=== PATIENT | male | born 1980 | race Caucasian/White ===

== ENCOUNTER 2016-09-04 13:49 | Inpatient (IN) | payer OTHER ==
[2016-09-04] MEDS ORDERED: ONDANSETRON 4 MG/2 ML VIAL IVP STA (14:23)
[2016-09-04] MEDS ORDERED: SODIUM CHLORIDE 0.9% 1,000 ML IV STA ×3 (14:23→15:44)
[2016-09-04] MEDS ORDERED: PANTOPRAZOLE 40 MG/10 ML VIAL IVP STA (14:23)
[2016-09-04] MEDS ORDERED: SODIUM CHLORIDE 0.9% 500 ML IV STA ×2 (14:23→15:44)
[2016-09-04 14:53] LABS: Basophils % (A) 0 %; CH 29.4; CHCM 32.2; Eosinophils % (A) 0 %; HCT 39.9 % (39.0-53.0); HDW 2.47; HGB 12.7 gm/dL (13.0-17.5); Luc % (Auto) 1; Lymphocytes % (A) 6 %; MCH 29.3 pg (25.0-35.0); MCHC 31.9 g/dL (31.0-37.0); MCV 91.8 fL (80.0-100.0); Mean Platelet Volume 7.5; Monocytes # (A) 0.4 k/uL (0-1.0); Monocytes % (A) 3 %; Neutrophils # (A) 13.9 k/uL (1.3-7.7); Neutrophils % (A) 90 %; RBC 4.35 m/uL (4.30-5.90); RDW 13.4 % (11.5-15.5); WBC 15.5 k/uL (3.8-10.6); WBC (Perox) 15.24
--- NOTE | 2016-09-04 14:58 | ED ---
General Adult HPI - General Chief complaint: Nausea/Vomiting/Diarrhea Stated complaint: Weakness Time Seen by Provider: 09/04/16 14:22 Source: EMS, RN notes reviewed, old records reviewed Mode of arrival: EMS Limitations: no limitations - History of Present Illness Initial comments: This is a 36-year-old male here for evaluation nausea vomiting diarrhea. Patient is of from diabetes, has had previous DKA. Patient is in severe distress with vomiting unable to give a great history, patient denies drugs or alcohol abuse, denies fevers. No chest patient was with her bowel movement. Patient is brought in by EMS states patient's blood sugar was critically high, history otherwise is obtained from EMS and the patient's chart - Related Data Home Medications Medication Instructions Recorded Confirmed Lisinopril [Zestril] 2.5 mg PO DAILY 08/30/15 09/04/16 Multivitamin [Men's Multi-Vitamin] 1 tab PO DAILY 08/30/15 09/04/16 Varenicline [Chantix] 1 mg PO BID 03/15/16 09/04/16 Insulin Aspart (For Pump) [NovoLOG 0.01 unit SQ-PUMP CONTINUOUS 05/23/16 (For Pump)] Acyclovir [Zovirax] 800 mg PO TID 09/04/16 09/04/16 Citalopram Hydrobromide [CeleXA] 20 mg PO DAILY 09/04/16 09/04/16 Gabapentin [Neurontin] 100 mg PO DAILY 09/04/16 09/04/16 Pregabalin [Lyrica] 200 mg PO BID 09/04/16 09/04/16 Previous Rx's Medication Instructions Recorded Tamsulosin [Flomax] 0.4 mg PO PC-[id number] #30 cap.er.24h 03/19/16 Metoprolol Tartrate 25 mg PO BID #0 03/22/16 Allergies Allergy/AdvReac Type Severity Reaction Status Date / Time No Known Allergies Allergy Verified 09/04/16 14:11 Review of Systems ROS Statement: Those systems with pertinent positive or pertinent negative responses have been documented in the HPI. ROS Other: All systems not noted in ROS Statement are negative. Past Medical History Past Medical History: Diabetes Mellitus, Hypertension Additional Past Medical History / Comment(s): WOUND TO LEFT DORSUM FOOT, insulin pump History of Any Multi-Drug Resistant Organisms: None Reported Past Surgical History: Orthopedic Surgery Additional Past Surgical History / Comment(s): hand surg.-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 Amputation of L great toe. Surgical I & D left foot dorsum Past Anesthesia/Blood Transfusion Reactions: No Reported Reaction Past Psychological History: Depression Smoking Status: Current every day smoker Past Alcohol Use History: Rare Additional Past Alcohol Use History / Comment(s): pt states he smokes 4 to 5 cigs a day but is using chantix to quit. He denies any medical marijuana, marijuana, street drug use. He is currently living at home with his . 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 There is a dog and a rabbit in the home. No service. No recent travels. Past Drug Use History: None Reported - Past Family History Father Family Medical History: No Reported History Mother Family Medical History: Cancer General Exam Limitations: no limitations General appearance: alert, in no apparent distress Head exam: Present: atraumatic, normocephalic, normal inspection Eye exam: Present: normal appearance, PERRL, EOMI. Absent: scleral icterus, conjunctival injection, periorbital swelling ENT exam: Present: mucous membranes dry Neck exam: Present: normal inspection. Absent: tenderness, meningismus, lymphadenopathy Respiratory exam: Present: normal lung sounds bilaterally. Absent: respiratory distress, wheezes, rales, rhonchi, stridor Cardiovascular Exam: Present: normal rhythm, tachycardia, normal heart sounds. Absent: systolic murmur, diastolic murmur, rubs, gallop, clicks GI/Abdominal exam: Present: soft, normal bowel sounds. Absent: distended, tenderness, guarding, rebound, rigid Extremities exam: Present: normal inspection, full ROM, normal capillary refill. Absent: tenderness, pedal edema, joint swelling, calf tenderness Back exam: Present: normal inspection Neurological exam: Present: alert, oriented X3, CN II-XII intact Psychiatric exam: Present: normal affect, normal mood Skin exam: Present: warm, dry, intact, normal color. Absent: rash Course Vital Signs 09/04/16 09/04/16 13:53 15:34 Temperature 98.7 F Pulse Rate 115 H 119 H Respiratory 22 22 Rate Blood Pressure 140/66 131/61 O2 Sat by Pulse 99 100 Oximetry - Reevaluation(s) Reevaluation #1: 09/04/16 15:46 Patient is doing mildly improved with symptom control, antiemetics and IV fluid EKG Findings - EKG Comments: EKG Findings:: EKG shows sinus tachycardia rate 1:15, ID 142, QRS 90, QTC 439 Medical Decision Making - Medical Decision Making 36 Melvia Yg nausea vomiting diarrhea. Patient having DKA, indicated patient is a type I diabetic. Patient will be admitted for insulin therapy, nothing by mouth, IV hydration and re-auscultation, monitoring of electrolytes, telemetry. - Lab Data Result diagrams: 09/04/16 13:57 09/04/16 13:57 Lab Results 09/04/16 09/04/16 09/04/16 Range/Units 13:57 13:57 13:57 WBC 15.5 H (3.8-10.6) k/uL RBC 4.35 (4.30-5.90) m/uL Hgb 12.7 L (13.0-17.5) gm/dL Hct 39.9 (39.0-53.0) % MCV 91.8 (80.0-100.0) fL MCH 29.3 (25.0-35.0) pg MCHC 31.9 (31.0-37.0) g/dL RDW 13.4 (11.5-15.5) % Plt Count 283 (150-450) k/uL Neutrophils % 90 % Lymphocytes % 6 % Monocytes % 3 % Eosinophils % 0 % Basophils % 0 % Neutrophils # 13.9 H (1.3-7.7) k/uL Lymphocytes # 1.0 (1.0-4.8) k/uL Monocytes # 0.4 (0-1.0) k/uL Eosinophils # 0.0 (0-0.7) k/uL Basophils # 0.0 (0-0.2) k/uL VBG pH (7.31-7.41) VBG pCO2 (37-51) mmHg VBG HCO3 (24-28) mmol/L Sodium 132 L (137-145) mmol/L Potassium 5.3 H (3.5-5.1) mmol/L Chloride 94 L (98-107) mmol/L Carbon Dioxide 7 L* (22-30) mmol/L Anion Gap 31 mmol/L BUN 49 H (9-20) mg/dL Creatinine 1.15 (0.66-1.25) mg/dL Est GFR (MDRD) Af Amer >60 (>60 ml/min/1.73 sqM) Est GFR (MDRD) Non-Af >60 (>60 ml/min/1.73 sqM) Glucose 517 H* (74-99) mg/dL Calcium 9.0 (8.4-10.2) mg/dL Phosphorus 4.3 (2.5-4.5) mg/dL Magnesium 2.3 (1.6-2.3) mg/dL Total Bilirubin 1.2 (0.2-1.3) mg/dL AST 35 (17-59) U/L ALT 50 (21-72) U/L Alkaline Phosphatase 101 (38-126) U/L Total Creatine Kinase 180 H (55-170) U/L CK-MB (CK-2) 3.5 H* (0.0-2.4) ng/mL CK-MB (CK-2) Rel Index 1.9 Troponin I 0.017 (0.000-0.034) ng/mL Total Protein 6.9 (6.3-8.2) g/dL Albumin 4.2 (3.5-5.0) g/dL Acetone, Qual Positive (Negative) 09/04/16 Range/Units 14:41 WBC (3.8-10.6) k/uL RBC (4.30-5.90) m/uL Hgb (13.0-17.5) gm/dL Hct (39.0-53.0) % MCV (80.0-100.0) fL MCH (25.0-35.0) pg MCHC (31.0-37.0) g/dL RDW (11.5-15.5) % Plt Count (150-450) k/uL Neutrophils % % Lymphocytes % % Monocytes % % Eosinophils % % Basophils % % Neutrophils # (1.3-7.7) k/uL Lymphocytes # (1.0-4.8) k/uL Monocytes # (0-1.0) k/uL Eosinophils # (0-0.7) k/uL Basophils # (0-0.2) k/uL VBG pH 7.22 L (7.31-7.41) VBG pCO2 18 L* (37-51) mmHg VBG HCO3 7 L* (24-28) mmol/L Sodium (137-145) mmol/L Potassium (3.5-5.1) mmol/L Chloride (98-107) mmol/L Carbon Dioxide (22-30) mmol/L Anion Gap mmol/L BUN (9-20) mg/dL Creatinine (0.66-1.25) mg/dL Est GFR (MDRD) Af Amer (>60 ml/min/1.73 sqM) Est GFR (MDRD) Non-Af (>60 ml/min/1.73 sqM) Glucose (74-99) mg/dL Calcium (8.4-10.2) mg/dL Phosphorus (2.5-4.5) mg/dL Magnesium (1.6-2.3) mg/dL Total Bilirubin (0.2-1.3) mg/dL AST (17-59) U/L ALT (21-72) U/L Alkaline Phosphatase (38-126) U/L Total Creatine Kinase (55-170) U/L CK-MB (CK-2) (0.0-2.4) ng/mL CK-MB (CK-2) Rel Index Troponin I (0.000-0.034) ng/mL Total Protein (6.3-8.2) g/dL Albumin (3.5-5.0) g/dL Acetone, Qual (Negative) Critical Care Time Critical Care Time: Yes Total Critical Care Time: 31 Disposition Clinical Impression: Dehydration, Gastroenteritis, DKA (diabetic ketoacidoses) Disposition: ADMITTED IP TO THIS [facility] Condition: Serious Referrals: Eliana Ramsay MD [Primary Care Provider] - 1-2 days
[2016-09-04 15:00] LABS: VBG PH 7.22 (7.31-7.41)
[2016-09-04 15:09] LABS: ALT 50 U/L (21-72); AST 35 U/L (17-59); Alkaline Phosphatase 101 U/L (38-126); Anion Gap 31 mmol/L; Blood Urea Nitrogen 49 mg/dL (9-20); Chloride 94 mmol/L (98-107); Magnesium 2.3 mg/dL (1.6-2.3); Non-African American GFR(MDRD) >60 (>60 ml/min/1.73 sqM); Phosphorous 4.3 mg/dL (2.5-4.5); Potassium 5.3 mmol/L (3.5-5.1); Sodium 132 mmol/L (137-145); Total Bilirubin 1.2 mg/dL (0.2-1.3); Total Protein 6.9 g/dL (6.3-8.2)
[2016-09-04 15:29] LABS: Troponin I 0.017 ng/mL (0.000-0.034)
[2016-09-04 15:32] LABS: Creatine Kinase MB 3.5 ng/mL (0.0-2.4)
[2016-09-04 15:36] LABS: Glucose 517 mg/dL (74-99)
[2016-09-04 15:37] LABS: Carbon Dioxide 7 mmol/L (22-30)
[2016-09-04] MEDS ORDERED: SODIUM CHLORIDE 0.9% 1,000 ML IV ONE (15:44)
[2016-09-04] MEDS ORDERED: INSULIN REGULAR BOLUS (FROM DRIP BAG) IV ONE ×2 (15:44→17:08)
[2016-09-04] MEDS ORDERED: INSULIN REGULAR 100 UNIT in SODIUM CHLORIDE 0.9% 100 ML IV SCH (15:45)
[2016-09-04] MEDS ORDERED: SODIUM CHLORIDE 0.9% 1,000 ML IV SCH (15:45)
[2016-09-04 16:40] LABS: Glucose,Whole Blood 450 mg/dL (75-99)
[2016-09-04 17:03] LABS: Glucose,Whole Blood 415 mg/dL (75-99)
[2016-09-04] MEDS ORDERED: Potassium Replacement Protocol 1 EACH MISC MISCELLANE PRN (17:08)
[2016-09-04] MEDS ORDERED: Magnesium Replacement Protocol 1 EACH MISC MISCELLANE PRN (17:08)
[2016-09-04 17:44] VITALS: RESP 16
[2016-09-04 18:00] LABS: Glucose,Whole Blood 382 mg/dL (75-99)
[2016-09-04] MEDS: D5-0.45% NACL WITH KCL 20MEQ/L 1,000 ML IV SCH ×2 (18:49→23:00)
[2016-09-04 19:01] LABS: Anion Gap 24 mmol/L; Blood Urea Nitrogen 41 mg/dL (9-20); Chloride 108 mmol/L (98-107); Glucose 375 mg/dL (74-99); Non-African American GFR(MDRD) >60 (>60 ml/min/1.73 sqM); Phosphorous 3.8 mg/dL (2.5-4.5); Potassium 4.7 mmol/L (3.5-5.1); Sodium 138 mmol/L (137-145)
[2016-09-04 19:06] LABS: Carbon Dioxide 6 mmol/L (22-30)
[2016-09-04 19:24] LABS: Glucose,Whole Blood 344 mg/dL (75-99)
[2016-09-04 20:06] LABS: Glucose,Whole Blood 313 mg/dL (75-99)
[2016-09-04 21:07] LABS: Glucose,Whole Blood 261 mg/dL (75-99)
[2016-09-04 21:18] LABS: Appearance,Urine Clear (Clear); Bilirubin,Urine Negative (Negative); Glucose,Urine (UA) 4+ (Negative); Leukocyte Esterase,Urine Negative (Negative); Nitrite,Urine Negative (Negative); Protein,Urine Negative (Negative); Specific Gravity,Urine 1.013 (1.001-1.035); UA Billing (MACRO vs. MICRO) CHEM; Urobilinogen,Urine <2.0 mg/dL (<2.0)
[2016-09-04 21:34] LABS: Ketones,Urine 4+ (Negative)
[2016-09-04] MEDS: METOPROLOL TARTRATE 25 MG TAB PO SCH (22:09)
[2016-09-04] MEDS: PREGABALIN 100 MG CAP PO SCH (22:09)
[2016-09-04] MEDS: VARENICLINE 1 MG TAB PO SCH (22:09)
[2016-09-04] MEDS: ACYCLOVIR 800 MG TAB PO SCH (22:09)
[2016-09-04 22:11] LABS: Glucose,Whole Blood 223 mg/dL (75-99)
[2016-09-04 22:53] LABS: Anion Gap 17 mmol/L; Blood Urea Nitrogen 34 mg/dL (9-20); Carbon Dioxide 13 mmol/L (22-30); Chloride 110 mmol/L (98-107); Glucose 231 mg/dL (74-99); Non-African American GFR(MDRD) >60 (>60 ml/min/1.73 sqM); Phosphorous 2.4 mg/dL (2.5-4.5); Potassium 4.3 mmol/L (3.5-5.1); Sodium 140 mmol/L (137-145)
[2016-09-04 23:08] LABS: Glucose,Whole Blood 232 mg/dL (75-99)
[2016-09-05 00:03] LABS: Glucose,Whole Blood 188 mg/dL (75-99)
[2016-09-05 01:03] LABS: Glucose,Whole Blood 142 mg/dL (75-99)
[2016-09-05 02:08] LABS: Glucose,Whole Blood 145 mg/dL (75-99)
[2016-09-05 02:35] LABS: Anion Gap 9 mmol/L; Blood Urea Nitrogen 30 mg/dL (9-20); Carbon Dioxide 20 mmol/L (22-30); Chloride 113 mmol/L (98-107); Glucose 135 mg/dL (74-99); Non-African American GFR(MDRD) >60 (>60 ml/min/1.73 sqM); Phosphorous 2.1 mg/dL (2.5-4.5); Potassium 4.2 mmol/L (3.5-5.1); Sodium 142 mmol/L (137-145)
[2016-09-05 02:56] LABS: Glucose,Whole Blood 120 mg/dL (75-99)
[2016-09-05 04:06] LABS: Glucose,Whole Blood 143 mg/dL (75-99)
[2016-09-05] MEDS ORDERED: D5-0.45% NACL WITH KCL 20MEQ/L 1,000 ML IV SCH (05:00)
[2016-09-05 05:06] LABS: Glucose,Whole Blood 132 mg/dL (75-99)
[2016-09-05 06:07] LABS: Glucose,Whole Blood 158 mg/dL (75-99)
[2016-09-05] MEDS: INSULIN LISPRO (humaLOG) 300 UNIT/3 ML VIAL SQ SCH ×6 (06:58→17:21)
[2016-09-05 07:11] LABS: Glucose,Whole Blood 226 mg/dL (75-99)
[2016-09-05] MEDS ORDERED: TAMSULOSIN 0.4 MG CAP.ER.24H PO SCH (08:30)
[2016-09-05] MEDS ORDERED: LISINOPRIL 2.5 MG TAB PO SCH (09:00)
[2016-09-05] MEDS ORDERED: CITALOPRAM HYDROBROMIDE 20 MG TAB PO SCH (09:00)
[2016-09-05] MEDS ORDERED: MULTIVITAMINS, THERA 1 EACH TAB PO SCH (09:00)
[2016-09-05] MEDS ORDERED: INSULIN GLARGINE 100 UNIT/ML 10 ML VIAL SQ SCH (09:00)
[2016-09-05] MEDS ORDERED: GABAPENTIN 100 MG CAP PO SCH (09:00)
[2016-09-05] MEDS: METOPROLOL TARTRATE 25 MG TAB PO SCH (09:24)
[2016-09-05] MEDS: VARENICLINE 1 MG TAB PO SCH (09:24)
[2016-09-05] MEDS: ACYCLOVIR 800 MG TAB PO SCH ×2 (09:24→17:19)
[2016-09-05] MEDS: PREGABALIN 100 MG CAP PO SCH (09:25)
[2016-09-05 11:24] VITALS: BMI 20.4
[2016-09-05 11:31] LABS: Glucose,Whole Blood 432 mg/dL (75-99)
[2016-09-05] MEDS ORDERED: INSULIN REGULAR 100 UNIT/ML VIAL IV ONE ×2 (12:06→18:54)
[2016-09-05 13:56] LABS: Glucose,Whole Blood 494 mg/dL (75-99)
[2016-09-05] MEDS ORDERED: INSULIN LISPRO (humaLOG) 300 UNIT/3 ML VIAL SQ PRN (14:29)
[2016-09-05] MEDS ORDERED: INSULIN PUMP BASAL RATES 1 EACH MISC MISCELLANE PRN (14:29)
[2016-09-05] MEDS ORDERED: INSPUCOR MISCELLANE PRN (14:29)
[2016-09-05 14:53] LABS: Hemoglobin A1C 9.7 % (4.2-6.1)
[2016-09-05 15:38] LABS: Glucose,Whole Blood 334 mg/dL (75-99)
[2016-09-05 16:21] LABS: Glucose,Whole Blood 320 mg/dL (75-99)
--- NOTE | 2016-09-05 17:19 | P.HPIM ---
History of Present Illness H&P Date: 09/05/16 Chief Complaint: Nausea 36-year-old gentleman with the diabetes type 1 on a insulin pump comes in the hospital with episode of nausea and multiple episodes of vomiting prior to admission. Patient stated that his kids were sick and he has not been feeling his usual health a day prior to admission. In the ER patient was noted to be in diabetic ketoacidosis was started on a drip and then transferred off back to his insulin pump. His insulin pump settings were 0.85 units per hour basal and patient does 1 unit per 10 g of carbohydrate count pre-meal. Patient sees an insurance and benefits clerk out of the [place] system. Patient's laboratory values are within normal limits. Denies having any nausea , vomiting, diarrhea. Patient tolerated his lunch well denies having any additional complaints. States to be in his normal health of this time. Review of Systems All systems: negative (Noted in HPI) Past Medical History Past Medical History: Diabetes Mellitus, Hypertension Additional Past Medical History / Comment(s): WOUND TO LEFT DORSUM FOOT (closed) , insulin pump, neuropathy History of Any Multi-Drug Resistant Organisms: None Reported Past Surgical History: Orthopedic Surgery Additional Past Surgical History / Comment(s): hand surg.-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 Amputation of L great toe. Surgical I & D left foot dorsum Past Anesthesia/Blood Transfusion Reactions: No Reported Reaction Past Psychological History: Depression Smoking Status: Light tobacco smoker Past Alcohol Use History: Rare Additional Past Alcohol Use History / Comment(s): pt states he smokes 4 to 5 cigs a day but is using chantix to quit. He denies any medical marijuana, marijuana, street drug use. He is currently living at home with his . 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 There is a dog and a rabbit in the home. No service. No recent travels. Past Drug Use History: None Reported Additional Drug Use History / Comment(s): smokes 1-2 daily - Past Family History Father Family Medical History: No Reported History Mother Family Medical History: Cancer Medications and Allergies Home Medications Medication Instructions Recorded Confirmed Type Lisinopril [Zestril] 2.5 mg PO DAILY 08/30/15 09/04/16 History Multivitamin [Men's Multi-Vitamin] 1 tab PO DAILY 08/30/15 09/04/16 History Varenicline [Chantix] 1 mg PO BID 03/15/16 09/04/16 History Insulin Aspart (For Pump) [NovoLOG 0.01 unit SQ-PUMP CONTINUOUS 05/23/16 History (For Pump)] Acyclovir [Zovirax] 800 mg PO TID 09/04/16 09/04/16 History Citalopram Hydrobromide [CeleXA] 20 mg PO DAILY 09/04/16 09/04/16 History Gabapentin [Neurontin] 100 mg PO DAILY 09/04/16 09/04/16 History Pregabalin [Lyrica] 200 mg PO BID 09/04/16 09/04/16 History Allergies Allergy/AdvReac Type Severity Reaction Status Date / Time No Known Allergies Allergy Verified 09/04/16 14:11 Physical Exam Vitals: Vital Signs Temp Pulse Resp BP Pulse Ox 09/05/16 12:00 98 124/67 95 09/05/16 08:00 96.7 F L 101 H 113/59 96 09/05/16 03:41 97.0 F L 95 16 116/63 96 09/05/16 00:00 16 126/63 95 09/04/16 20:00 96.8 F L 114 H 16 140/71 97 09/04/16 18:06 116 H 16 Intake and Output 09/05/16 09/05/16 09/05/16 06:59 14:59 22:59 Intake Total 45.650 236 Output Total 0 Balance 45.650 236 Intake: Intake, IV Titration 45.650 Amount Insulin Regular 100 unit 45.650 In Sodium Chloride 0.9% 100 ml @ 0.1 UNITS/KG/HR 7.33 mls/hr IV .[id number] [facility] Rx#:[id number] Oral 236 Output: Urine 0 Other: # Voids 1 Weight 68.2 kg 68.2 kg Patient Weight 09/06/16 06:59 Weight 68.2 kg Physical exam Gen. appearance oriented 3 in no distress Neck is supple no JVD Lungs good air entry clear to auscultation no rhonchi or wheezing Heart S1-S2 heard regular rate and rhythm no murmurs appreciated Abdomen is soft nontender no organomegaly bowel sounds are intact Neurologically cranial nerves II-12 grossly intact no focal motor or sensory deficits noted Skin no abnormalities appreciated Results CBC & Chem 7: 09/04/16 13:57 09/05/16 01:57 Labs: Abnormal Lab Results - Last 24 Hours (Table) 09/04/16 09/04/16 09/04/16 Range/Units 17:54 17:58 19:20 Chloride 108 H (98-107) mmol/L Carbon Dioxide 6 L* (22-30) mmol/L BUN 41 H (9-20) mg/dL Glucose 375 H (74-99) mg/dL POC Glucose (mg/dL) 382 H (75-99) mg/dL Phosphorus (2.5-4.5) mg/dL Urine Glucose (UA) 4+ H (Negative) Urine Ketones 4+ H (Negative) 09/04/16 09/04/16 09/04/16 Range/Units 19:22 20:04 21:06 Chloride (98-107) mmol/L Carbon Dioxide (22-30) mmol/L BUN (9-20) mg/dL Glucose (74-99) mg/dL POC Glucose (mg/dL) 344 H 313 H 261 H (75-99) mg/dL Phosphorus (2.5-4.5) mg/dL Urine Glucose (UA) (Negative) Urine Ketones (Negative) 09/04/16 09/04/16 09/04/16 Range/Units 22:10 22:17 23:06 Chloride 110 H (98-107) mmol/L Carbon Dioxide 13 L (22-30) mmol/L BUN 34 H (9-20) mg/dL Glucose 231 H (74-99) mg/dL POC Glucose (mg/dL) 223 H 232 H (75-99) mg/dL Phosphorus 2.4 L (2.5-4.5) mg/dL Urine Glucose (UA) (Negative) Urine Ketones (Negative) 09/05/16 09/05/16 09/05/16 Range/Units 00:01 01:02 01:57 Chloride 113 H (98-107) mmol/L Carbon Dioxide 20 L (22-30) mmol/L BUN 30 H (9-20) mg/dL Glucose 135 H (74-99) mg/dL POC Glucose (mg/dL) 188 H 142 H (75-99) mg/dL Phosphorus 2.1 L (2.5-4.5) mg/dL Urine Glucose (UA) (Negative) Urine Ketones (Negative) 09/05/16 09/05/16 09/05/16 Range/Units 02:03 02:55 04:04 Chloride (98-107) mmol/L Carbon Dioxide (22-30) mmol/L BUN (9-20) mg/dL Glucose (74-99) mg/dL POC Glucose (mg/dL) 145 H 120 H 143 H (75-99) mg/dL Phosphorus (2.5-4.5) mg/dL Urine Glucose (UA) (Negative) Urine Ketones (Negative) 09/05/16 09/05/16 09/05/16 Range/Units 05:04 06:05 07:00 Chloride (98-107) mmol/L Carbon Dioxide (22-30) mmol/L BUN (9-20) mg/dL Glucose (74-99) mg/dL POC Glucose (mg/dL) 132 H 158 H 226 H (75-99) mg/dL Phosphorus (2.5-4.5) mg/dL Urine Glucose (UA) (Negative) Urine Ketones (Negative) 09/05/16 09/05/16 09/05/16 Range/Units 11:28 13:54 15:17 Chloride (98-107) mmol/L Carbon Dioxide (22-30) mmol/L BUN (9-20) mg/dL Glucose (74-99) mg/dL POC Glucose (mg/dL) 432 H 494 H 334 H (75-99) mg/dL Phosphorus (2.5-4.5) mg/dL Urine Glucose (UA) (Negative) Urine Ketones (Negative) 09/05/16 Range/Units 16:17 Chloride (98-107) mmol/L Carbon Dioxide (22-30) mmol/L BUN (9-20) mg/dL Glucose (74-99) mg/dL POC Glucose (mg/dL) 320 H (75-99) mg/dL Phosphorus (2.5-4.5) mg/dL Urine Glucose (UA) (Negative) Urine Ketones (Negative) Microbiology - Last 24 Hours (Table) 09/04/16 19:20 Urine Culture - Preliminary Urine,Voided Thrombosis Risk Factor Assmnt - Choose All That Apply Any of the Below Risk Factors Present?: No Assessment and Plan Plan: #1 diabetic ketoacidosis #2 leukocytosis #3 viral syndrome Plan Patient will be given IV regular insulin 5 units. Patient is to continue his home regimen. The case likely secondary to viral etiology. Patient denies having any constitutional symptoms at this time. Patient will be given an additional 1 L of lactated ringer solution prior to discharge. recommended to follow-up with his primary care physician.
[2016-09-05 17:58] VITALS: BP 118/65; PULSE 103; TEMP 97.2
[2016-09-05] MEDS ORDERED: LACTATED RINGERS 1,000 ML IV ONE (19:00)
== END 2016-09-05 21:46 | disposition home or self-care (01) | DRG 639 ==
LOC: EC 13:49 → SUPCPDRO 13:49 → 6SEL 15:45
PROVIDERS: ADMIT Hospitalist; ATTEND Hospitalist
DX: E10.10 Type 1 diabetes mellitus with ketoacidosis without coma (principal); E10.40 Type 1 diabetes mellitus with diabetic neuropathy, unspecified; I10 Essential (primary) hypertension; F32.9 Major depressive disorder, single episode, unspecified; E86.0 Dehydration; F17.200 Nicotine dependence, unspecified, uncomplicated; K52.9 Noninfective gastroenteritis and colitis, unspecified; B34.9 Viral infection, unspecified; D72.829 Elevated white blood cell count, unspecified; Z79.4 Long term (current) use of insulin; Z96.41 Presence of insulin pump (external) (internal); Z79.899 Other long term (current) drug therapy; Z89.412 Acquired absence of left great toe; Z89.021 Acquired absence of right finger(s)
CPT/HCPCS: 36415; 80051; 80053; 81003; 82009; 82550; 82553; 82565; 82803; 82947; 83036; 83735; 84100; 84484; 84520; 85025; 87086; 93005; 96361; 96375; 99291

== ENCOUNTER 2017-08-17 12:36 | Inpatient (IN) | payer OTHER ==
[2017-08-17 13:28] LABS: Glucose,Whole Blood 408 mg/dL (75-99)
[2017-08-17] MEDS ORDERED: SODIUM CHLORIDE 0.9% 2,000 ML IV ONE (13:49)
[2017-08-17] MEDS ORDERED: KETOROLAC 30 MG/ML 1 ML VIAL IVP STA (13:49)
[2017-08-17] MEDS ORDERED: diphenhydrAMINE 50 MG/ML 1 ML VIAL IVP STA (13:49)
[2017-08-17] MEDS ORDERED: METOCLOPRAMIDE 5 MG/ML 2 ML VIAL IVP STA (13:49)
[2017-08-17 14:03] LABS: Basophils # (A) 0.1 k/uL (0-0.2); Basophils % (A) 0 %; Eosinophils % (A) 0 %; HCT 45.6 % (39.0-53.0); HGB 15.2 gm/dL (13.0-17.5); Lymphocytes # (A) 1.4 k/uL (1.0-4.8); Lymphocytes % (A) 13 %; MCH 30.7 pg (25.0-35.0); MCHC 33.3 g/dL (31.0-37.0); MCV 92.3 fL (80.0-100.0); Mean Platelet Volume 7.3; Monocytes # (A) 0.3 k/uL (0-1.0); Monocytes % (A) 3 %; Neutrophils # (A) 8.7 k/uL (1.3-7.7); Neutrophils % (A) 82 %; Platelet Count 289 k/uL (150-450); RBC 4.95 m/uL (4.30-5.90); RDW 12.5 % (11.5-15.5); WBC 10.5 k/uL (3.8-10.6)
--- NOTE | 2017-08-17 14:05 | ED ---
General Adult HPI - General Chief complaint: Abdominal Pain Stated complaint: Abd Pain, vomiting, diabetic Time Seen by Provider: 08/17/17 13:34 Source: patient Mode of arrival: ambulatory Limitations: no limitations - History of Present Illness Initial comments: Is a 37-year-old male with a history of type 1 diabetes, retinopathy, neuropathy who presents emergency department for nausea and vomiting are states is been going on for the last 3 or 4 days. Is also complaining of some generalized abdominal pain. He denies any fevers or chills. He does admit to a mild cough and rhinorrhea area no sore throat or shortness of breath. No chest pain. He states his sugars have been running high in the 250s to 300s at home. His [id number] glucose was 400 and triage. He denies any lightheadedness or dizziness. He states that he does occasionally get nausea and vomiting and sometimes it does indicate that he is in DKA however was inquiring about possible gastroparesis. He denies any diarrhea. States he's also been having a little bit of constipation. No dysuria or hematuria. No other complaints. - Related Data Home Medications Medication Instructions Recorded Confirmed Lisinopril [Zestril] 2.5 mg PO DAILY 08/30/15 08/17/17 Multivitamin [Men's Multi-Vitamin] 1 tab PO DAILY 08/30/15 08/17/17 Escitalopram [Lexapro] 20 mg PO DAILY 08/17/17 08/17/17 Insulin Aspart [NovoLOG Flexpen] See Protocol SQ ACHS 08/17/17 08/17/17 Insulin Glargine,Hum.rec.anlog 36 unit SQ HS 08/17/17 08/17/17 [Lantus Solostar] Pregabalin [Lyrica] 200 mg PO BID 08/17/17 08/17/17 Tamsulosin [Flomax] 0.4 mg PO BID 08/17/17 08/17/17 buPROPion SR [Wellbutrin Sr] 150 mg PO BID 08/17/17 08/17/17 Allergies Allergy/AdvReac Type Severity Reaction Status Date / Time No Known Allergies Allergy Verified 08/17/17 13:35 Review of Systems ROS Statement: Those systems with pertinent positive or pertinent negative responses have been documented in the HPI. ROS Other: All systems not noted in ROS Statement are negative. Past Medical History Past Medical History: Diabetes Mellitus, Hypertension Additional Past Medical History / Comment(s): WOUND TO LEFT DORSUM FOOT (closed) , insulin pump, neuropathy History of Any Multi-Drug Resistant Organisms: None Reported Past Surgical History: Orthopedic Surgery Additional Past Surgical History / Comment(s): hand surg.-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 Amputation of L great toe. Surgical I & D left foot dorsum Past Anesthesia/Blood Transfusion Reactions: No Reported Reaction Past Psychological History: Depression Smoking Status: Light tobacco smoker Past Alcohol Use History: Rare Past Drug Use History: None Reported - Past Family History Father Family Medical History: No Reported History Mother Family Medical History: Cancer General Exam - General Exam Comments Initial Comments: Constitutional: Awake alert Appears comfortable Head: Normocephalic atraumatic Eyes: no conjunctival injection No scleral icterus EOMI, pupils are 2 mm and reactive Neck: No JVD Supple Heart: Tachycardic with regular rhythm normal S1-S2 no murmurs Lungs: Not tachypneic Clear to auscultation bilaterally No wheezing No rales Abdomen: Soft nondistended mild tenderness periumbilically without rebound or guarding Extremities: Non edematous DP pulses intact Radial pulses intact Neuro: A&Ox3 No focal neurologic deficits Psych: Appropriate mood and affect Limitations: no limitations Course Vital Signs 08/17/17 13:15 Temperature 98.3 F Pulse Rate 122 H Respiratory 22 Rate Blood Pressure 106/56 O2 Sat by Pulse 99 Oximetry EKG Findings - EKG Comments: EKG Findings:: EKG showing sinus tachycardia with a rate of 112. No abnormal ST segment changes or T-wave inversions. QTC is 444. Other intervals normal. No ectopy. Medical Decision Making - Medical Decision Making Is a 37-year-old male who presents emergency department for nausea and vomiting. The patient was found to be in DKA with a bicarb of 18 and an anion Of 24. Sugar was 400. He was started on insulin drip and normal saline at 200 and hour. Potassium was 5.5. EKG was unchanged from previous. I updated the patient and told that he stay in the hospital. He agreed with plan. Dr. Soto accepted the admission. - Lab Data Result diagrams: 08/17/17 13:40 08/17/17 13:40 Lab Results 08/17/17 08/17/17 08/17/17 Range/Units 13:19 13:40 13:40 WBC 10.5 (3.8-10.6) k/uL RBC 4.95 (4.30-5.90) m/uL Hgb 15.2 (13.0-17.5) gm/dL Hct 45.6 (39.0-53.0) % MCV 92.3 (80.0-100.0) fL MCH 30.7 (25.0-35.0) pg MCHC 33.3 (31.0-37.0) g/dL RDW 12.5 (11.5-15.5) % Plt Count 289 (150-450) k/uL Neutrophils % 82 % Lymphocytes % 13 % Monocytes % 3 % Eosinophils % 0 % Basophils % 0 % Neutrophils # 8.7 H (1.3-7.7) k/uL Lymphocytes # 1.4 (1.0-4.8) k/uL Monocytes # 0.3 (0-1.0) k/uL Eosinophils # 0.0 (0-0.7) k/uL Basophils # 0.1 (0-0.2) k/uL PT (9.0-12.0) sec INR (<1.2) APTT (22.0-30.0) sec VBG pH (7.31-7.41) VBG pCO2 (37-51) mmHg VBG HCO3 (24-28) mmol/L Sodium 140 (137-145) mmol/L Potassium 5.5 H (3.5-5.1) mmol/L Chloride 98 (98-107) mmol/L Carbon Dioxide 18 L (22-30) mmol/L Anion Gap 24 mmol/L BUN 27 H (9-20) mg/dL Creatinine 0.97 (0.66-1.25) mg/dL Est GFR (MDRD) Af Amer >60 (>60 ml/min/1.73 sqM) Est GFR (MDRD) Non-Af >60 (>60 ml/min/1.73 sqM) Glucose 407 H (74-99) mg/dL POC Glucose (mg/dL) 408 H (75-99) mg/dL POC Glu Electronic Equipment Repairer ID Angelo, Tea Plasma Lactic Acid Lior (0.7-2.0) mmol/L Calcium 10.2 (8.4-10.2) mg/dL Total Bilirubin 1.0 (0.2-1.3) mg/dL AST 38 (17-59) U/L ALT 37 (21-72) U/L Alkaline Phosphatase 90 (38-126) U/L Total Protein 8.0 (6.3-8.2) g/dL Albumin 5.1 H (3.5-5.0) g/dL Urine Color Urine Appearance (Clear) Urine pH (5.0-8.0) Ur Specific Silt (1.001-1.035) Urine Protein (Negative) Urine Glucose (UA) (Negative) Urine Ketones (Negative) Urine Blood (Negative) Urine Nitrite (Negative) Urine Bilirubin (Negative) Urine Urobilinogen (<2.0) mg/dL Ur Leukocyte Esterase (Negative) Urine RBC (0-5) /hpf Urine WBC (0-5) /hpf Hyaline Casts (0-2) /lpf Urine Mucus (None) /hpf Acetone, Qual Positive (Negative) 08/17/17 08/17/17 08/17/17 Range/Units 13:40 13:40 13:57 WBC (3.8-10.6) k/uL RBC (4.30-5.90) m/uL Hgb (13.0-17.5) gm/dL Hct (39.0-53.0) % MCV (80.0-100.0) fL MCH (25.0-35.0) pg MCHC (31.0-37.0) g/dL RDW (11.5-15.5) % Plt Count (150-450) k/uL Neutrophils % % Lymphocytes % % Monocytes % % Eosinophils % % Basophils % % Neutrophils # (1.3-7.7) k/uL Lymphocytes # (1.0-4.8) k/uL Monocytes # (0-1.0) k/uL Eosinophils # (0-0.7) k/uL Basophils # (0-0.2) k/uL PT 10.0 (9.0-12.0) sec INR 1.0 (<1.2) APTT 21.9 L (22.0-30.0) sec VBG pH (7.31-7.41) VBG pCO2 (37-51) mmHg VBG HCO3 (24-28) mmol/L Sodium (137-145) mmol/L Potassium (3.5-5.1) mmol/L Chloride (98-107) mmol/L Carbon Dioxide (22-30) mmol/L Anion Gap mmol/L BUN (9-20) mg/dL Creatinine (0.66-1.25) mg/dL Est GFR (MDRD) Af Amer (>60 ml/min/1.73 sqM) Est GFR (MDRD) Non-Af (>60 ml/min/1.73 sqM) Glucose (74-99) mg/dL POC Glucose (mg/dL) (75-99) mg/dL POC Glu Electronic Equipment Repairer ID Plasma Lactic Acid Lior 1.5 (0.7-2.0) mmol/L Calcium (8.4-10.2) mg/dL Total Bilirubin (0.2-1.3) mg/dL AST (17-59) U/L ALT (21-72) U/L Alkaline Phosphatase (38-126) U/L Total Protein (6.3-8.2) g/dL Albumin (3.5-5.0) g/dL Urine Color Light Yellow Urine Appearance Clear (Clear) Urine pH 5.5 (5.0-8.0) Ur Specific Silt 1.024 (1.001-1.035) Urine Protein 1+ H (Negative) Urine Glucose (UA) 4+ H (Negative) Urine Ketones 4+ H (Negative) Urine Blood Negative (Negative) Urine Nitrite Negative (Negative) Urine Bilirubin Negative (Negative) Urine Urobilinogen <2.0 (<2.0) mg/dL Ur Leukocyte Esterase Negative (Negative) Urine RBC 1 (0-5) /hpf Urine WBC 2 (0-5) /hpf Hyaline Casts 3 H (0-2) /lpf Urine Mucus Rare H (None) /hpf Acetone, Qual (Negative) 08/17/17 Range/Units 14:00 WBC (3.8-10.6) k/uL RBC (4.30-5.90) m/uL Hgb (13.0-17.5) gm/dL Hct (39.0-53.0) % MCV (80.0-100.0) fL MCH (25.0-35.0) pg MCHC (31.0-37.0) g/dL RDW (11.5-15.5) % Plt Count (150-450) k/uL Neutrophils % % Lymphocytes % % Monocytes % % Eosinophils % % Basophils % % Neutrophils # (1.3-7.7) k/uL Lymphocytes # (1.0-4.8) k/uL Monocytes # (0-1.0) k/uL Eosinophils # (0-0.7) k/uL Basophils # (0-0.2) k/uL PT (9.0-12.0) sec INR (<1.2) APTT (22.0-30.0) sec VBG pH 7.36 (7.31-7.41) VBG pCO2 33 L (37-51) mmHg VBG HCO3 18 L (24-28) mmol/L Sodium (137-145) mmol/L Potassium (3.5-5.1) mmol/L Chloride (98-107) mmol/L Carbon Dioxide (22-30) mmol/L Anion Gap mmol/L BUN (9-20) mg/dL Creatinine (0.66-1.25) mg/dL Est GFR (MDRD) Af Amer (>60 ml/min/1.73 sqM) Est GFR (MDRD) Non-Af (>60 ml/min/1.73 sqM) Glucose (74-99) mg/dL POC Glucose (mg/dL) (75-99) mg/dL POC Glu Electronic Equipment Repairer ID Plasma Lactic Acid Lior (0.7-2.0) mmol/L Calcium (8.4-10.2) mg/dL Total Bilirubin (0.2-1.3) mg/dL AST (17-59) U/L ALT (21-72) U/L Alkaline Phosphatase (38-126) U/L Total Protein (6.3-8.2) g/dL Albumin (3.5-5.0) g/dL Urine Color Urine Appearance (Clear) Urine pH (5.0-8.0) Ur Specific Silt (1.001-1.035) Urine Protein (Negative) Urine Glucose (UA) (Negative) Urine Ketones (Negative) Urine Blood (Negative) Urine Nitrite (Negative) Urine Bilirubin (Negative) Urine Urobilinogen (<2.0) mg/dL Ur Leukocyte Esterase (Negative) Urine RBC (0-5) /hpf Urine WBC (0-5) /hpf Hyaline Casts (0-2) /lpf Urine Mucus (None) /hpf Acetone, Qual (Negative) Disposition Clinical Impression: DKA (diabetic ketoacidoses) Disposition: ADMITTED IP TO THIS [facility] Condition: Stable
[2017-08-17 14:06] LABS: Partial Thromboplastin Time 21.9 sec (22.0-30.0)
[2017-08-17 14:11] LABS: ALT 37 U/L (21-72); AST 38 U/L (17-59); Albumin 5.1 g/dL (3.5-5.0); Alkaline Phosphatase 90 U/L (38-126); Anion Gap 24 mmol/L; Blood Urea Nitrogen 27 mg/dL (9-20); Calcium 10.2 mg/dL (8.4-10.2); Carbon Dioxide 18 mmol/L (22-30); Chloride 98 mmol/L (98-107); Glucose 407 mg/dL (74-99); Potassium 5.5 mmol/L (3.5-5.1); Sodium 140 mmol/L (137-145)
--- NOTE | 2017-08-17 14:19 | XR ---
EXAMINATION TYPE: XR abdomen acute w AP chest DATE OF EXAM: 08/17/2017 COMPARISON: NONE HISTORY: 37-year-old male with pain TECHNIQUE: Supine, upright, and left side down lateral decubitus views of the abdomen are obtained. FINDINGS: Frontal view of the chest shows normal heart size, aorta, and pulmonary vasculature. No con solidation or pleural effusion. No evidence for free intraperitoneal air. No dilated small bowel or air-fluid levels. No significant stool burden. Mild scattered stool is present. Phlebolith in the left hemipelvis. IMPRESSION: 1. No acute cardiopulmonary process. 2. No evidence for free air or bowel obstruction.
[2017-08-17 14:28] LABS: Appearance,Urine Clear (Clear); Bilirubin,Urine Negative (Negative); Blood,Urine Negative (Negative); Color,Urine Light Yellow; Glucose,Urine (UA) 4+ (Negative); Hyaline Casts,Urine 3 /lpf (0-2); Leukocyte Esterase,Urine Negative (Negative); Mucus,Urine Rare /hpf; Nitrite,Urine Negative (Negative); PH, Urine 5.5 (5.0-8.0); Protein,Urine 1+ (Negative); RBC,Urine 1 /hpf (0-5); Specific Gravity,Urine 1.024 (1.001-1.035); Urobilinogen,Urine <2.0 mg/dL (<2.0); WBC,Urine 2 /hpf (0-5)
[2017-08-17 14:58] LABS: Ketones,Urine 4+ (Negative)
[2017-08-17 15:00] LABS: VBG PH 7.36 (7.31-7.41)
[2017-08-17] MEDS ORDERED: INSULIN REGULAR 100 UNIT in SODIUM CHLORIDE 0.9% 100 ML IV ONE (15:04)
[2017-08-17] MEDS ORDERED: SODIUM CHLORIDE 0.9% 1,000 ML IV SCH ×2 (15:15)
[2017-08-17 15:52] LABS: Glucose,Whole Blood 335 mg/dL (75-99)
[2017-08-17 16:31] LABS: Glucose,Whole Blood 240 mg/dL (75-99)
[2017-08-17 18:06] LABS: Glucose,Whole Blood 137 mg/dL (75-99)
[2017-08-17 18:28] LABS: Anion Gap 10 mmol/L; Blood Urea Nitrogen 27 mg/dL (9-20); Carbon Dioxide 26 mmol/L (22-30); Chloride 105 mmol/L (98-107); Glucose 121 mg/dL (74-99); Phosphorus 2.8 mg/dL (2.5-4.5); Potassium 4.2 mmol/L (3.5-5.1); Sodium 141 mmol/L (137-145)
[2017-08-17 18:32] VITALS: BMI 22.3
[2017-08-17 18:49] LABS: Glucose,Whole Blood 124 mg/dL (75-99)
[2017-08-17 19:35] LABS: Glucose,Whole Blood 112 mg/dL (75-99)
[2017-08-17] MEDS: D5-0.45% NACL WITH KCL 20MEQ/L 1,000 ML IV SCH (19:47)
[2017-08-17] MEDS ORDERED: INSULIN DETEMIR 100 UNIT/ML 10 ML VIAL SQ SCH (21:00)
[2017-08-17 21:10] LABS: Glucose,Whole Blood 92 mg/dL (75-99)
[2017-08-17] MEDS: INSULIN ASPART 100 UNIT/ML 1 ML 10 ML VIAL SQ SCH (21:51)
--- NOTE | 2017-08-17 22:01 | P.HPIM ---
History of Present Illness H&P Date: 08/17/17 Chief Complaint: Nausea and vomiting and abdominal pain Patient is a 37 old male with a known history of type 1 diabetes mellitus, diabetic neuropathy and retinopathy, hypertension came to ER with complains of nausea vomiting and unable to keep down food for the past 2 days. Patient has been having nausea and sweating and generalized abdominal pain. Denied any fever or chills otherwise.He does admit to a mild cough and rhinorrhea area no sore throat or shortness of breath. No chest pain. He states his sugars have been running high in the 250s to 300s at home. His [id number] glucose was 400 and triage. He denies any lightheadedness or dizziness. He states that he does occasionally get nausea and vomiting and sometimes it does indicate that he is in DKA however . He denies any diarrhea. States he's also been having a little bit of constipation. No dysuria or hematuria. No other complaints. Patient used to be on insulin pump but currently is taking Lantus and sliding scale due to lack of supplies for the pump. Patient says that he has been taking his insulin dose on daily basis. Patient was found to have CBG greater than 400 along with anion gap 24 and a stone positive. Patient was started on insulin drip. Review of Systems Constitutional: Patient denies any fever or chills . Generalized weakness and fatigue. Abdomen: Patient does have nausea and vomiting and abdominal pain no diarrhea. Occasional constipation. Cardiovascular: Patient denies any chest pain or short of breath no palpitations. Respiratory: patient denied any cough is from production. No shortness of breath Neurologic: Patient denied any numbness or tingling headache. Musculoskeletal: Patient denies any complaints of joint swelling or deformity. Skin: Negative Psychiatric: Negative Endocrine: No heat or cold intolerance. No recent weight gain. Genitourinary: No dysuria or hematuria. 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 Amputation of L great toe. Surgical I & D left foot dorsum Past Anesthesia/Blood Transfusion Reactions: No Reported Reaction Past Psychological History: Depression Smoking Status: Light tobacco smoker Past Alcohol Use History: Rare Past Drug Use History: None Reported - Past Family History Father Family Medical History: No Reported History Mother Family Medical History: Cancer Medications and Allergies Home Medications Medication Instructions Recorded Confirmed Type Lisinopril [Zestril] 2.5 mg PO DAILY 08/30/15 08/17/17 History Multivitamin [Men's Multi-Vitamin] 1 tab PO DAILY 08/30/15 08/17/17 History Escitalopram [Lexapro] 20 mg PO DAILY 08/17/17 08/17/17 History Insulin Aspart [NovoLOG Flexpen] See Protocol SQ ACHS 08/17/17 08/17/17 History Insulin Glargine,Hum.rec.anlog 36 unit SQ HS 08/17/17 08/17/17 History [Lantus Solostar] Pregabalin [Lyrica] 200 mg PO BID 08/17/17 08/17/17 History Tamsulosin [Flomax] 0.4 mg PO BID 08/17/17 08/17/17 History buPROPion SR [Wellbutrin Sr] 150 mg PO BID 08/17/17 08/17/17 History Allergies Allergy/AdvReac Type Severity Reaction Status Date / Time No Known Allergies Allergy Verified 08/17/17 13:35 Physical Exam Vitals: Vital Signs Temp Pulse Resp BP Pulse Ox 08/17/17 16:33 98 F 117 H 16 104/63 99 08/17/17 15:16 113 H 16 111/56 98 08/17/17 13:15 98.3 F 122 H 22 106/56 99 Intake and Output 08/17/17 08/17/17 08/17/17 06:59 14:59 22:59 Other: Weight 72.575 kg Patient Weight 08/18/17 06:59 Weight 72.575 kg PHYSICAL EXAMINATION: Patient is lying in the bed comfortably, no acute distress, awake alert and oriented.. HEENT: Normocephalic. Neck is supple. Pupils reactive. Nostrils clear. Oral cavity is moist. Ears reveal no drainage. Neck reveals no JVD, carotid bruits, or thyromegaly. CHEST EXAMINATION: Trachea is central. Symmetrical expansion. Lung swann clear to auscultation and percussion. CARDIAC: Normal S1, S2 with no gallops. No murmurs ABDOMEN: Soft. Bowel sounds normal. No organomegaly. No abdominal bruits. Extremities: reveal no edema. No clubbing or cyanosis Neurologically awake, alert, oriented x3 with well-coordinated movements. No focal deficits noted Skin: No rash or skin lesions. Psychiatric: Cooperative. Nonsuicidal Musculoskeletal: No joint swelling or deformity. Normal range of motion. Results CBC & Chem 7: 08/17/17 13:40 08/17/17 17:53 Labs: Abnormal Lab Results - Last 24 Hours (Table) 08/17/17 08/17/17 08/17/17 Range/Units 13:19 13:40 13:40 Neutrophils # 8.7 H (1.3-7.7) k/uL APTT (22.0-30.0) sec VBG pCO2 (37-51) mmHg VBG HCO3 (24-28) mmol/L Potassium 5.5 H (3.5-5.1) mmol/L Carbon Dioxide 18 L (22-30) mmol/L BUN 27 H (9-20) mg/dL Glucose 407 H (74-99) mg/dL POC Glucose (mg/dL) 408 H (75-99) mg/dL Albumin 5.1 H (3.5-5.0) g/dL Urine Protein (Negative) Urine Glucose (UA) (Negative) Urine Ketones (Negative) Hyaline Casts (0-2) /lpf Urine Mucus (None) /hpf 08/17/17 08/17/17 08/17/17 Range/Units 13:40 13:57 14:00 Neutrophils # (1.3-7.7) k/uL APTT 21.9 L (22.0-30.0) sec VBG pCO2 33 L (37-51) mmHg VBG HCO3 18 L (24-28) mmol/L Potassium (3.5-5.1) mmol/L Carbon Dioxide (22-30) mmol/L BUN (9-20) mg/dL Glucose (74-99) mg/dL POC Glucose (mg/dL) (75-99) mg/dL Albumin (3.5-5.0) g/dL Urine Protein 1+ H (Negative) Urine Glucose (UA) 4+ H (Negative) Urine Ketones 4+ H (Negative) Hyaline Casts 3 H (0-2) /lpf Urine Mucus Rare H (None) /hpf 08/17/17 08/17/17 Range/Units 15:50 16:30 Neutrophils # (1.3-7.7) k/uL APTT (22.0-30.0) sec VBG pCO2 (37-51) mmHg VBG HCO3 (24-28) mmol/L Potassium (3.5-5.1) mmol/L Carbon Dioxide (22-30) mmol/L BUN (9-20) mg/dL Glucose (74-99) mg/dL POC Glucose (mg/dL) 335 H 240 H (75-99) mg/dL Albumin (3.5-5.0) g/dL Urine Protein (Negative) Urine Glucose (UA) (Negative) Urine Ketones (Negative) Hyaline Casts (0-2) /lpf Urine Mucus (None) /hpf Thrombosis Risk Factor Assmnt - DVT/VTE Prophylaxis DVT/VTE Prophylaxis: Pharmacologic Prophylaxis ordered Assessment and Plan Assessment: Acute diabetic ketoacidosis likely due to insulin noncompliance Nausea vomiting and abdominal pain secondary to DKA improving now Hyperkalemia due to acidosis Diabetic neuropathy and retinopathy Hypertension currently controlled Depression DVT prophylaxis Plan: Patient will be continued on insulin drip until anion gap closes. Current with the hydration with normal saline and symptomatic management for nausea vomiting and abdominal pain. Will follow closely. every 4 labs. Further recommendations based on the clinical course. Time with Patient: Greater than 30
[2017-08-17 22:15] LABS: Anion Gap 9 mmol/L; Blood Urea Nitrogen 26 mg/dL (9-20); Carbon Dioxide 29 mmol/L (22-30); Chloride 104 mmol/L (98-107); Glucose 75 mg/dL (74-99); Phosphorus 3.7 mg/dL (2.5-4.5); Potassium 4.1 mmol/L (3.5-5.1); Sodium 142 mmol/L (137-145)
[2017-08-18 02:05] LABS: Glucose,Whole Blood 89 mg/dL (75-99)
[2017-08-18] MEDS: D5-0.45% NACL WITH KCL 20MEQ/L 1,000 ML IV SCH ×3 (03:11→16:26)
[2017-08-18 06:17] LABS: Glucose,Whole Blood 49 mg/dL (75-99)
[2017-08-18] MEDS: INSULIN ASPART 100 UNIT/ML 1 ML 10 ML VIAL SQ SCH ×3 (06:31→17:47)
[2017-08-18 06:37] LABS: Glucose,Whole Blood 65 mg/dL (75-99)
[2017-08-18 07:01] LABS: Glucose,Whole Blood 92 mg/dL (75-99)
[2017-08-18 07:08] LABS: Anion Gap 12 mmol/L; Blood Urea Nitrogen 23 mg/dL (9-20); Calcium 9.1 mg/dL (8.4-10.2); Carbon Dioxide 28 mmol/L (22-30); Chloride 105 mmol/L (98-107); Potassium 4.2 mmol/L (3.5-5.1); Sodium 145 mmol/L (137-145)
[2017-08-18 07:20] LABS: Glucose 34 mg/dL (74-99)
[2017-08-18] MEDS ORDERED: MULTIVITAMINS, THERA 1 EACH TAB PO SCH (09:00)
[2017-08-18] MEDS ORDERED: PREGABALIN 100 MG CAP PO SCH (09:00)
[2017-08-18] MEDS ORDERED: LISINOPRIL 2.5 MG TAB PO SCH (09:00)
[2017-08-18 12:33] LABS: Glucose,Whole Blood 206 mg/dL (75-99)
[2017-08-18 12:38] VITALS: RESP 16
[2017-08-18 17:06] VITALS: BP 165/102; PULSE 103; TEMP 97.2
[2017-08-18 17:15] LABS: Glucose,Whole Blood 124 mg/dL (75-99)
--- NOTE | 2017-08-20 00:13 | P.DS ---
Providers Date of admission: 08/17/17 15:11 Expected date of discharge: 08/18/17 Attending physician: Landy Soto [facility]: [facility] Course: Discharge diagnosis Acute diabetic ketoacidosis likely due to insulin noncompliance Nausea vomiting and abdominal pain secondary to DKA improving now Hyperkalemia due to acidosis Diabetic neuropathy and retinopathy Hypertension currently controlled Depression DVT prophylaxis Plan: Patient will be continued on insulin drip until anion gap closes. Current with the hydration with normal saline and symptomatic management for nausea vomiting and abdominal pain. Will follow closely. every 4 labs. Further recommendations based on the clinical course. Patient is a 37 old male with a known history of type 1 diabetes mellitus, diabetic neuropathy and retinopathy, hypertension came to ER with complains of nausea vomiting and unable to keep down food for the past 2 days. Patient has been having nausea and sweating and generalized abdominal pain. Denied any fever or chills otherwise.He does admit to a mild cough and rhinorrhea area no sore throat or shortness of breath. No chest pain. He states his sugars have been running high in the 250s to 300s at home. His [id number] glucose was 400 and triage. He denies any lightheadedness or dizziness. He states that he does occasionally get nausea and vomiting and sometimes it does indicate that he is in DKA however . He denies any diarrhea. States he's also been having a little bit of constipation. No dysuria or hematuria. No other complaints. Patient used to be on insulin pump but currently is taking Lantus and sliding scale due to lack of supplies for the pump. Patient says that he has been taking his insulin dose on daily basis. Patient was found to have CBG greater than 400 along with anion gap 24 and a stone positive. Patient was started on insulin drip. 08/18/2017 Patient is off insulin drip. DKA resolved. Otherwise patient was found have hypoglycemic in the morning. Continue with Lantus and insulin sliding scale. Otherwise patient wants to be discharged today. Since the patient was having hypoglycemia in the morning and was advised to wean the hospital for at least for another 24 hour monitoring and it just a dose of insulin. Patient does not want to stay in hospital and a arias was explained about completion of hypoglycemia including . Patient still wants to go home and left AGAINST MEDICAL ADVICE. Patient is awake and oriented 4 Patient Condition at Discharge: Stable Plan - Discharge Summary Discharge Rx Participant: No New Discharge Prescriptions: No Action Lisinopril [Zestril] 2.5 mg PO DAILY Multivitamin [Men's Multi-Vitamin] 1 tab PO DAILY Tamsulosin [Flomax] 0.4 mg PO BID Insulin Aspart [NovoLOG Flexpen] See Protocol SQ ACHS Insulin Glargine,Hum.rec.anlog [Lantus Solostar] 36 unit SQ HS Escitalopram [Lexapro] 20 mg PO DAILY buPROPion SR [Wellbutrin Sr] 150 mg PO BID Pregabalin [Lyrica] 200 mg PO BID Discharge Medication List Lisinopril [Zestril] 2.5 mg PO DAILY 08/30/15 [History] Multivitamin [Men's Multi-Vitamin] 1 tab PO DAILY 08/30/15 [History] Escitalopram [Lexapro] 20 mg PO DAILY 08/17/17 [History] Insulin Aspart [NovoLOG Flexpen] See Protocol SQ ACHS 08/17/17 [History] Insulin Glargine,Hum.rec.anlog [Lantus Solostar] 36 unit SQ HS 08/17/17 [History ] Pregabalin [Lyrica] 200 mg PO BID 08/17/17 [History] Tamsulosin [Flomax] 0.4 mg PO BID 08/17/17 [History] buPROPion SR [Wellbutrin Sr] 150 mg PO BID 08/17/17 [History] Discharge Disposition: Left Against Medical Advice
== END 2017-08-18 17:42 | disposition left against medical advice (07) | DRG 639 ==
LOC: EC 12:36 → 6SEL 15:11
PROVIDERS: ADMIT Internal Medicine; ATTEND Internal Medicine
DX: E10.10 Type 1 diabetes mellitus with ketoacidosis without coma (principal); E10.649 Type 1 diabetes mellitus with hypoglycemia without coma; E10.40 Type 1 diabetes mellitus with diabetic neuropathy, unspecified; E87.5 Hyperkalemia; E10.319 Type 1 diabetes mellitus with unspecified diabetic retinopathy without macular edema; I10 Essential (primary) hypertension; K59.00 Constipation, unspecified; F32.9 Major depressive disorder, single episode, unspecified; F17.200 Nicotine dependence, unspecified, uncomplicated; T38.3X6A Underdosing of insulin and oral hypoglycemic [antidiabetic] drugs, initial encounter; J34.89 Other specified disorders of nose and nasal sinuses; Z53.21 Procedure and treatment not carried out due to patient leaving prior to being seen by health care provider; Z79.4 Long term (current) use of insulin; Z79.899 Other long term (current) drug therapy; Z89.412 Acquired absence of left great toe; Z89.021 Acquired absence of right finger(s)
CPT/HCPCS: 36415; 74022; 80048; 80051; 80053; 81001; 82009; 82565; 82803; 82947; 83605; 84100; 84520; 85025; 85610; 85730; 87086; 93005; 96361; 96374; 96375; 99285

== ENCOUNTER 2017-10-24 01:36 | Inpatient (IN) | payer OTHER ==
[2017-10-24] MEDS ORDERED: SODIUM CHLORIDE 0.9% 1,000 ML IV STA (01:40)
[2017-10-24] MEDS ORDERED: ONDANSETRON 4 MG/2 ML VIAL IVP STA (01:40)
[2017-10-24] MEDS ORDERED: FAMOTIDINE 20 MG/2 ML VIAL IV STA (01:41)
[2017-10-24] MEDS ORDERED: SODIUM CHLORIDE 0.9% 1,000 ML IV ONE ×2 (01:41→03:05)
[2017-10-24] MEDS ORDERED: INSULIN REGULAR BOLUS (FROM DRIP BAG) IV ONE (01:41)
--- NOTE | 2017-10-24 01:45 | ED ---
General Adult HPI - General Chief complaint: Nausea/Vomiting/Diarrhea Stated complaint: hyperglycemia Time Seen by Provider: 10/24/17 01:37 Source: patient, EMS, RN notes reviewed Mode of arrival: EMS Limitations: no limitations - History of Present Illness Initial comments: Patient is a pleasant 37-year-old male presenting to the emergency department with concerns for hyperglycemia. Patient admits to only using his diabetic medication sporadically. Patient admits to not using it the last few days. Patient does have polyuria and polydipsia. Patient has been nauseated and vomiting. No pain. No fever. Patient does have a history of similar symptoms previously associated with diabetic Medications. Patient is overall a poor historian. - Related Data Home Medications Medication Instructions Recorded Confirmed Lisinopril [Zestril] 2.5 mg PO DAILY 08/30/15 10/24/17 Multivitamin [Men's Multi-Vitamin] 1 tab PO DAILY 08/30/15 10/24/17 Escitalopram [Lexapro] 20 mg PO DAILY 08/17/17 10/24/17 Insulin Aspart [NovoLOG Flexpen] See Protocol SQ ACHS 08/17/17 10/24/17 Insulin Glargine,Hum.rec.anlog 36 unit SQ HS 08/17/17 10/24/17 [Lantus Solostar] Pregabalin [Lyrica] 200 mg PO BID 08/17/17 10/24/17 Tamsulosin [Flomax] 0.4 mg PO BID 08/17/17 10/24/17 buPROPion SR [Wellbutrin Sr] 150 mg PO BID 08/17/17 10/24/17 Allergies Allergy/AdvReac Type Severity Reaction Status Date / Time No Known Allergies Allergy Verified 10/24/17 01:42 Review of Systems ROS Statement: Those systems with pertinent positive or pertinent negative responses have been documented in the HPI. ROS Other: All systems not noted in ROS Statement are negative. Constitutional: Denies: fever Eyes: Denies: eye pain ENT: Denies: ear pain Respiratory: Denies: cough Cardiovascular: Denies: chest pain Endocrine: Reports: fatigue, polydipsia, polyuria Gastrointestinal: Reports: nausea, vomiting Genitourinary: Denies: dysuria Musculoskeletal: Denies: back pain Skin: Denies: rash Neurological: Denies: headache Past Medical History Past Medical History: Diabetes Mellitus, Hypertension Additional Past Medical History / Comment(s): WOUND TO LEFT DORSUM FOOT (closed) , insulin pump, neuropathy History of Any Multi-Drug Resistant Organisms: None Reported Past Surgical History: Orthopedic Surgery Additional Past Surgical History / Comment(s): hand surg.-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 Amputation of L great toe. Surgical I & D left foot dorsum Past Anesthesia/Blood Transfusion Reactions: No Reported Reaction Past Psychological History: Depression Smoking Status: Light tobacco smoker Past Alcohol Use History: Rare Past Drug Use History: None Reported - Past Family History Father Family Medical History: No Reported History Mother Family Medical History: Cancer General Exam Limitations: no limitations General appearance: alert, other (Patient appears uncomfortable. Dry lips.) Head exam: Present: atraumatic Eye exam: Present: normal appearance, PERRL ENT exam: Present: mucous membranes dry Neck exam: Present: normal inspection Respiratory exam: Present: normal lung sounds bilaterally Cardiovascular Exam: Present: tachycardia GI/Abdominal exam: Present: soft. Absent: tenderness Extremities exam: Present: normal inspection Neurological exam: Present: alert, oriented X3, CN II-XII intact. Absent: motor sensory deficit Psychiatric exam: Present: normal affect, normal mood Skin exam: Present: normal color Course Vital Signs 10/24/17 10/24/17 01:37 01:42 Temperature 97.1 F L Pulse Rate 122 H 115 H Respiratory 32 H 30 H Rate Blood Pressure 154/80 171/75 O2 Sat by Pulse 97 97 Oximetry - Reevaluation(s) Reevaluation #1: 10/24/17 03:04 Patient reevaluated and resting comfortably in bed. Patient updated on results and plan. Case was discussed in detail with Dr. Wren, who will admit for hospital call. Consult for Dr. Uribe. Case was discussed in detail with Dr. Pham, who will consult for critical care. Patient has been started on DKA protocol including IV fluids and IV insulin. EKG Findings - EKG Comments: EKG Findings:: Sinus tachycardia 1:15. OK 150. QRS 100. QT 322. QTC 445. Right axis. Incomplete right bundle-branch block. Inferior T wave inversion. Medical Decision Making - Lab Data Result diagrams: 10/24/17 01:44 10/24/17 01:44 Lab Results 10/24/17 10/24/17 10/24/17 Range/Units 01:44 01:44 01:44 WBC 13.8 H (3.8-10.6) k/uL RBC 4.40 (4.30-5.90) m/uL Hgb 13.4 (13.0-17.5) gm/dL Hct 42.1 (39.0-53.0) % MCV 95.7 (80.0-100.0) fL MCH 30.3 (25.0-35.0) pg MCHC 31.7 (31.0-37.0) g/dL RDW 13.4 (11.5-15.5) % Plt Count 417 (150-450) k/uL Neutrophils % 87 % Lymphocytes % 8 % Monocytes % 3 % Eosinophils % 1 % Basophils % 0 % Neutrophils # 12.0 H (1.3-7.7) k/uL Lymphocytes # 1.1 (1.0-4.8) k/uL Monocytes # 0.5 (0-1.0) k/uL Eosinophils # 0.1 (0-0.7) k/uL Basophils # 0.0 (0-0.2) k/uL Hypochromasia Slight PT (9.0-12.0) sec INR (<1.2) APTT (22.0-30.0) sec Sodium 130 L (137-145) mmol/L Potassium 6.2 H* (3.5-5.1) mmol/L Chloride 96 L (98-107) mmol/L Carbon Dioxide <5 L* (22-30) mmol/L Anion Gap mmol/L BUN 28 H (9-20) mg/dL Creatinine 1.20 (0.66-1.25) mg/dL Est GFR (CKD-EPI)AfAm >90 (>60 ml/min/1.73 sqM) Est GFR (CKD-EPI)NonAf 78 (>60 ml/min/1.73 sqM) Glucose 584 H* (74-99) mg/dL Plasma Lactic Acid Lior (0.7-2.0) mmol/L Calcium 8.7 (8.4-10.2) mg/dL Phosphorus 6.1 H (2.5-4.5) mg/dL Magnesium 2.2 (1.6-2.3) mg/dL Total Bilirubin 0.5 (0.2-1.3) mg/dL AST 25 (17-59) U/L ALT 63 (21-72) U/L Alkaline Phosphatase 102 (38-126) U/L Total Creatine Kinase 138 (55-170) U/L CK-MB (CK-2) 4.9 H* (0.0-2.4) ng/mL CK-MB (CK-2) Rel Index 3.6 Troponin I <0.012 (0.000-0.034) ng/mL Total Protein 6.1 L (6.3-8.2) g/dL Albumin 3.8 (3.5-5.0) g/dL Acetone, Qual Positive (Negative) 10/24/17 10/24/17 Range/Units 01:44 01:44 WBC (3.8-10.6) k/uL RBC (4.30-5.90) m/uL Hgb (13.0-17.5) gm/dL Hct (39.0-53.0) % MCV (80.0-100.0) fL MCH (25.0-35.0) pg MCHC (31.0-37.0) g/dL RDW (11.5-15.5) % Plt Count (150-450) k/uL Neutrophils % % Lymphocytes % % Monocytes % % Eosinophils % % Basophils % % Neutrophils # (1.3-7.7) k/uL Lymphocytes # (1.0-4.8) k/uL Monocytes # (0-1.0) k/uL Eosinophils # (0-0.7) k/uL Basophils # (0-0.2) k/uL Hypochromasia PT 10.5 (9.0-12.0) sec INR 1.1 (<1.2) APTT 28.1 (22.0-30.0) sec Sodium (137-145) mmol/L Potassium (3.5-5.1) mmol/L Chloride (98-107) mmol/L Carbon Dioxide (22-30) mmol/L Anion Gap mmol/L BUN (9-20) mg/dL Creatinine (0.66-1.25) mg/dL Est GFR (CKD-EPI)AfAm (>60 ml/min/1.73 sqM) Est GFR (CKD-EPI)NonAf (>60 ml/min/1.73 sqM) Glucose (74-99) mg/dL Plasma Lactic Acid Lior 3.4 H* (0.7-2.0) mmol/L Calcium (8.4-10.2) mg/dL Phosphorus (2.5-4.5) mg/dL Magnesium (1.6-2.3) mg/dL Total Bilirubin (0.2-1.3) mg/dL AST (17-59) U/L ALT (21-72) U/L Alkaline Phosphatase (38-126) U/L Total Creatine Kinase (55-170) U/L CK-MB (CK-2) (0.0-2.4) ng/mL CK-MB (CK-2) Rel Index Troponin I (0.000-0.034) ng/mL Total Protein (6.3-8.2) g/dL Albumin (3.5-5.0) g/dL Acetone, Qual (Negative) - Radiology Data Radiology results: image reviewed (Chest x-ray shows no acute process) Critical Care Time Critical Care Time: Yes Total Critical Care Time: 32 Disposition Clinical Impression: DKA (diabetic ketoacidoses) Disposition: ADMITTED IP TO THIS [facility] Condition: Serious Referrals: None,Stated [Primary Care Provider] - 1-2 days Decision Time: 03:05
[2017-10-24 01:55] LABS: Basophils % (A) 0 %; Eosinophils # (A) 0.1 k/uL (0-0.7); Eosinophils % (A) 1 %; HCT 42.1 % (39.0-53.0); HGB 13.4 gm/dL (13.0-17.5); Hypochromasia Slight; Lymphocytes # (A) 1.1 k/uL (1.0-4.8); Lymphocytes % (A) 8 %; MCH 30.3 pg (25.0-35.0); MCHC 31.7 g/dL (31.0-37.0); MCV 95.7 fL (80.0-100.0); Mean Platelet Volume 7.4; Monocytes # (A) 0.5 k/uL (0-1.0); Monocytes % (A) 3 %; Neutrophils % (A) 87 %; Platelet Count 417 k/uL (150-450); RDW 13.4 % (11.5-15.5); WBC 13.8 k/uL (3.8-10.6)
[2017-10-24 02:05] LABS: ALT 63 U/L (21-72); AST 25 U/L (17-59); Albumin 3.8 g/dL (3.5-5.0); Alkaline Phosphatase 102 U/L (38-126); Blood Urea Nitrogen 28 mg/dL (9-20); Calcium 8.7 mg/dL (8.4-10.2); Chloride 96 mmol/L (98-107); Magnesium 2.2 mg/dL (1.6-2.3); Phosphorus 6.1 mg/dL (2.5-4.5); Sodium 130 mmol/L (137-145); Total Bilirubin 0.5 mg/dL (0.2-1.3); Total Protein 6.1 g/dL (6.3-8.2)
[2017-10-24 02:08] LABS: INR 1.1 (<1.2); Partial Thromboplastin Time 28.1 sec (22.0-30.0); Prothrombin Time 10.5 sec (9.0-12.0)
[2017-10-24 02:16] LABS: Creatine Kinase 138 U/L (55-170); Glucose 584 mg/dL (74-99)
[2017-10-24 02:17] LABS: Carbon Dioxide <5 mmol/L (22-30); Potassium 6.2 mmol/L (3.5-5.1)
[2017-10-24] MEDS: INSULIN REGULAR 100 UNIT in SODIUM CHLORIDE 0.9% 100 ML IV SCH ×2 (02:17→17:03)
--- NOTE | 2017-10-24 02:23 | XR ---
EXAMINATION TYPE: XR chest 1V portable DATE OF EXAM: 10/24/2017 COMPARISON: NONE HISTORY: Chest pain TECHNIQUE: Single frontal view of the chest is obtained. FINDINGS: Heart and mediastinum are normal. Lungs are clear. Diaphragm is normal. Bony thorax appear s normal. IMPRESSION: Normal chest
[2017-10-24 02:29] LABS: Creatine Kinase MB 4.9 ng/mL (0.0-2.4); Troponin I <0.012 ng/mL (0.000-0.034)
[2017-10-24 03:17] LABS: Glucose,Whole Blood >600 mg/dL (75-99)
[2017-10-24] MEDS: SODIUM CHLORIDE 0.9% 1,000 ML IV SCH ×4 (03:19→22:22)
[2017-10-24 03:56] LABS: Glucose,Whole Blood 442 mg/dL (75-99)
[2017-10-24 04:33] LABS: Glucose,Whole Blood 349 mg/dL (75-99)
[2017-10-24 04:35] LABS: Blood Urea Nitrogen 29 mg/dL (9-20); Calcium 8.2 mg/dL (8.4-10.2); Chloride 101 mmol/L (98-107); Glucose 422 mg/dL (74-99); Phosphorus 4.6 mg/dL (2.5-4.5); Sodium 134 mmol/L (137-145)
[2017-10-24 04:36] LABS: Potassium 4.9 mmol/L (3.5-5.1)
[2017-10-24 04:38] LABS: Carbon Dioxide <5 mmol/L (22-30)
[2017-10-24 05:05] LABS: Glucose,Whole Blood 354 mg/dL (75-99)
[2017-10-24] MEDS: D5-0.45% NACL WITH KCL 20MEQ/L 1,000 ML IV SCH ×4 (06:00→22:17)
[2017-10-24 06:06] LABS: Glucose,Whole Blood 278 mg/dL (75-99)
[2017-10-24] MEDS ORDERED: Potassium Replacement Protocol 1 EACH MISC MISCELLANE PRN (06:46)
[2017-10-24] MEDS ORDERED: Magnesium Replacement Protocol 1 EACH MISC MISCELLANE PRN (06:46)
[2017-10-24 07:03] LABS: Glucose,Whole Blood 278 mg/dL (75-99)
--- NOTE | 2017-10-24 07:07 | P.HPIM ---
History of Present Illness H&P Date: 10/24/17 Chief Complaint: hyperglycemia 37-year-old male with past medical history of diabetes mellitus, and hypertension History and information is obtained by reviewing medical records and electronic charts, patient currently in the ICU and very lethargic unable to provide any meaningful history. Seems like when he presented to the ED he had concerns regarding hyperglycemia, he was later found to have diabetic ketoacidosis. In the ED he denied any fevers or chills denies any chest pain or trouble breathing denies any urinary changes. There was no suspicion for any focus of infection. He reported to the ED doctor that he only takes his diabetes regimen sporadically and that he didn't take anything over the past few days. I saw the patient in the ICU who was lethargic but easily arousable however drifts back to sleeping immediately refusing to give any history as he feels very tired and sleepy but he is following simple commands. Case discussed with ICU nurse, who ordered to transition the patient to D5.45 fluids as sugars are trending down and were currently waiting for updated set of labs Review of Systems Unable to obtain meaningful review of systems due to patient mental status Past Medical History Past Medical History: Diabetes Mellitus, Hypertension Additional Past Medical History / Comment(s): WOUND TO LEFT DORSUM FOOT (closed) , insulin pump, neuropathy History of Any Multi-Drug Resistant Organisms: None Reported Past Surgical History: Orthopedic Surgery Additional Past Surgical History / Comment(s): hand surg.-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 Amputation of L great toe. Surgical I & D left foot dorsum Past Anesthesia/Blood Transfusion Reactions: No Reported Reaction Past Psychological History: Depression Smoking Status: Light tobacco smoker Past Alcohol Use History: Rare Additional Past Alcohol Use History / Comment(s): pt states he smokes 4 to 5 cigs a day but is using chantix to quit. He denies any medical marijuana, marijuana, street drug use. He is currently living at home with his . 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 There is a dog and a rabbit in the home. No service. No recent travels. Past Drug Use History: None Reported Additional Drug Use History / Comment(s): smokes 1-2 daily - Past Family History Father Family Medical History: No Reported History Mother Family Medical History: Cancer Medications and Allergies Home Medications and Allergies Comment(s): Unable to review at this time Home Medications Medication Instructions Recorded Confirmed Type Lisinopril [Zestril] 2.5 mg PO DAILY 08/30/15 10/24/17 History Multivitamin [Men's Multi-Vitamin] 1 tab PO DAILY 08/30/15 10/24/17 History Escitalopram [Lexapro] 20 mg PO DAILY 08/17/17 10/24/17 History Insulin Aspart [NovoLOG Flexpen] See Protocol SQ ACHS 08/17/17 10/24/17 History Insulin Glargine,Hum.rec.anlog 36 unit SQ HS 08/17/17 10/24/17 History [Lantus Solostar] Pregabalin [Lyrica] 200 mg PO BID 08/17/17 10/24/17 History Tamsulosin [Flomax] 0.4 mg PO BID 08/17/17 10/24/17 History buPROPion SR [Wellbutrin Sr] 150 mg PO BID 08/17/17 10/24/17 History Allergies Allergy/AdvReac Type Severity Reaction Status Date / Time No Known Allergies Allergy Verified 10/24/17 01:42 Physical Exam Vitals: Vital Signs Temp Pulse Resp BP Pulse Ox 10/24/17 06:00 104 H 15 150/89 98 10/24/17 05:00 108 H 16 151/87 99 10/24/17 04:00 118 H 20 165/89 100 10/24/17 03:49 97.4 F L 119 H 20 165/89 100 10/24/17 03:16 117 H 30 H 165/75 100 10/24/17 01:42 115 H 30 H 171/75 97 10/24/17 01:37 97.1 F L 122 H 32 H 154/80 97 Intake and Output 10/23/17 10/23/17 10/24/17 14:59 22:59 06:59 Intake Total 368.661 Balance 368.661 Intake: IV 350 D5-0.45% NaCl with KCl 150 20Meq/l 1,000 ml @ 150 mls/hr IV .[id number] [facility] [place] Rx# :[id number] Sodium Chloride 0.9% 1, 200 000 ml @ 200 mls/hr IV . Q5H [facility] Rx#:[id number] Intake, IV Titration 18.661 Amount Insulin Regular 100 unit 18.661 In Sodium Chloride 0.9% 100 ml @ 0.1 UNITS/KG/HR 6.49 mls/hr IV .[id number] [facility] Rx#:[id number] Other: Weight 69.8 kg Constitutional: No acute distress, lethargic, oxygen through nasal cannula Eyes: Anicteric sclerae, moist conjunctiva, Pupils equal round reactive to light ENMT: NC/AT Oropharynx clear, no erythema, exudates Neck: Supple, FROM, no masses, or JVD No carotid bruits No thyromegaly Lungs: Clear to auscultation Clear to percussion Normal respiratory effort, no accessory muscle use Cardiovascular: Heart regular in rate and rhythm, No murmurs, gallops, or rubs No peripheral edema Abdominal: Soft Nontender, no guarding, rebound or rigidity Abdomen moving with respiration Normoactive bowel sounds No hepatomegaly, No splenomegaly No palpable mass No abdominal wall hernia noted Skin: Normal temperature, tone, texture, turgor No induration No subcutaneous nodules No rash, lesions No ulcers Extremities: No digital cyanosis No clubbing Pedal pulses intact and symmetrical Radial pulses intact and symmetrical No calf tenderness Patient missing part of his right middle finger, missing big toe of left foot Psychiatric: Lethargic, arousable but drifts back to sleep immediately without stimulation. Following simple commands Neuro could not appropriately assess strength and sensation as patient very lethargic unable to cooperate with full neurologic examination. However he is following simple commands Lymphatics: no palpable cervical or supraclavicular , or inguinal lymph nodes Results CBC & Chem 7: 10/24/17 01:44 10/24/17 04:05 Labs: Abnormal Lab Results - Last 24 Hours (Table) 10/24/17 10/24/17 10/24/17 Range/Units 01:44 01:44 01:44 WBC 13.8 H (3.8-10.6) k/uL Neutrophils # 12.0 H (1.3-7.7) k/uL Sodium 130 L (137-145) mmol/L Potassium 6.2 H* (3.5-5.1) mmol/L Chloride 96 L (98-107) mmol/L Carbon Dioxide <5 L* (22-30) mmol/L BUN 28 H (9-20) mg/dL Glucose 584 H* (74-99) mg/dL POC Glucose (mg/dL) (75-99) mg/dL Plasma Lactic Acid Lior (0.7-2.0) mmol/L Calcium (8.4-10.2) mg/dL Phosphorus 6.1 H (2.5-4.5) mg/dL CK-MB (CK-2) 4.9 H* (0.0-2.4) ng/mL Total Protein 6.1 L (6.3-8.2) g/dL 10/24/17 10/24/17 10/24/17 Range/Units 01:44 03:06 03:54 WBC (3.8-10.6) k/uL Neutrophils # (1.3-7.7) k/uL Sodium (137-145) mmol/L Potassium (3.5-5.1) mmol/L Chloride (98-107) mmol/L Carbon Dioxide (22-30) mmol/L BUN (9-20) mg/dL Glucose (74-99) mg/dL POC Glucose (mg/dL) >600 H 442 H (75-99) mg/dL Plasma Lactic Acid Lior 3.4 H* (0.7-2.0) mmol/L Calcium (8.4-10.2) mg/dL Phosphorus (2.5-4.5) mg/dL CK-MB (CK-2) (0.0-2.4) ng/mL Total Protein (6.3-8.2) g/dL 10/24/17 10/24/17 10/24/17 Range/Units 04:05 04:30 05:03 WBC (3.8-10.6) k/uL Neutrophils # (1.3-7.7) k/uL Sodium 134 L (137-145) mmol/L Potassium (3.5-5.1) mmol/L Chloride (98-107) mmol/L Carbon Dioxide <5 L* (22-30) mmol/L BUN 29 H (9-20) mg/dL Glucose 422 H (74-99) mg/dL POC Glucose (mg/dL) 349 H 354 H (75-99) mg/dL Plasma Lactic Acid Lior (0.7-2.0) mmol/L Calcium 8.2 L (8.4-10.2) mg/dL Phosphorus 4.6 H (2.5-4.5) mg/dL CK-MB (CK-2) (0.0-2.4) ng/mL Total Protein (6.3-8.2) g/dL 10/24/17 Range/Units 06:04 WBC (3.8-10.6) k/uL Neutrophils # (1.3-7.7) k/uL Sodium (137-145) mmol/L Potassium (3.5-5.1) mmol/L Chloride (98-107) mmol/L Carbon Dioxide (22-30) mmol/L BUN (9-20) mg/dL Glucose (74-99) mg/dL POC Glucose (mg/dL) 278 H (75-99) mg/dL Plasma Lactic Acid Lior (0.7-2.0) mmol/L Calcium (8.4-10.2) mg/dL Phosphorus (2.5-4.5) mg/dL CK-MB (CK-2) (0.0-2.4) ng/mL Total Protein (6.3-8.2) g/dL Assessment and Plan Assessment: 37-year-old male with history of diabetes and hypertension noncompliant with outpatient therapy presented with hyperglycemia was found to be in severe DKA, admitted to the ICU due to severe acidosis for further management Plan: #Acute metabolic encephalopathy secondary to DKA #DKA secondary to noncompliance #Severe metabolic acidosis secondary to ketosis Currently patient being managed in the ICU DKA protocol Insulin infusion Aggressive IV fluid hydration Close monitoring of electrolytes and blood sugar Nothing by mouth Patient will require dietary consultation and education regarding diabetes utility service worker to assess home situation for needs of insurance and prescriptions #Hypertension slightly elevated Continue lisinopril #Hyperkalemia due to severe acidosis This is improving already #Mild leukocytosis most likely reactive secondary to hyperglycemia DVT prophylaxis Heparin subcu 3 times a day Medication reconciliation could not be performed at this time due to patient mental status will await improvement in patient's overall condition Currently Wellbutrin and Zoloft on hold Surrogate decision-maker: Patient unable to provide info CODE STATUS: Full code by default Discussed with: Patient, ER, RN Anticipated discharge: 48-[address]: Pending clinical progress A total of 55 minutes was spent on the care of this complex patient more than 50 % of the time was spent in counseling and care coordination.
[2017-10-24 08:07] LABS: Glucose,Whole Blood 257 mg/dL (75-99)
[2017-10-24 08:09] LABS: Glucose,Whole Blood >600 mg/dL (75-99)
[2017-10-24 08:38] LABS: ALT 56 U/L (21-72); AST 24 U/L (17-59); Albumin 3.6 g/dL (3.5-5.0); Alkaline Phosphatase 85 U/L (38-126); Anion Gap 22 mmol/L; Blood Urea Nitrogen 26 mg/dL (9-20); Calcium 8.3 mg/dL (8.4-10.2); Chloride 106 mmol/L (98-107); Glucose 258 mg/dL (74-99); Magnesium 2.2 mg/dL (1.6-2.3); Phosphorus 2.7 mg/dL (2.5-4.5); Potassium 4.7 mmol/L (3.5-5.1); Sodium 136 mmol/L (137-145); Total Bilirubin 0.5 mg/dL (0.2-1.3); Total Protein 5.9 g/dL (6.3-8.2)
[2017-10-24 08:51] LABS: Carbon Dioxide 8 mmol/L (22-30)
[2017-10-24] MEDS ORDERED: PREGABALIN 100 MG CAP PO SCH (09:00)
[2017-10-24 09:01] LABS: Glucose,Whole Blood 238 mg/dL (75-99)
[2017-10-24] MEDS: LISINOPRIL 2.5 MG TAB PO SCH (09:03)
[2017-10-24] MEDS: TAMSULOSIN 0.4 MG CAP.ER.24H PO SCH ×2 (09:03→22:17)
[2017-10-24 10:00] LABS: Glucose,Whole Blood 264 mg/dL (75-99)
--- NOTE | 2017-10-24 10:48 | P.CNPUL ---
History of Present Illness Consult date: 10/24/17 Chief complaint: DKA, hyperglycemia History of present illness: It is a 37-year-old male patient who presented emergency department because of a elevated blood sugar and immediately was diagnosed having acute diabetic ketoacidosis. This was attributed to noncompliance. The patient was in the hospital in July for the same. Apparently his supplies on his insulin pump ran out and the patient has been off treatment. The patient presented to the hospital dehydrated, initial blood sugar was above 600, initial bicarb level was less than 5, initial potassium level was at 6.2. Immediately the patient was given IV fluids a total of 2 L and the patient was started on insulin drip which is currently running at 8 units an hour. He was given also a bolus. The patient's most recent blood sugar is down to 267. The patient is showing improvement in his bicarb level which is up to 8. His most recent anion gap is at 22. Clinically is doing better. His more alert and awake knowing that he was very lethargic at time of his admission. No chest pain. No cough or sputum production. No headaches. No dysuria frequency or urgency. No open wounds or sores. He is producing adequate amount of urine output. He has no nausea. No vomiting. No abdominal pain. He is conversing and talking. He is sleepy in general. His mentation is gradually improving. He is known to have type 1 diabetes mellitus. He is known to have diabetic neuropathy and retinopathy along with hypertension. He has been also treated for a diabetic wound in his left foot 3 years back and he has recovered from that. He has history of depression. Review of Systems ROS unobtainable: due to mental status Past Medical History Past Medical History: Diabetes Mellitus, Hypertension Additional Past Medical History / Comment(s): Diabetes mellitus type 1, diabetic neuropathy, diabetic retinopathy, hypertension, depression, history of a wound in the left foot dorsum which has recovered and the patient has a previous indication the left greater toe and left middle finger History of Any Multi-Drug Resistant Organisms: None Reported Past Surgical History: Orthopedic Surgery Additional Past Surgical History / Comment(s): hand surg.-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 Amputation of L great toe. Surgical I & D left foot dorsum Past Anesthesia/Blood Transfusion Reactions: No Reported Reaction Past Psychological History: Depression Smoking Status: Light tobacco smoker Past Alcohol Use History: Rare Additional Past Alcohol Use History / Comment(s): pt states he smokes 4 to 5 cigs a day but is using chantix to quit. He denies any medical marijuana, marijuana, street drug use. He is currently living at home with his . 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 There is a dog and a rabbit in the home. No service. No recent travels. Past Drug Use History: None Reported Additional Drug Use History / Comment(s): smokes 1-2 daily - Past Family History Father Family Medical History: No Reported History Mother Family Medical History: Cancer Medications and Allergies Home Medications Medication Instructions Recorded Confirmed Type Lisinopril [Zestril] 2.5 mg PO DAILY 08/30/15 10/24/17 History Multivitamin [Men's Multi-Vitamin] 1 tab PO DAILY 08/30/15 10/24/17 History Escitalopram [Lexapro] 20 mg PO DAILY 08/17/17 10/24/17 History Insulin Aspart [NovoLOG Flexpen] See Protocol SQ ACHS 08/17/17 10/24/17 History Insulin Glargine,Hum.rec.anlog 36 unit SQ HS 08/17/17 10/24/17 History [Lantus Solostar] Pregabalin [Lyrica] 200 mg PO BID 08/17/17 10/24/17 History Tamsulosin [Flomax] 0.4 mg PO BID 08/17/17 10/24/17 History buPROPion SR [Wellbutrin Sr] 150 mg PO BID 08/17/17 10/24/17 History Allergies Allergy/AdvReac Type Severity Reaction Status Date / Time No Known Allergies Allergy Verified 10/24/17 01:42 Physical Exam Vitals: Vital Signs Temp Pulse Resp BP Pulse Ox 10/24/17 10:00 101 H 12 150/78 99 10/24/17 09:00 100 10 L 151/79 98 10/24/17 08:00 97.7 F 115 H 15 140/82 100 10/24/17 07:00 102 H 14 139/79 99 10/24/17 06:00 104 H 15 150/89 98 10/24/17 05:00 108 H 16 151/87 99 10/24/17 04:00 118 H 20 165/89 100 10/24/17 03:49 97.4 F L 119 H 20 165/89 100 10/24/17 03:16 117 H 30 H 165/75 100 10/24/17 01:42 115 H 30 H 171/75 97 10/24/17 01:37 97.1 F L 122 H 32 H 154/80 97 Intake and Output 10/23/17 10/24/17 10/24/17 22:59 06:59 14:59 Intake Total 368.661 629.116 Output Total 1000 Balance 368.661 -370.884 Intake: IV 350 600 D5-0.45% NaCl with KCl 150 600 20Meq/l 1,000 ml @ 150 mls/hr IV .[id number] [facility] Rx# :[id number] Sodium Chloride 0.9% 1, 200 000 ml @ 200 mls/hr IV . Q5H [facility] Rx#:[id number] Intake, IV Titration 18.661 29.116 Amount Insulin Regular 100 unit 18.661 29.116 In Sodium Chloride 0.9% 100 ml @ 0.1 UNITS/KG/HR 6.49 mls/hr IV .[id number] R[facility]ARD Rx#:[id number] Output: Urine 1000 Other: # Voids 350 Weight 69.8 kg Gen. appearance the patient is calm, comfortable likely distress.Head exam was generally normal. There was no scleral icterus or corneal arcus. Mucous membranes were moist.Neck was supple and without jugular venous distension, thyromegaly, or carotid bruits. Carotids were easily palpable bilaterally. There was no adenopathy.Lungs were clear to auscultation and percussion, and with normal diaphragmatic excursion. No wheezes or rales were noted. Cardiac exam revealed the PMI to be normally situated and sized. The rhythm was regular and no extrasystoles were noted during several minutes of auscultation. The first and second heart sounds were normal and physiologic splitting of the second heart sound was noted. There were no murmurs, rubs, clicks, or gallops.Abdominal exam revealed normal bowel sounds. The abdomen was soft, non- tender, and without masses, organomegaly, or appreciable enlargement of the abdominal aorta. Extremities are showing missing parts in his right middle finger and missing big toe on the left foot. Otherwise he has adequate pulses and the patient has been neurovascularly intact.Examination of the skin revealed no evidence of significant rashes, suspicious appearing nevi or other concerning lesions. Neurologically the patient is awake and he is following commands if he is sleepy. His altered mentation gradually improving. No focal neurological deficit at this point. He remains somewhat sleepy and lethargic. Results - Laboratory Findings CBC and BMP: 10/24/17 01:44 10/24/17 08:04 PT/INR, D-dimer PT 10.5 sec (9.0-12.0) 10/24/17 01:44 INR 1.1 (<1.2) 10/24/17 01:44 Abnormal lab findings: Abnormal Labs 10/24/17 10/24/17 10/24/17 01:39 01:44 01:44 WBC Neutrophils # Sodium 130 L Potassium 6.2 H* Chloride 96 L Carbon Dioxide <5 L* BUN 28 H Glucose 584 H* POC Glucose (mg/dL) >600 H Plasma Lactic Acid Lior Calcium Phosphorus 6.1 H CK-MB (CK-2) 4.9 H* Total Protein 6.1 L 10/24/17 10/24/17 10/24/17 01:44 01:44 03:06 WBC 13.8 H Neutrophils # 12.0 H Sodium Potassium Chloride Carbon Dioxide BUN Glucose POC Glucose (mg/dL) >600 H Plasma Lactic Acid Lior 3.4 H* Calcium Phosphorus CK-MB (CK-2) Total Protein 10/24/17 10/24/17 10/24/17 03:54 04:05 04:30 WBC Neutrophils # Sodium 134 L Potassium Chloride Carbon Dioxide <5 L* BUN 29 H Glucose 422 H POC Glucose (mg/dL) 442 H 349 H Plasma Lactic Acid Lior Calcium 8.2 L Phosphorus 4.6 H CK-MB (CK-2) Total Protein 10/24/17 10/24/17 10/24/17 05:03 06:04 07:02 WBC Neutrophils # Sodium Potassium Chloride Carbon Dioxide BUN Glucose POC Glucose (mg/dL) 354 H 278 H 278 H Plasma Lactic Acid Lior Calcium Phosphorus CK-MB (CK-2) Total Protein 10/24/17 10/24/17 10/24/17 08:04 08:05 09:00 WBC Neutrophils # Sodium 136 L Potassium Chloride Carbon Dioxide 8 L* BUN 26 H Glucose 258 H POC Glucose (mg/dL) 257 H 238 H Plasma Lactic Acid Lior Calcium 8.3 L Phosphorus CK-MB (CK-2) Total Protein 5.9 L 10/24/17 09:59 WBC Neutrophils # Sodium Potassium Chloride Carbon Dioxide BUN Glucose POC Glucose (mg/dL) 264 H Plasma Lactic Acid Lior Calcium Phosphorus CK-MB (CK-2) Total Protein - Diagnostic Findings Chest x-ray: image reviewed Assessment and Plan Plan: Assessment 1 acute diabetic ketoacidosis with severe anion gap metabolic acidosis 2 altered mentation secondary to above 3 diabetes mellitus type 1 with poor Devante control and the patient has been hospitalized in the past for the same 4 diabetic peripheral neuropathy and retinopathy 5 depression 6 BPH 7 previous amputations of discussed Plan We'll continue the treatment of DKA with D5 half-normal at the rate of 150 mL an hour in addition to insulin drip. Electrolytes are being monitored every 4 hours. Monitor the anion gap. Neurologically is improving. Not completely awake knowing that he still has some acidosis. The patient will have a urinalysis sent. We'll check urine drug screen. Is not clear to me whether the patient was using a insulin pump or Lantus solo*knowing that at time of discharge the patient was given Lantus back in July 2017. This is something that needs to be investigated once the patient is more arousable and awake. We' ll continue to follow and make further recommendation meanwhile the patient will be kept in ICU.
[2017-10-24 11:06] LABS: Appearance,Urine Clear (Clear); Bacteria,Urine Rare /hpf; Bilirubin,Urine Negative (Negative); Blood,Urine Small (Negative); Color,Urine Light Yellow; Glucose,Urine (UA) 4+ (Negative); Leukocyte Esterase,Urine Negative (Negative); Mucus,Urine Rare /hpf; Nitrite,Urine Negative (Negative); Protein,Urine 1+ (Negative); Specific Gravity,Urine 1.018 (1.001-1.035); Urobilinogen,Urine <2.0 mg/dL (<2.0); WBC,Urine 1 /hpf (0-5)
[2017-10-24 11:12] LABS: Glucose,Whole Blood 182 mg/dL (75-99)
[2017-10-24 11:22] LABS: Ketones,Urine 4+ (Negative)
[2017-10-24 11:58] LABS: Glucose,Whole Blood 225 mg/dL (75-99)
[2017-10-24 12:01] LABS: Amphetamine Screen,Urine Not Detected (NotDetected); Barbiturate Screen,Urine Not Detected (NotDetected); Benzodiazepines Screen,Urine Not Detected (NotDetected); Cocaine Screen,Urine Not Detected (NotDetected); Methadone Screen, Urine Not Detected (NotDetected); Opiate Screen,Urine Not Detected (NotDetected); Oxycodone Screen, Urine Not Detected (NotDetected); Phencyclidine Screen,Urine Not Detected (NotDetected); Tricyclic Antidepressant,Urine Not Detected (NotDetected); Urn Cannabinoid Scrn Not Detected (NotDetected)
[2017-10-24 12:45] LABS: Anion Gap 12 mmol/L; Blood Urea Nitrogen 23 mg/dL (9-20); Carbon Dioxide 18 mmol/L (22-30); Chloride 107 mmol/L (98-107); Glucose 193 mg/dL (74-99); Potassium 4.1 mmol/L (3.5-5.1); Sodium 137 mmol/L (137-145)
[2017-10-24 13:11] LABS: Glucose,Whole Blood 175 mg/dL (75-99)
--- NOTE | 2017-10-24 14:06 | P.PN ---
Progress Note - Text Progress Note Date: 10/24/17 (delayed charting patient seen at 8 am) Hospitalist Interval Note Patient is a 37-year-old male to past medical history of diabetes, hypertension, and tobacco abuse who presented to the emergency department with complaints of hyperglycemia. In the ER he underwent an extensive evaluation. On arrival he was found to be tachycardic with a pulse of 122 and hypertensive blood pressure 154/80 that went up to 171/75. He was also tachypneic with a respiratory rate of 32. Laboratory analysis demonstrated severe DKA with an undetectable bicarb level, his blood sugars 584. In the ER he admitted to only taking his diabetic regimen sporadically and not taking anything for the last few days. He was given IV fluids and started on an insulin drip. He was admitted to the ICU. His blood sugar came down quickly and he was transitioned to D5 half normal with potassium for his fluids. He was maintained on insulin drip. He did have some feelings of incomplete bladder emptying necessitating Stauffer catheter placement. Despite improvement in his labs he did remain lethargic throughout the day on 10/24. Patient seen and examined at bedside. He complains of not being able to urinate. He denies chest pain, SOB, or nausea. States he last episode of DKA was 2 weeks ago and was Here, however his last admission here was 2 months ago. States he has been taking his insulin as prescribed. Vital signs reviewed General: ill appearing, mild distress, appears at stated age Derm: warm, dry Head: atraumatic, normocephalic, symmetric Eyes: EOMI, no lid lag, anicteric sclera Mouth: no lip lesion, mucus membranes dry Cardiovascular: S1S2 reg, no murmur, positive posterior tibial pulse bilateral, Lungs: CTA bilateral, no rhonchi, no rales , no accessory muscle use Abdominal: soft, nontender to palpation, no guarding, no appreciable organomegaly Ext: no gross muscle atrophy, no edema, no contractures Psych: Alert, oriented, anxious, was lethargic per nursing earlier. Assessment/Plan: DKA -Continue with Accu-Cheks, DKA protocol with insulin drip and IV fluids currently on insulin drip and D5 half-normal with potassium, serial electrolytes -Await hemoglobin A1c -Replace potassium, magnesium, and phosphorus as needed -staff development educator consult Toxic metabolic encephalopathy secondary to above -Treatment as above Hypertension, currently controlled -Continue with lisinopril -Resume metoprolol -Follow blood pressures Neuropathy -Hold Lyrica today secondary to sedation Suspected BPH -Continue outpatient Flomax DVT prophylaxis: Heparin Discussed with: Admitting physician, Nursing, and patient Anticipated discharge: 24-[address]: home A total of 35 minutes was spent on the care of this complex patient more than 50 % of the time was spent in counseling and care coordination. This is an update note for patient , for full note on 10/24 see H and P. There is no charge associated with this note.
[2017-10-24 14:08] LABS: Glucose,Whole Blood 197 mg/dL (75-99)
[2017-10-24 14:20] LABS: Hemoglobin A1C 11.9 % (4.0-6.0)
[2017-10-24 15:02] VITALS: BMI 21.4
[2017-10-24 15:07] LABS: Glucose,Whole Blood 153 mg/dL (75-99)
[2017-10-24 16:13] LABS: Glucose,Whole Blood 155 mg/dL (75-99)
[2017-10-24 17:00] LABS: Glucose,Whole Blood 145 mg/dL (75-99)
[2017-10-24] MEDS: HEPARIN SODIUM,PORCINE 5,000 UNIT/ML 1 ML VIAL SQ SCH (17:06)
[2017-10-24 17:24] LABS: ALT 50 U/L (21-72); AST 21 U/L (17-59); Albumin 2.9 g/dL (3.5-5.0); Anion Gap 10 mmol/L; Blood Urea Nitrogen 21 mg/dL (9-20); Calcium 8.1 mg/dL (8.4-10.2); Carbon Dioxide 20 mmol/L (22-30); Chloride 106 mmol/L (98-107); Glucose 143 mg/dL (74-99); Magnesium 2.1 mg/dL (1.6-2.3); Phosphorus 2.1 mg/dL (2.5-4.5); Sodium 136 mmol/L (137-145); Total Bilirubin 0.5 mg/dL (0.2-1.3); Total Protein 5.2 g/dL (6.3-8.2)
[2017-10-24 17:57] LABS: Alkaline Phosphatase 75 U/L (38-126)
[2017-10-24 18:01] LABS: Glucose,Whole Blood 148 mg/dL (75-99)
[2017-10-24 19:07] LABS: Glucose,Whole Blood 142 mg/dL (75-99)
[2017-10-24 20:55] LABS: Glucose,Whole Blood 169 mg/dL (75-99)
[2017-10-24] MEDS: METOPROLOL TARTRATE 25 MG TAB PO SCH (22:17)
[2017-10-24 23:19] LABS: Glucose,Whole Blood 178 mg/dL (75-99)
[2017-10-25] MEDS: HEPARIN SODIUM,PORCINE 5,000 UNIT/ML 1 ML VIAL SQ SCH ×4 (00:10→23:40)
[2017-10-25 00:18] LABS: Glucose,Whole Blood 173 mg/dL (75-99)
[2017-10-25 00:46] LABS: ALT 48 U/L (21-72); AST 23 U/L (17-59); Albumin 2.9 g/dL (3.5-5.0); Alkaline Phosphatase 72 U/L (38-126); Anion Gap 10 mmol/L; Blood Urea Nitrogen 17 mg/dL (9-20); Calcium 8.1 mg/dL (8.4-10.2); Carbon Dioxide 21 mmol/L (22-30); Chloride 105 mmol/L (98-107); Glucose 188 mg/dL (74-99); Magnesium 2.2 mg/dL (1.6-2.3); Phosphorus 1.8 mg/dL (2.5-4.5); Sodium 136 mmol/L (137-145); Total Bilirubin 0.6 mg/dL (0.2-1.3); Total Protein 5.1 g/dL (6.3-8.2)
[2017-10-25 02:19] LABS: Glucose,Whole Blood 195 mg/dL (75-99)
[2017-10-25] MEDS: SODIUM CHLORIDE 0.9% 1,000 ML IV SCH ×4 (03:57→23:40)
[2017-10-25] MEDS ORDERED: Phosphorus Replacement Protoco 1 EACH MISC MISCELLANE PRN (04:23)
[2017-10-25 04:38] LABS: Glucose,Whole Blood 189 mg/dL (75-99)
[2017-10-25] MEDS: SODIUM PHOSPHATE 10 MMOL in SODIUM CHLORIDE 0.9% 250 ML IVPB SCH ×2 (05:16→07:16)
[2017-10-25] MEDS: D5-0.45% NACL WITH KCL 20MEQ/L 1,000 ML IV SCH (05:16)
[2017-10-25 05:36] LABS: HCT 34.8 % (39.0-53.0); HGB 12.2 gm/dL (13.0-17.5); MCH 30.7 pg (25.0-35.0); MCHC 35.1 g/dL (31.0-37.0); Mean Platelet Volume 6.9; Platelet Count 273 k/uL (150-450); RBC 3.98 m/uL (4.30-5.90); RDW 13.6 % (11.5-15.5); WBC 8.5 k/uL (3.8-10.6)
[2017-10-25 05:44] LABS: MCV 87.6 fL (80.0-100.0)
[2017-10-25 05:45] LABS: Anion Gap 7 mmol/L; Blood Urea Nitrogen 15 mg/dL (9-20); Carbon Dioxide 23 mmol/L (22-30); Chloride 105 mmol/L (98-107); Glucose 192 mg/dL (74-99); Magnesium 2.2 mg/dL (1.6-2.3); Potassium 3.8 mmol/L (3.5-5.1); Sodium 135 mmol/L (137-145)
[2017-10-25 06:44] LABS: Glucose,Whole Blood 213 mg/dL (75-99)
[2017-10-25] MEDS: POTASSIUM CHLORIDE 10 MEQ in WATER FOR INJECTION 1 100ML.BAG IVPB SCH ×2 (08:21→09:57)
[2017-10-25] MEDS: INSULIN REGULAR 100 UNIT in SODIUM CHLORIDE 0.9% 100 ML IV SCH (08:22)
[2017-10-25] MEDS: LISINOPRIL 2.5 MG TAB PO SCH (08:23)
[2017-10-25] MEDS: TAMSULOSIN 0.4 MG CAP.ER.24H PO SCH ×2 (08:23→20:55)
[2017-10-25] MEDS: METOPROLOL TARTRATE 25 MG TAB PO SCH ×2 (08:23→20:55)
[2017-10-25] MEDS ORDERED: DOCUSATE 100 MG CAP PO PRN (09:13)
[2017-10-25] MEDS ORDERED: ONDANSETRON 4 MG/2 ML VIAL IVP PRN (09:13)
[2017-10-25] MEDS ORDERED: CALCIUM CARBONATE 500 MG CHEWABLE PO PRN (09:13)
--- NOTE | 2017-10-25 09:16 | P.PN ---
Subjective Progress Note Date: 10/25/17 Principal diagnosis: altered mentation Patient is a 37-year-old male to past medical history of diabetes, hypertension, and tobacco abuse who presented to the emergency department with complaints of hyperglycemia. In the ER he underwent an extensive evaluation. On arrival he was found to be tachycardic with a pulse of 122 and hypertensive blood pressure 154/80 that went up to 171/75. He was also tachypneic with a respiratory rate of 32. Laboratory analysis demonstrated severe DKA with an undetectable bicarb level, his blood sugars 584. In the ER he admitted to only taking his diabetic regimen sporadically and not taking anything for the last few days. He was given IV fluids and started on an insulin drip. He was admitted to the ICU. His blood sugar came down quickly and he was transitioned to D5 half normal with potassium for his fluids. He was maintained on insulin drip. He did have some feelings of incomplete bladder emptying necessitating Stauffer catheter placement. Despite improvement in his labs he did remain lethargic throughout the day on 10/24. His anion gap closed by the night of . He was maintained on an insulin gtt due to lethargy and not eating. Patient seen and examined at bedside. He is lethargic but awakes to touch. He denies any chest pain, shortness of breath, nausea, vomiting, or abdominal pain. He is alert and oriented 3. He has no other complaints currently. He tells me that he was using Lantus when he wasn't using his home but has not been taking anything in a few days. Objective - Vital Signs Vital signs: Vital Signs Temp 98.1 F 10/25/17 04:00 Pulse 90 10/25/17 07:00 Resp 16 10/25/17 07:00 BP 123/70 10/25/17 07:00 Pulse Ox 96 10/25/17 07:00 Intake & Output 10/24/17 10/25/17 10/25/17 18:59 06:59 18:59 Intake Total 2797.956 5625.567 153.6 Output Total 1680 1060 150 Balance 532.471 6201.567 3.6 Weight 69.8 kg 69.5 kg Intake: IV 1800 2050 150 D5-0.45% NaCl with KCl 1800 1800 150 20Meq/l 1,000 ml @ 150 mls/hr IV .[id number] [facility] Rx# :[id number] Sodium Phosphate 10 mmol 250 In Sodium Chloride 0.9% 250 ml @ 125 mls/hr IVPB Q2H [facility] Rx#:[id number] Intake, IV Titration 84.239 12.567 3.6 Amount Insulin Regular 100 unit 84.239 12.567 3.6 In Sodium Chloride 0.9% 100 ml @ 0.1 UNITS/KG/HR 6.49 mls/hr IV .[id number] [facility] Rx#:[id number] Oral 0 Output: Urine 1680 1060 150 Other: Voiding Method Indwelling Catheter # Voids 350 - Exam General: non toxic, mild distress, appears older than stated age Derm: warm, dry Head: atraumatic, normocephalic, symmetric Eyes: EOMI, no lid lag, anicteric sclera Mouth: no lip lesion, mucus membranes moist Cardiovascular: S1S2 reg, no murmur, positive posterior tibial pulse bilateral, Lungs: CTA bilateral, no rhonchi, no rales , no accessory muscle use Abdominal: soft, nontender to palpation, no guarding, no appreciable organomegaly Ext: no gross muscle atrophy, no edema, no contractures Neuro: CN II-XI grossly intact, no focal neuro deficits Psych: Alert, oriented, lethargic - Labs CBC & Chem 7: 10/25/17 04:36 10/25/17 04:36 Labs: Abnormal Lab Results - Last 24 Hours (Table) 10/24/17 10/24/17 10/24/17 Range/Units 01:44 08:00 09:59 RBC (4.30-5.90) m/uL Hgb (13.0-17.5) gm/dL Hct (39.0-53.0) % Sodium (137-145) mmol/L Carbon Dioxide (22-30) mmol/L BUN (9-20) mg/dL Creatinine (0.66-1.25) mg/dL Glucose (74-99) mg/dL POC Glucose (mg/dL) 264 H (75-99) mg/dL Hemoglobin A1c 11.9 H (4.0-6.0) % Calcium (8.4-10.2) mg/dL Phosphorus (2.5-4.5) mg/dL Total Protein (6.3-8.2) g/dL Albumin (3.5-5.0) g/dL Urine Protein 1+ H (Negative) Urine Glucose (UA) 4+ H (Negative) Urine Ketones 4+ H (Negative) Urine Blood Small H (Negative) Urine Bacteria Rare H (None) /hpf Urine Mucus Rare H (None) /hpf 10/24/17 10/24/17 10/24/17 Range/Units 11:10 11:56 12:09 RBC (4.30-5.90) m/uL Hgb (13.0-17.5) gm/dL Hct (39.0-53.0) % Sodium (137-145) mmol/L Carbon Dioxide 18 L (22-30) mmol/L BUN 23 H (9-20) mg/dL Creatinine (0.66-1.25) mg/dL Glucose 193 H (74-99) mg/dL POC Glucose (mg/dL) 182 H 225 H (75-99) mg/dL Hemoglobin A1c (4.0-6.0) % Calcium (8.4-10.2) mg/dL Phosphorus (2.5-4.5) mg/dL Total Protein (6.3-8.2) g/dL Albumin (3.5-5.0) g/dL Urine Protein (Negative) Urine Glucose (UA) (Negative) Urine Ketones (Negative) Urine Blood (Negative) Urine Bacteria (None) /hpf Urine Mucus (None) /hpf 10/24/17 10/24/17 10/24/17 Range/Units 13:09 14:06 15:05 RBC (4.30-5.90) m/uL Hgb (13.0-17.5) gm/dL Hct (39.0-53.0) % Sodium (137-145) mmol/L Carbon Dioxide (22-30) mmol/L BUN (9-20) mg/dL Creatinine (0.66-1.25) mg/dL Glucose (74-99) mg/dL POC Glucose (mg/dL) 175 H 197 H 153 H (75-99) mg/dL Hemoglobin A1c (4.0-6.0) % Calcium (8.4-10.2) mg/dL Phosphorus (2.5-4.5) mg/dL Total Protein (6.3-8.2) g/dL Albumin (3.5-5.0) g/dL Urine Protein (Negative) Urine Glucose (UA) (Negative) Urine Ketones (Negative) Urine Blood (Negative) Urine Bacteria (None) /hpf Urine Mucus (None) /hpf 10/24/17 10/24/17 10/24/17 Range/Units 16:12 16:34 16:58 RBC (4.30-5.90) m/uL Hgb (13.0-17.5) gm/dL Hct (39.0-53.0) % Sodium 136 L (137-145) mmol/L Carbon Dioxide 20 L (22-30) mmol/L BUN 21 H (9-20) mg/dL Creatinine (0.66-1.25) mg/dL Glucose 143 H (74-99) mg/dL POC Glucose (mg/dL) 155 H 145 H (75-99) mg/dL Hemoglobin A1c (4.0-6.0) % Calcium 8.1 L (8.4-10.2) mg/dL Phosphorus 2.1 L (2.5-4.5) mg/dL Total Protein 5.2 L (6.3-8.2) g/dL Albumin 2.9 L (3.5-5.0) g/dL Urine Protein (Negative) Urine Glucose (UA) (Negative) Urine Ketones (Negative) Urine Blood (Negative) Urine Bacteria (None) /hpf Urine Mucus (None) /hpf 10/24/17 10/24/17 10/24/17 Range/Units 18:00 19:05 20:53 RBC (4.30-5.90) m/uL Hgb (13.0-17.5) gm/dL Hct (39.0-53.0) % Sodium (137-145) mmol/L Carbon Dioxide (22-30) mmol/L BUN (9-20) mg/dL Creatinine (0.66-1.25) mg/dL Glucose (74-99) mg/dL POC Glucose (mg/dL) 148 H 142 H 169 H (75-99) mg/dL Hemoglobin A1c (4.0-6.0) % Calcium (8.4-10.2) mg/dL Phosphorus (2.5-4.5) mg/dL Total Protein (6.3-8.2) g/dL Albumin (3.5-5.0) g/dL Urine Protein (Negative) Urine Glucose (UA) (Negative) Urine Ketones (Negative) Urine Blood (Negative) Urine Bacteria (None) /hpf Urine Mucus (None) /hpf 10/24/17 10/25/17 10/25/17 Range/Units 23:17 00:07 00:16 RBC (4.30-5.90) m/uL Hgb (13.0-17.5) gm/dL Hct (39.0-53.0) % Sodium 136 L (137-145) mmol/L Carbon Dioxide 21 L (22-30) mmol/L BUN (9-20) mg/dL Creatinine 0.60 L (0.66-1.25) mg/dL Glucose 188 H (74-99) mg/dL POC Glucose (mg/dL) 178 H 173 H (75-99) mg/dL Hemoglobin A1c (4.0-6.0) % Calcium 8.1 L (8.4-10.2) mg/dL Phosphorus 1.8 L (2.5-4.5) mg/dL Total Protein 5.1 L (6.3-8.2) g/dL Albumin 2.9 L (3.5-5.0) g/dL Urine Protein (Negative) Urine Glucose (UA) (Negative) Urine Ketones (Negative) Urine Blood (Negative) Urine Bacteria (None) /hpf Urine Mucus (None) /hpf 10/25/17 10/25/17 10/25/17 Range/Units 02:17 04:26 04:36 RBC 3.98 L (4.30-5.90) m/uL Hgb 12.2 L (13.0-17.5) gm/dL Hct 34.8 L (39.0-53.0) % Sodium (137-145) mmol/L Carbon Dioxide (22-30) mmol/L BUN (9-20) mg/dL Creatinine (0.66-1.25) mg/dL Glucose (74-99) mg/dL POC Glucose (mg/dL) 195 H 189 H (75-99) mg/dL Hemoglobin A1c (4.0-6.0) % Calcium (8.4-10.2) mg/dL Phosphorus (2.5-4.5) mg/dL Total Protein (6.3-8.2) g/dL Albumin (3.5-5.0) g/dL Urine Protein (Negative) Urine Glucose (UA) (Negative) Urine Ketones (Negative) Urine Blood (Negative) Urine Bacteria (None) /hpf Urine Mucus (None) /hpf 10/25/17 10/25/17 Range/Units 04:36 06:32 RBC (4.30-5.90) m/uL Hgb (13.0-17.5) gm/dL Hct (39.0-53.0) % Sodium 135 L (137-145) mmol/L Carbon Dioxide (22-30) mmol/L BUN (9-20) mg/dL Creatinine 0.60 L (0.66-1.25) mg/dL Glucose 192 H (74-99) mg/dL POC Glucose (mg/dL) 213 H (75-99) mg/dL Hemoglobin A1c (4.0-6.0) % Calcium 8.0 L (8.4-10.2) mg/dL Phosphorus (2.5-4.5) mg/dL Total Protein (6.3-8.2) g/dL Albumin (3.5-5.0) g/dL Urine Protein (Negative) Urine Glucose (UA) (Negative) Urine Ketones (Negative) Urine Blood (Negative) Urine Bacteria (None) /hpf Urine Mucus (None) /hpf Assessment and Plan Assessment: DKA, improved - transition off insulin gtt and to levemir 15 units daily and sliding scale -hemoglobin A1c 11.9 -add diet, accucheck qachs -papeterie table assembler recs Toxic metabolic encephalopathy secondary to above -Treatment as above Hypertension, currently controlled -Continue with lisinopril -metoprolol -Follow blood pressures Neuropathy -Hold Lyrica today secondary to sedation Suspected BPH -Continue outpatient Flomax Tobacco abuse - cessation medication non-compliance - encourage complience - viscose cellar charge hand consult if does well off insulin gtt this morning than transfer to medical floor. DVT prophylaxis: Heparin Discussed with: Nursing, and patient Anticipated discharge: [address]: home A total of 35 minutes was spent on the care of this complex patient more than 50 % of the time was spent in counseling and care coordination.
--- NOTE | 2017-10-25 09:50 | P.PN ---
Subjective Progress Note Date: 10/25/17 It is a 37-year-old male patient who presented emergency department because of a elevated blood sugar and immediately was diagnosed having acute diabetic ketoacidosis. This was attributed to noncompliance. The patient was in the hospital in July for the same. Apparently his supplies on his insulin pump ran out and the patient has been off treatment. The patient presented to the hospital dehydrated, initial blood sugar was above 600, initial bicarb level was less than 5, initial potassium level was at 6.2. Immediately the patient was given IV fluids a total of 2 L and the patient was started on insulin drip which is currently running at 8 units an hour. He was given also a bolus. The patient's most recent blood sugar is down to 267. The patient is showing improvement in his bicarb level which is up to 8. His most recent anion gap is at 22. Clinically is doing better. His more alert and awake knowing that he was very lethargic at time of his admission. No chest pain. No cough or sputum production. No headaches. No dysuria frequency or urgency. No open wounds or sores. He is producing adequate amount of urine output. He has no nausea. No vomiting. No abdominal pain. He is conversing and talking. He is sleepy in general. His mentation is gradually improving. He is known to have type 1 diabetes mellitus. He is known to have diabetic neuropathy and retinopathy along with hypertension. He has been also treated for a diabetic wound in his left foot 3 years back and he has recovered from that. He has history of depression. On 10/25/2017 the patient is being seen for a follow-up. The patient is awake and alert and following commands and answering questions. He admits that he has been taken Lantus insulin outpatient basis. He has stopped his insulin pump. This morning he is on insulin drip still at 2 units an hour. Blood sugars under better control. Anion gap is closed and the bicarb level is up to 23 and anion gap is down to 7. Most recent blood sugars of 192. He was offered diet. No leukocytosis. No chest pain. No cough or sputum production. No nausea vomiting or diarrhea or abdominal pain. He'll be switched to long- acting insulin today. Objective - Vital Signs Vital signs: Vital Signs Temp 98.2 F 10/25/17 08:00 Pulse 90 10/25/17 09:00 Resp 15 10/25/17 09:00 BP 137/76 10/25/17 09:00 Pulse Ox 96 10/25/17 09:00 Intake & Output 10/24/17 10/25/17 10/25/17 18:59 06:59 18:59 Intake Total 6167.394 0217.567 453.6 Output Total 1680 1060 330 Balance 635.561 6813.567 123.6 Weight 69.8 kg 69.5 kg Intake: IV 1800 2050 450 D5-0.45% NaCl with KCl 1800 1800 450 20Meq/l 1,000 ml @ 150 mls/hr IV .[id number] [facility] Rx# :[id number] Sodium Phosphate 10 mmol 250 In Sodium Chloride 0.9% 250 ml @ 125 mls/hr IVPB Q2H [facility] Rx#:[id number] Intake, IV Titration 84.239 12.567 3.6 Amount Insulin Regular 100 unit 84.239 12.567 3.6 In Sodium Chloride 0.9% 100 ml @ 0.1 UNITS/KG/HR 6.49 mls/hr IV .[id number] [facility] Rx#:[id number] Oral 0 Output: Urine 1680 1060 330 Other: Voiding Method Indwelling Catheter Indwelling Catheter # Voids 350 - Exam Gen. appearance the patient is calm, comfortable likely distress.Head exam was generally normal. There was no scleral icterus or corneal arcus. Mucous membranes were moist.Neck was supple and without jugular venous distension, thyromegaly, or carotid bruits. Carotids were easily palpable bilaterally. There was no adenopathy.Lungs were clear to auscultation and percussion, and with normal diaphragmatic excursion. No wheezes or rales were noted. Cardiac exam revealed the PMI to be normally situated and sized. The rhythm was regular and no extrasystoles were noted during several minutes of auscultation. The first and second heart sounds were normal and physiologic splitting of the second heart sound was noted. There were no murmurs, rubs, clicks, or gallops.Abdominal exam revealed normal bowel sounds. The abdomen was soft, non- tender, and without masses, organomegaly, or appreciable enlargement of the abdominal aorta. Extremities are showing missing parts in his right middle finger and missing big toe on the left foot. Otherwise he has adequate pulses and the patient has been neurovascularly intact.Examination of the skin revealed no evidence of significant rashes, suspicious appearing nevi or other concerning lesions. Neurologically awake and alert and following commands and answering questions appropriately. - Labs CBC & Chem 7: 10/25/17 04:36 10/25/17 04:36 Labs: Abnormal Lab Results - Last 24 Hours (Table) 10/24/17 10/24/17 10/24/17 Range/Units 01:44 08:00 09:59 RBC (4.30-5.90) m/uL Hgb (13.0-17.5) gm/dL Hct (39.0-53.0) % Sodium (137-145) mmol/L Carbon Dioxide (22-30) mmol/L BUN (9-20) mg/dL Creatinine (0.66-1.25) mg/dL Glucose (74-99) mg/dL POC Glucose (mg/dL) 264 H (75-99) mg/dL Hemoglobin A1c 11.9 H (4.0-6.0) % Calcium (8.4-10.2) mg/dL Phosphorus (2.5-4.5) mg/dL Total Protein (6.3-8.2) g/dL Albumin (3.5-5.0) g/dL Urine Protein 1+ H (Negative) Urine Glucose (UA) 4+ H (Negative) Urine Ketones 4+ H (Negative) Urine Blood Small H (Negative) Urine Bacteria Rare H (None) /hpf Urine Mucus Rare H (None) /hpf 10/24/17 10/24/17 10/24/17 Range/Units 11:10 11:56 12:09 RBC (4.30-5.90) m/uL Hgb (13.0-17.5) gm/dL Hct (39.0-53.0) % Sodium (137-145) mmol/L Carbon Dioxide 18 L (22-30) mmol/L BUN 23 H (9-20) mg/dL Creatinine (0.66-1.25) mg/dL Glucose 193 H (74-99) mg/dL POC Glucose (mg/dL) 182 H 225 H (75-99) mg/dL Hemoglobin A1c (4.0-6.0) % Calcium (8.4-10.2) mg/dL Phosphorus (2.5-4.5) mg/dL Total Protein (6.3-8.2) g/dL Albumin (3.5-5.0) g/dL Urine Protein (Negative) Urine Glucose (UA) (Negative) Urine Ketones (Negative) Urine Blood (Negative) Urine Bacteria (None) /hpf Urine Mucus (None) /hpf 10/24/17 10/24/17 10/24/17 Range/Units 13:09 14:06 15:05 RBC (4.30-5.90) m/uL Hgb (13.0-17.5) gm/dL Hct (39.0-53.0) % Sodium (137-145) mmol/L Carbon Dioxide (22-30) mmol/L BUN (9-20) mg/dL Creatinine (0.66-1.25) mg/dL Glucose (74-99) mg/dL POC Glucose (mg/dL) 175 H 197 H 153 H (75-99) mg/dL Hemoglobin A1c (4.0-6.0) % Calcium (8.4-10.2) mg/dL Phosphorus (2.5-4.5) mg/dL Total Protein (6.3-8.2) g/dL Albumin (3.5-5.0) g/dL Urine Protein (Negative) Urine Glucose (UA) (Negative) Urine Ketones (Negative) Urine Blood (Negative) Urine Bacteria (None) /hpf Urine Mucus (None) /hpf 10/24/17 10/24/17 10/24/17 Range/Units 16:12 16:34 16:58 RBC (4.30-5.90) m/uL Hgb (13.0-17.5) gm/dL Hct (39.0-53.0) % Sodium 136 L (137-145) mmol/L Carbon Dioxide 20 L (22-30) mmol/L BUN 21 H (9-20) mg/dL Creatinine (0.66-1.25) mg/dL Glucose 143 H (74-99) mg/dL POC Glucose (mg/dL) 155 H 145 H (75-99) mg/dL Hemoglobin A1c (4.0-6.0) % Calcium 8.1 L (8.4-10.2) mg/dL Phosphorus 2.1 L (2.5-4.5) mg/dL Total Protein 5.2 L (6.3-8.2) g/dL Albumin 2.9 L (3.5-5.0) g/dL Urine Protein (Negative) Urine Glucose (UA) (Negative) Urine Ketones (Negative) Urine Blood (Negative) Urine Bacteria (None) /hpf Urine Mucus (None) /hpf 10/24/17 10/24/17 10/24/17 Range/Units 18:00 19:05 20:53 RBC (4.30-5.90) m/uL Hgb (13.0-17.5) gm/dL Hct (39.0-53.0) % Sodium (137-145) mmol/L Carbon Dioxide (22-30) mmol/L BUN (9-20) mg/dL Creatinine (0.66-1.25) mg/dL Glucose (74-99) mg/dL POC Glucose (mg/dL) 148 H 142 H 169 H (75-99) mg/dL Hemoglobin A1c (4.0-6.0) % Calcium (8.4-10.2) mg/dL Phosphorus (2.5-4.5) mg/dL Total Protein (6.3-8.2) g/dL Albumin (3.5-5.0) g/dL Urine Protein (Negative) Urine Glucose (UA) (Negative) Urine Ketones (Negative) Urine Blood (Negative) Urine Bacteria (None) /hpf Urine Mucus (None) /hpf 10/24/17 10/25/17 10/25/17 Range/Units 23:17 00:07 00:16 RBC (4.30-5.90) m/uL Hgb (13.0-17.5) gm/dL Hct (39.0-53.0) % Sodium 136 L (137-145) mmol/L Carbon Dioxide 21 L (22-30) mmol/L BUN (9-20) mg/dL Creatinine 0.60 L (0.66-1.25) mg/dL Glucose 188 H (74-99) mg/dL POC Glucose (mg/dL) 178 H 173 H (75-99) mg/dL Hemoglobin A1c (4.0-6.0) % Calcium 8.1 L (8.4-10.2) mg/dL Phosphorus 1.8 L (2.5-4.5) mg/dL Total Protein 5.1 L (6.3-8.2) g/dL Albumin 2.9 L (3.5-5.0) g/dL Urine Protein (Negative) Urine Glucose (UA) (Negative) Urine Ketones (Negative) Urine Blood (Negative) Urine Bacteria (None) /hpf Urine Mucus (None) /hpf 10/25/17 10/25/17 10/25/17 Range/Units 02:17 04:26 04:36 RBC 3.98 L (4.30-5.90) m/uL Hgb 12.2 L (13.0-17.5) gm/dL Hct 34.8 L (39.0-53.0) % Sodium (137-145) mmol/L Carbon Dioxide (22-30) mmol/L BUN (9-20) mg/dL Creatinine (0.66-1.25) mg/dL Glucose (74-99) mg/dL POC Glucose (mg/dL) 195 H 189 H (75-99) mg/dL Hemoglobin A1c (4.0-6.0) % Calcium (8.4-10.2) mg/dL Phosphorus (2.5-4.5) mg/dL Total Protein (6.3-8.2) g/dL Albumin (3.5-5.0) g/dL Urine Protein (Negative) Urine Glucose (UA) (Negative) Urine Ketones (Negative) Urine Blood (Negative) Urine Bacteria (None) /hpf Urine Mucus (None) /hpf 10/25/17 10/25/17 Range/Units 04:36 06:32 RBC (4.30-5.90) m/uL Hgb (13.0-17.5) gm/dL Hct (39.0-53.0) % Sodium 135 L (137-145) mmol/L Carbon Dioxide (22-30) mmol/L BUN (9-20) mg/dL Creatinine 0.60 L (0.66-1.25) mg/dL Glucose 192 H (74-99) mg/dL POC Glucose (mg/dL) 213 H (75-99) mg/dL Hemoglobin A1c (4.0-6.0) % Calcium 8.0 L (8.4-10.2) mg/dL Phosphorus (2.5-4.5) mg/dL Total Protein (6.3-8.2) g/dL Albumin (3.5-5.0) g/dL Urine Protein (Negative) Urine Glucose (UA) (Negative) Urine Ketones (Negative) Urine Blood (Negative) Urine Bacteria (None) /hpf Urine Mucus (None) /hpf Assessment and Plan Plan: Assessment 1 acute diabetic ketoacidosis with severe anion gap metabolic acidosis, recovered. The patient will be taken off the insulin drip and be switched to long-acting insulin. 2 altered mentation secondary to above, recovered 3 diabetes mellitus type 1 with poor Devante control and the patient has been hospitalized in the past for the same 4 diabetic peripheral neuropathy and retinopathy 5 depression 6 BPH 7 previous amputations of discussed Plan Initiate Levemir insulin 15 units along with a scale. Stop insulin drip. Of her diet. Cut down the IV fluids to KVO. Transfer this patient to medical floor within next few hours.
[2017-10-25] MEDS: INSULIN DETEMIR 100 UNIT/ML 10 ML VIAL SQ SCH (09:58)
[2017-10-25 11:50] LABS: Glucose,Whole Blood 294 mg/dL (75-99)
[2017-10-25] MEDS: INSULIN ASPART 100 UNIT/ML 1 ML 10 ML VIAL SQ SCH ×3 (12:35→20:54)
[2017-10-25] MEDS: ACETAMINOPHEN TAB 325 MG TAB PO PRN (16:41)
[2017-10-25 17:05] LABS: Glucose,Whole Blood 221 mg/dL (75-99)
[2017-10-25 20:35] LABS: Glucose,Whole Blood 203 mg/dL (75-99)
[2017-10-26 07:14] LABS: Glucose,Whole Blood 171 mg/dL (75-99)
[2017-10-26 07:24] LABS: HCT 34.5 % (39.0-53.0); HGB 12.1 gm/dL (13.0-17.5); MCH 30.6 pg (25.0-35.0); MCV 87.4 fL (80.0-100.0); Mean Platelet Volume 6.8; Platelet Count 211 k/uL (150-450); RBC 3.95 m/uL (4.30-5.90); RDW 13.3 % (11.5-15.5); WBC 5.1 k/uL (3.8-10.6)
[2017-10-26 07:39] LABS: Anion Gap 5 mmol/L; Blood Urea Nitrogen 8 mg/dL (9-20); Calcium 8.3 mg/dL (8.4-10.2); Carbon Dioxide 31 mmol/L (22-30); Chloride 102 mmol/L (98-107); Glucose 148 mg/dL (74-99); Phosphorus 2.5 mg/dL (2.5-4.5); Potassium 3.7 mmol/L (3.5-5.1); Sodium 138 mmol/L (137-145)
[2017-10-26] MEDS: HEPARIN SODIUM,PORCINE 5,000 UNIT/ML 1 ML VIAL SQ SCH (07:46)
[2017-10-26] MEDS: INSULIN ASPART 100 UNIT/ML 1 ML 10 ML VIAL SQ SCH ×2 (07:46→11:38)
[2017-10-26] MEDS: LISINOPRIL 2.5 MG TAB PO SCH (07:47)
[2017-10-26] MEDS: METOPROLOL TARTRATE 25 MG TAB PO SCH (07:47)
[2017-10-26] MEDS: TAMSULOSIN 0.4 MG CAP.ER.24H PO SCH (07:47)
[2017-10-26 07:51] VITALS: BP 135/91; PULSE 88; RESP 18; TEMP 98.3
[2017-10-26] MEDS: ACETAMINOPHEN TAB 325 MG TAB PO PRN (07:53)
[2017-10-26] MEDS: SODIUM CHLORIDE 0.9% 1,000 ML IV SCH (09:20)
[2017-10-26] MEDS: INSULIN DETEMIR 100 UNIT/ML 10 ML VIAL SQ SCH (09:20)
--- NOTE | 2017-10-26 10:54 | P.DS ---
Providers Date of admission: 10/24/17 03:05 Expected date of discharge: 10/26/17 Attending physician: Maegan Ghotra MD Consults: 10/24/17 03:05 Consult Physician Stat Consulting Provider: Stacey Pham Consult Reason/Comments: critical care Do you want consulting provider notified?: Already Contacted Primary care physician: Stated None - Discharge Diagnosis(es) (1) Toxic metabolic encephalopathy Status: Acute (2) HTN (hypertension) Status: Acute (3) Neuropathy Status: Acute (4) BPH (benign prostatic hyperplasia) Status: Acute (5) Tobacco abuse Status: Acute (6) Noncompliance Status: Acute (7) DKA (diabetic ketoacidoses) Status: Acute Hospital Course: Patient is a 37-year-old male to past medical history of diabetes, hypertension, and tobacco abuse who presented to the emergency department with complaints of hyperglycemia. In the ER he underwent an extensive evaluation. On arrival he was found to be tachycardic with a pulse of 122 and hypertensive blood pressure 154/80 that went up to 171/75. He was also tachypneic with a respiratory rate of 32. Laboratory analysis demonstrated severe DKA with an undetectable bicarb level, his blood sugars 584. In the ER he admitted to only taking his diabetic regimen sporadically and not taking anything for the last few days. He was given IV fluids and started on an insulin drip. He was admitted to the ICU. His blood sugar came down quickly and he was transitioned to D5 half normal with potassium for his fluids. He was maintained on insulin drip. He did have some feelings of incomplete bladder emptying necessitating myers catheter placement. Despite improvement in his labs he did remain lethargic throughout the day on 10/24. His anion gap closed by the night of . He was maintained on an insulin gtt due to lethargy and not eating. On the morning of 10/25 he was more awake and alert. He was transitioned off his insulin drip and started on Levemir subcutaneous as well as sliding scale. His blood pressure had also greatly improved. By the morning of 10/26 his back to his normal self and mentating well. He stated that he had his insulin pump at his friend's house but ran out of the insulin to fill it. He also did not have his Levemir NovoLog. He states his parents were on the way to pick him up. He does have Levemir and NovoLog at home as well as all of his pump supplies. He also states that he has lancets, strips, and a glucometer. He has not needed anything. I again stressed the importance of compliance. We talked about how that his diabetes is left uncontrolled a complete a further amputations, dialysis and renal failure, blindness, heart attack, and strokes. His prelunch blood sugar was elevated at 435 after all of his blood sugars had been to 20 or less for over 24 hours. He is going to reapply his insulin pump as soon as he gets home. He was covered with the 10 units of subcutaneous NovoLog. His family and him are anxious to get home and they will reapply his insulin pump today. They felt he would be able to manage his hyperglycemia at home. Patient seen and examined at bedside. Feeling well. No chest pain, shortness of breath, nausea, or vomiting. No abdominal pain. Vital signs reviewed and stable. General: non toxic, no distress, appears at stated age Derm: warm, dry Head: atraumatic, normocephalic, symmetric Eyes: EOMI, no lid lag, anicteric sclera Mouth: no lip lesion, mucus membranes moist Cardiovascular: S1S2 reg, no murmur, positive posterior tibial pulse bilateral, Lungs: CTA bilateral, no rhonchi, no rales , no accessory muscle use Abdominal: soft, nontender to palpation, no guarding, no appreciable organomegaly Ext: no gross muscle atrophy, no edema, no contractures Neuro: CN II-XI grossly intact, no focal neuro deficits Psych: Alert, oriented, appropriate affect A total of 45 minutes of time were spent preparing this complex discharge summary . Patient Condition at Discharge: Serious Plan - Discharge Summary New Discharge Prescriptions: Continue Tamsulosin [Flomax] 0.4 mg PO DAILY Pregabalin [Lyrica] 200 mg PO BID Metoprolol Tartrate [Lopressor] 25 mg PO BID Lisinopril [Zestril] 10 mg PO DAILY Insulin Glargine,Hum.rec.anlog [Basaglar Kwikpen U-100] 30 unit SQ HS PRN PRN Reason: PUMP FAILURE Insulin Aspart [NovoLOG (formulary)] See Protocol SQ CONTINUOUS Discharge Medication List Pregabalin [Lyrica] 200 mg PO BID 08/17/17 [History] Tamsulosin [Flomax] 0.4 mg PO DAILY 08/17/17 [History] Insulin Aspart [NovoLOG (formulary)] See Protocol SQ CONTINUOUS 10/24/17 [ History] Insulin Glargine,Hum.rec.anlog [Basaglar Kwikpen U-100] 30 unit SQ HS PRN [History] Lisinopril [Zestril] 10 mg PO DAILY 10/24/17 [History] Metoprolol Tartrate [Lopressor] 25 mg PO BID 10/24/17 [History] Follow up Appointment(s)/Referral(s): Edmund Frye [REFERRING] - 1 Week (Patient to call Dr. Frye's office Saturday to schedule follow up appointment. The office is closed at time of discharge. ) Patient Instructions/Handouts: Diabetes Insipidus (GEN) Activity/Diet/Wound Care/Special Instructions: Take your insulin, check blood sugar 3 times daily Follow-up with Dr. Frye next week Discharge Disposition: HOME SELF-CARE
[2017-10-26 11:22] LABS: Glucose,Whole Blood 435 mg/dL (75-99)
--- NOTE | 2017-10-26 13:20 | P.PN ---
Subjective Progress Note Date: 10/26/17 Principal diagnosis: Acute diabetic ketoacidosis secondary to noncompliance. It is a 37-year-old male patient who presented emergency department because of a elevated blood sugar and immediately was diagnosed having acute diabetic ketoacidosis. This was attributed to noncompliance. The patient was in the hospital in July for the same. Apparently his supplies on his insulin pump ran out and the patient has been off treatment. The patient presented to the hospital dehydrated, initial blood sugar was above 600, initial bicarb level was less than 5, initial potassium level was at 6.2. Immediately the patient was given IV fluids a total of 2 L and the patient was started on insulin drip which is currently running at 8 units an hour. He was given also a bolus. The patient's most recent blood sugar is down to 267. The patient is showing improvement in his bicarb level which is up to 8. His most recent anion gap is at 22. Clinically is doing better. His more alert and awake knowing that he was very lethargic at time of his admission. No chest pain. No cough or sputum production. No headaches. No dysuria frequency or urgency. No open wounds or sores. He is producing adequate amount of urine output. He has no nausea. No vomiting. No abdominal pain. He is conversing and talking. He is sleepy in general. His mentation is gradually improving. He is known to have type 1 diabetes mellitus. He is known to have diabetic neuropathy and retinopathy along with hypertension. He has been also treated for a diabetic wound in his left foot 3 years back and he has recovered from that. He has history of depression. On 10/25/2017 the patient is being seen for a follow-up. The patient is awake and alert and following commands and answering questions. He admits that he has been taken Lantus insulin outpatient basis. He has stopped his insulin pump. This morning he is on insulin drip still at 2 units an hour. Blood sugars under better control. Anion gap is closed and the bicarb level is up to 23 and anion gap is down to 7. Most recent blood sugars of 192. He was offered diet. No leukocytosis. No chest pain. No cough or sputum production. No nausea vomiting or diarrhea or abdominal pain. He'll be switched to long- acting insulin today. Patient is seen again today 10/26/2017 in follow-up on the regular medical floor. He is awake and alert in no acute distress. He denies any dizziness or lightheadedness. No shortness of breath. No chest pain. Glucose 148. Creatinine 0.60. Anion gap 5. Currently on 0.9 normal saline at 100 emesis per hour. His insulin has been adjusted. He is hoping to go home today. Objective - Vital Signs Vital signs: Vital Signs Temp 98.3 F 10/26/17 07:00 Pulse 88 10/26/17 08:00 Resp 18 10/26/17 08:00 BP 135/91 10/26/17 07:00 Pulse Ox 96 10/26/17 07:00 Intake & Output 10/25/17 10/26/17 10/26/17 18:59 06:59 18:59 Intake Total 1353.6 1100 Output Total 630 Balance 723.6 1100 Weight 69.5 kg 69.5 kg Intake: IV 450 1100 D5-0.45% NaCl with KCl 450 20Meq/l 1,000 ml @ 150 mls/hr IV .[id number] [facility] Rx# :[id number] Sodium Chloride 0.9% 1, 1100 000 ml @ 100 mls/hr IV . Q10H [facility] Rx#:[id number] Intake, IV Titration 903.6 Amount Insulin Regular 100 unit 3.6 In Sodium Chloride 0.9% 100 ml @ 0.1 UNITS/KG/HR 6.49 mls/hr IV .[id number] [facility] Rx#:[id number] Sodium Chloride 0.9% 1, 900 000 ml @ 100 mls/hr IV . Q10H [facility] Rx#:[id number] Output: Urine 630 Other: Voiding Method Indwelling Catheter Indwelling Catheter Indwelling Catheter # Voids 2 - Exam GENERAL EXAM: Alert, active, comfortable in no apparent distress. HEAD: Normocephalic. EYES: Normal reaction of pupils, equal size. NOSE: Clear with pink turbinates. THROAT: No erythema or exudates. NECK: No masses, no JVD. CHEST: No chest wall deformity. LUNGS: Equal air entry with no crackles, wheeze, rhonchi or dullness. CVS: S1 and S2 normal with no audible murmur, regular rhythm. ABDOMEN: No hepatosplenomegaly, normal bowel sounds, no guarding or rigidity. SPINE: No scoliosis or deformity SKIN: No rashes CENTRAL NERVOUS SYSTEM: No focal deficits, tone is normal in all 4 extremities. EXTREMITIES: There is no peripheral edema. No clubbing, no cyanosis. Peripheral pulses are intact. - Labs CBC & Chem 7: 10/26/17 06:37 10/26/17 06:37 Labs: Abnormal Lab Results - Last 24 Hours (Table) 10/25/17 10/25/17 10/26/17 Range/Units 16:57 20:29 06:37 RBC 3.95 L (4.30-5.90) m/uL Hgb 12.1 L (13.0-17.5) gm/dL Hct 34.5 L (39.0-53.0) % Carbon Dioxide (22-30) mmol/L BUN (9-20) mg/dL Creatinine (0.66-1.25) mg/dL Glucose (74-99) mg/dL POC Glucose (mg/dL) 221 H 203 H (75-99) mg/dL Calcium (8.4-10.2) mg/dL 10/26/17 10/26/17 10/26/17 Range/Units 06:37 07:10 11:08 RBC (4.30-5.90) m/uL Hgb (13.0-17.5) gm/dL Hct (39.0-53.0) % Carbon Dioxide 31 H (22-30) mmol/L BUN 8 L (9-20) mg/dL Creatinine 0.60 L (0.66-1.25) mg/dL Glucose 148 H (74-99) mg/dL POC Glucose (mg/dL) 171 H 435 H (75-99) mg/dL Calcium 8.3 L (8.4-10.2) mg/dL Assessment and Plan Assessment: Assessment 1 acute diabetic ketoacidosis with severe anion gap metabolic acidosis, recovered. His insulin has been adjusted.. 2 altered mentation secondary to above, recovered 3 diabetes mellitus type 1 with poor blood sugar control and the patient has been hospitalized in the past for the same 4 diabetic peripheral neuropathy and retinopathy 5 depression 6 BPH 7 previous amputations of discussed Plan Was seen and evaluated by Dr. Pham. His blood glucose levels have been under good control. He was again educated regarding the importance of medication compliance and the risks of long-term effects of uncontrolled diabetes mellitus including erectile dysfunction, coronary artery disease, blindness and renal failure. He states he will be more compliant. Plan is for discharge today. I, the cosigning physician, performed a history & physical examination of the patient. Lungs sounds are clear. Maintaining good O2 saturations in the 90s on room air. I discussed the assessment and plan of care with my nurse practitioner, Josselyn Ching. I attest to the above note as dictated by her.
== END 2017-10-26 11:45 | disposition home or self-care (01) | DRG 637 ==
LOC: EC 01:36 → 6ICU 03:05 → 5MS5E 10-25 11:44
PROVIDERS: ADMIT Internal Medicine; ATTEND Internal Medicine
DX: E10.10 Type 1 diabetes mellitus with ketoacidosis without coma (principal); G92 Toxic encephalopathy; E10.42 Type 1 diabetes mellitus with diabetic polyneuropathy; E87.5 Hyperkalemia; I10 Essential (primary) hypertension; Z96.41 Presence of insulin pump (external) (internal); F32.9 Major depressive disorder, single episode, unspecified; F17.210 Nicotine dependence, cigarettes, uncomplicated; T38.3X6A Underdosing of insulin and oral hypoglycemic [antidiabetic] drugs, initial encounter; N40.0 Benign prostatic hyperplasia without lower urinary tract symptoms; R33.9 Retention of urine, unspecified; E10.319 Type 1 diabetes mellitus with unspecified diabetic retinopathy without macular edema; I45.10 Unspecified right bundle-branch block; R00.0 Tachycardia, unspecified; E86.0 Dehydration; Z79.4 Long term (current) use of insulin; Z80.9 Family history of malignant neoplasm, unspecified; Z89.021 Acquired absence of right finger(s); Z79.899 Other long term (current) drug therapy; Z89.412 Acquired absence of left great toe
CPT/HCPCS: 36415; 71045; 80048; 80051; 80053; 80306; 81001; 82009; 82550; 82553; 82565; 82947; 83036; 83605; 83735; 84100; 84484; 84520; 85025; 85027; 85610; 85730; 93005; 96374; 96375; 99291

== ENCOUNTER 2018-05-11 20:33 | Inpatient (IN) | payer OTHER ==
[2018-05-11 21:32] LABS: Glucose,Whole Blood 347 mg/dL (75-99)
[2018-05-11] MEDS ORDERED: VANCOMYCIN IV PER PHARMACY 1 EACH MISC MISCELLANE PRN (21:45)
[2018-05-11] MEDS ORDERED: ACETAMINOPHEN TAB 500 MG TAB PO STA (21:45)
[2018-05-11] MEDS ORDERED: MORPHINE SULFATE 4 MG/ML SYRINGE IVP STA (21:47)
[2018-05-11] MEDS ORDERED: VANCOMYCIN 1,250 MG in SODIUM CHLORIDE 0.9% 250 ML IVPB STA (21:49)
--- NOTE | 2018-05-11 22:15 | ED ---
General Adult HPI - General Chief complaint: Skin/Abscess/Foreign Body Stated complaint: foot pain Time Seen by Provider: 05/11/18 21:19 Source: patient Mode of arrival: ambulatory Limitations: no limitations - History of Present Illness Initial comments: Patient is a 37-year-old type I diabetic presenting for left foot wound. Patient states that he had a left great toe amputation many years ago and that over the last week or so, he noted that his left foot was coming more swollen and that there was some foul smell coming from the wound at the left great toe stump. He denies any fevers or chills but states that both his legs are fairly swollen. He denies any chest pain or shortness breath. - Related Data Home Medications Medication Instructions Recorded Confirmed Pregabalin [Lyrica] 200 mg PO BID 08/17/17 03/30/18 Insulin Aspart [NovoLOG See Protocol SQ ACHS 10/24/17 03/30/18 (formulary)] Albuterol Inhaler [Ventolin Hfa 2 puff INHALATION RT-Q6H PRN 03/30/18 03/30/18 Inhaler] Escitalopram [Lexapro] 20 mg PO DAILY 03/30/18 03/30/18 Glucagon Emergency Kit 1 mg IM ONCE PRN 03/30/18 03/30/18 Lisinopril [Zestril] 2.5 mg PO DAILY 03/30/18 03/30/18 buPROPion HCL [Wellbutrin SR] 150 mg PO BID 03/30/18 03/30/18 Previous Rx's Medication Instructions Recorded Insulin Aspart [NovoLOG 4 unit SQ AC-LUNCH vial 04/02/18 (formulary)] Insulin Aspart [NovoLOG 4 unit SQ AC-SUPPER vial 04/02/18 (formulary)] Metoprolol Tartrate [Lopressor] 50 mg PO DAILY tab 04/03/18 Pregabalin [Lyrica] 100 mg PO BID cap 04/03/18 Tamsulosin [Flomax] 0.4 mg PO HS cap.er.24h 04/03/18 Allergies Allergy/AdvReac Type Severity Reaction Status Date / Time No Known Allergies Allergy Verified 05/11/18 20:47 Review of Systems ROS Statement: Those systems with pertinent positive or pertinent negative responses have been documented in the HPI. Constitutional: Negative for chills, fatigue and fever. HENT: Negative for congestion. Respiratory: Negative for chest tightness, shortness of breath and wheezing. Negative for cough Cardiovascular: Negative for chest pain and palpitations. Positive for lower extremity edema bilaterally Gastrointestinal: Negative for abdominal pain. Negative for abdominal distention , diarrhea, nausea and vomiting. Genitourinary: Negative for dysuria. Musculoskeletal: Negative for back pain, neck pain and neck stiffness. Skin: Positive for color change. Neurological: Negative for dizziness, speech difficulty, weakness and light- headedness. Psychiatric/Behavioral: Negative for agitation and confusion. Negative for anxiety ROS Other: All systems not noted in ROS Statement are negative. Past Medical History Past Medical History: COPD, Diabetes Mellitus, Hypertension Additional Past Medical History / Comment(s): Diabetes mellitus type 1, diabetic neuropathy, diabetic retinopathy, hypertension, depression, history of a diabetic ulcer on the left greater toe that resulted in an amputation of the toe. previous amputation of right middle finger to the second knuckle due to work related injury History of Any Multi-Drug Resistant Organisms: None Reported Past Surgical History: Orthopedic Surgery Additional Past Surgical History / Comment(s): hand surg.-middle right finger ( to the second knuckle) amputated due to traumatic injury at work, PICC line placement and subsequent removal, multiple I&D. Amputation of L great toe due to a diabetic ulcer post surgical I & Past Anesthesia/Blood Transfusion Reactions: No Reported Reaction Past Psychological History: Anxiety, Depression Smoking Status: Heavy tobacco smoker Past Alcohol Use History: None Reported Past Drug Use History: Marijuana, Methamphetamine - Past Family History Father Family Medical History: No Reported History Mother Family Medical History: Cancer General Exam - General Exam Comments Initial Comments: Constitutional: Pt is oriented to person, place, and time. Pt appears well- developed and well-nourished. No distress. HENT: Head: Normocephalic and atraumatic. Eyes: EOM are normal. Neck: Normal range of motion. Neck supple. Cardiovascular: Tachycardia present, regular rhythm, S1 normal, S2 normal and normal heart sounds. Exam reveals no gallop and no friction rub. No murmur heard. Trace pitting edema of bilateral lower extremities Pulmonary/Chest: Effort normal and breath sounds normal. No tachypnea and no bradypnea. No respiratory distress. No wheezes or rales noted. Abdominal: Soft. Bowel sounds are normal. Pt exhibits no shifting dullness, no distension, no pulsatile liver, no fluid wave, no abdominal bruit and no ascites. There is no tenderness. There is no rigidity, no rebound, no guarding, no tenderness at McBurney's point and negative Alegria's sign. Musculoskeletal: Normal range of motion. There is erythema of the left MTP with open wound with mild purulent discharge and erythema Neurological: Pt is alert and oriented to person, place, and time. No cranial nerve deficit. Skin: Skin is warm and dry. No rash noted. Pt is not diaphoretic. No pallor. Psychiatric: Pt has a normal mood and affect. Pt behavior is normal. Thought content normal. Limitations: no limitations Course Vital Signs 05/11/18 05/11/18 05/11/18 20:45 21:28 21:30 Temperature 98.8 F Pulse Rate 114 H 100 61 Respiratory 18 16 16 Rate Blood Pressure 119/70 143/90 143/90 O2 Sat by Pulse 97 98 97 Oximetry 05/11/18 22:00 Temperature Pulse Rate 65 Respiratory 16 Rate Blood Pressure 150/93 O2 Sat by Pulse 98 Oximetry Medical Decision Making - Lab Data Result diagrams: 05/11/18 21:14 05/11/18 21:14 Lab Results 05/11/18 05/11/18 05/11/18 Range/Units 21:14 21:14 21:14 WBC 8.8 (3.8-10.6) k/uL RBC 3.76 L (4.30-5.90) m/uL Hgb 11.4 L (13.0-17.5) gm/dL Hct 31.9 L (39.0-53.0) % MCV 84.7 D (80.0-100.0) fL MCH 30.3 (25.0-35.0) pg MCHC 35.8 (31.0-37.0) g/dL RDW 13.0 (11.5-15.5) % Plt Count 241 (150-450) k/uL Neutrophils % 66 % Lymphocytes % 26 % Monocytes % 3 % Eosinophils % 4 % Basophils % 1 % Neutrophils # 5.8 (1.3-7.7) k/uL Lymphocytes # 2.3 (1.0-4.8) k/uL Monocytes # 0.3 (0-1.0) k/uL Eosinophils # 0.3 (0-0.7) k/uL Basophils # 0.1 (0-0.2) k/uL PT (9.0-12.0) sec INR (<1.2) APTT (22.0-30.0) sec Sodium 137 (137-145) mmol/L Potassium 4.3 (3.5-5.1) mmol/L Chloride 102 (98-107) mmol/L Carbon Dioxide 29 (22-30) mmol/L Anion Gap 6 mmol/L BUN 17 (9-20) mg/dL Creatinine 0.64 L (0.66-1.25) mg/dL Est GFR (CKD-EPI)AfAm >90 (>60 ml/min/1.73 sqM) Est GFR (CKD-EPI)NonAf >90 (>60 ml/min/1.73 sqM) Glucose 322 H (74-99) mg/dL POC Glucose (mg/dL) (75-99) mg/dL POC Glu Publications Manager ID Plasma Lactic Acid Lior 1.8 (0.7-2.0) mmol/L Calcium 8.9 (8.4-10.2) mg/dL Total Bilirubin 0.2 (0.2-1.3) mg/dL AST 20 (17-59) U/L ALT 28 (21-72) U/L Alkaline Phosphatase 164 H (38-126) U/L C-Reactive Protein <5.0 (<10.0) mg/L Total Protein 5.3 L (6.3-8.2) g/dL Albumin 3.0 L (3.5-5.0) g/dL 05/11/18 05/11/18 Range/Units 21:14 21:29 WBC (3.8-10.6) k/uL RBC (4.30-5.90) m/uL Hgb (13.0-17.5) gm/dL Hct (39.0-53.0) % MCV (80.0-100.0) fL MCH (25.0-35.0) pg MCHC (31.0-37.0) g/dL RDW (11.5-15.5) % Plt Count (150-450) k/uL Neutrophils % % Lymphocytes % % Monocytes % % Eosinophils % % Basophils % % Neutrophils # (1.3-7.7) k/uL Lymphocytes # (1.0-4.8) k/uL Monocytes # (0-1.0) k/uL Eosinophils # (0-0.7) k/uL Basophils # (0-0.2) k/uL PT 9.7 (9.0-12.0) sec INR 1.0 (<1.2) APTT 22.4 (22.0-30.0) sec Sodium (137-145) mmol/L Potassium (3.5-5.1) mmol/L Chloride (98-107) mmol/L Carbon Dioxide (22-30) mmol/L Anion Gap mmol/L BUN (9-20) mg/dL Creatinine (0.66-1.25) mg/dL Est GFR (CKD-EPI)AfAm (>60 ml/min/1.73 sqM) Est GFR (CKD-EPI)NonAf (>60 ml/min/1.73 sqM) Glucose (74-99) mg/dL POC Glucose (mg/dL) 347 H (75-99) mg/dL POC Glu Publications Manager ID Abbe Dubon Plasma Lactic Acid Lior (0.7-2.0) mmol/L Calcium (8.4-10.2) mg/dL Total Bilirubin (0.2-1.3) mg/dL AST (17-59) U/L ALT (21-72) U/L Alkaline Phosphatase (38-126) U/L C-Reactive Protein (<10.0) mg/L Total Protein (6.3-8.2) g/dL Albumin (3.5-5.0) g/dL Disposition Clinical Impression: Cellulitis, Hyperglycemia Disposition: ADMITTED IP TO THIS [facility] Condition: Fair Referrals: Nonstaff,Physician [Primary Care Provider] - 1-2 days Decision to Admit Reason: Admit from EC Decision Date: 05/11/18 Decision Time: 23:26
[2018-05-11] MEDS: SODIUM CHLORIDE 0.9% 1,000 ML IV SCH (22:19)
[2018-05-11] MEDS: SODIUM CHLORIDE 0.9% 500 ML 500 ML IV SCH (22:19)
[2018-05-11 22:27] LABS: Basophils # (A) 0.1 k/uL (0-0.2); Basophils % (A) 1 %; Eosinophils # (A) 0.3 k/uL (0-0.7); Eosinophils % (A) 4 %; HCT 31.9 % (39.0-53.0); HGB 11.4 gm/dL (13.0-17.5); Lymphocytes # (A) 2.3 k/uL (1.0-4.8); Lymphocytes % (A) 26 %; MCH 30.3 pg (25.0-35.0); MCHC 35.8 g/dL (31.0-37.0); Mean Platelet Volume 7.3; Monocytes # (A) 0.3 k/uL (0-1.0); Monocytes % (A) 3 %; Neutrophils # (A) 5.8 k/uL (1.3-7.7); Neutrophils % (A) 66 %; Platelet Count 241 k/uL (150-450); RBC 3.76 m/uL (4.30-5.90); WBC 8.8 k/uL (3.8-10.6)
[2018-05-11 22:28] LABS: MCV 84.7 fL (80.0-100.0)
[2018-05-11 22:32] LABS: Partial Thromboplastin Time 22.4 sec (22.0-30.0); Prothrombin Time 9.7 sec (9.0-12.0)
[2018-05-11 22:36] LABS: ALT 28 U/L (21-72); AST 20 U/L (17-59); Alkaline Phosphatase 164 U/L (38-126); Anion Gap 6 mmol/L; Blood Urea Nitrogen 17 mg/dL (9-20); Calcium 8.9 mg/dL (8.4-10.2); Carbon Dioxide 29 mmol/L (22-30); Chloride 102 mmol/L (98-107); Glucose 322 mg/dL (74-99); Potassium 4.3 mmol/L (3.5-5.1); Sodium 137 mmol/L (137-145); Total Bilirubin 0.2 mg/dL (0.2-1.3); Total Protein 5.3 g/dL (6.3-8.2)
--- NOTE | 2018-05-11 22:40 | XR ---
EXAMINATION TYPE: XR foot limited LT DATE OF EXAM: 05/11/2018 COMPARISON: 05/23/2016 HISTORY: Foot pain TECHNIQUE: 2 views. FINDINGS: There is amputation of the big toe at the level of the head of the fifth metatarsal. There is some so ft tissue mild deformity. There is sclerosis and lucency at the head of the second metatarsal. There is mild sclerosis in the distal third and fourth metatarsals. IMPRESSION: There is some changes at the second and third metatarsal heads consistent with old fractu res. There is also lucency at the second metatarsal head that raises the possibility of osteomyelitis . The distal first metatarsal appears unchanged.
[2018-05-11] MEDS ORDERED: NALOXONE 0.4 MG/ML 1 ML VIAL IV PRN (23:21)
[2018-05-11 23:23] LABS: C Reactive Protein <5.0 mg/L (<10.0)
[2018-05-11 23:37] LABS: Erythrocyte Sedimentation Rate 9 mm/hr (0-15)
[2018-05-12] MEDS: SODIUM CHLORIDE 0.9% 500 ML 500 ML IV SCH ×2 (00:01→00:33)
[2018-05-12] MEDS: cefTRIAXone 2,000 MG in SODIUM CHLORIDE 0.9% 100 ML IVPB SCH ×2 (00:29→11:59)
[2018-05-12] MEDS: MORPHINE SULFATE 4 MG/ML SYRINGE IV PRN ×5 (04:20→22:14)
[2018-05-12] MEDS: VANCOMYCIN 1,250 MG in SODIUM CHLORIDE 0.9% 250 ML IVPB SCH ×2 (06:03→14:42)
[2018-05-12] MEDS: SODIUM CHLORIDE 0.9% 1,000 ML IV SCH ×2 (06:03→22:10)
[2018-05-12] MEDS ORDERED: INSULIN PUMP BASAL RATES 1 EACH MISC MISCELLANE PRN (12:30)
[2018-05-12] MEDS ORDERED: INSULIN ASPART 100 UNIT/ML 1 ML 10 ML VIAL SQ PRN (12:30)
[2018-05-12] MEDS ORDERED: INSULIN PUMP ACTIVE INSULIN 1 EACH MISC MISCELLANE PRN (12:30)
[2018-05-12] MEDS ORDERED: INSPUCOR MISCELLANE PRN (12:30)
[2018-05-12] MEDS ORDERED: INSULIN PUMP TARGET GLUCOSE 1 EACH MISC MISCELLANE PRN (12:30)
[2018-05-12] MEDS ORDERED: ALBUTEROL NEBULIZED 2.5 MG/3 ML INHALATION PRN (13:13)
[2018-05-12] MEDS: INSULIN PUMP MEAL BOLUS 1 UNIT MISC MISCELLANE SCH ×3 (13:41→22:59)
[2018-05-12] MEDS: NICOTINE 14MG/24HR PATCH TRANSDERM SCH (13:41)
--- NOTE | 2018-05-12 14:17 | P.HPIM ---
History of Present Illness Patient is a 37-year-old type I diabetic presenting for left foot wound. Patient states that he had a left great toe amputation many years ago and that over the last week or so, he noted that his left foot was coming more swollen and that there was some foul smell coming from the wound at the left great toe stump. He denies any fevers or chills but states that both his legs are fairly swollen. He denies any chest pain or shortness breath. Patient denies any fever chills. Patient does not have leukocytosis. Patient was started on cefepime and vancomycin and cefepime was switched to Zosyn and infectious disease was consulted x-ray of the foot is suspicious for stomatitis of the second metatarsal head. Review of Systems REVIEW OF SYSTEMS: CONSTITUTIONAL: No fever, no malaise, no fatigue. HEENT: No recent visual problems or hearing problems. Denied any sore throat. CARDIOVASCULAR: No chest pain, orthopnea, PND, no palpitations, no syncope. PULMONARY: No shortness of breath, no cough, no hemoptysis. GASTROINTESTINAL: No diarrhea, no nausea, no vomiting, no abdominal pain. Normoactive bowel sounds. NEUROLOGICAL: No headaches, no weakness, no numbness. HEMATOLOGICAL: Denies any bleeding or petechiae. GENITOURINARY: Denies any burning micturition, frequency, or urgency. MUSCULOSKELETAL/RHEUMATOLOGICAL: Denies any joint pain, swelling, or any muscle pain. ENDOCRINE: Denies any polyuria or polydipsia. The rest of the 14-point review of systems is negative. Past Medical History Past Medical History: COPD, Diabetes Mellitus, Hypertension Additional Past Medical History / Comment(s): Diabetes mellitus type 1, diabetic neuropathy, diabetic retinopathy, hypertension, depression, history of a diabetic ulcer on the left greater toe that resulted in an amputation of the toe. previous amputation of right middle finger to the second knuckle due to work related injury History of Any Multi-Drug Resistant Organisms: None Reported Past Surgical History: Orthopedic Surgery Additional Past Surgical History / Comment(s): hand surg.-middle right finger ( to the second knuckle) amputated due to traumatic injury at work, PICC line placement and subsequent removal, multiple I&D. Amputation of L great toe due to a diabetic ulcer post surgical I & Past Anesthesia/Blood Transfusion Reactions: No Reported Reaction Past Psychological History: Anxiety, Depression Smoking Status: Heavy tobacco smoker Past Alcohol Use History: None Reported Additional Past Alcohol Use History / Comment(s): States smokes 1 pack over three days while using using chantix to quit (does not want to use a nicotine patch at this time). He denies any street drug use. He currently has been asked to leave his home with his . currently going through a divorce. 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 No service. No recent travels. quit meth approx 2 months ago Past Drug Use History: Marijuana, Methamphetamine Additional Drug Use History / Comment(s): . - Past Family History Father Family Medical History: No Reported History Mother Family Medical History: Cancer Medications and Allergies Home Medications Medication Instructions Recorded Confirmed Type Albuterol Inhaler [Ventolin Hfa 2 puff INHALATION RT-Q6H PRN 03/30/18 05/12/18 History Inhaler] Escitalopram [Lexapro] 20 mg PO DAILY 03/30/18 05/12/18 History Glucagon Emergency Kit 1 mg IM ONCE PRN 03/30/18 05/12/18 History Lisinopril [Zestril] 2.5 mg PO DAILY 03/30/18 05/12/18 History buPROPion HCL [Wellbutrin SR] 150 mg PO BID 03/30/18 05/12/18 History Metoprolol Tartrate [Lopressor] 50 mg PO DAILY tab 04/03/18 05/12/18 Rx Pregabalin [Lyrica] 100 mg PO BID cap 04/03/18 05/12/18 Rx Tamsulosin [Flomax] 0.4 mg PO HS cap.er.24h 04/03/18 05/12/18 Rx Insulin Aspart (For Pump) [NovoLOG 0.01 unit SQ-PUMP CONTINUOUS 05/12/18 History (For Pump)] Allergies Allergy/AdvReac Type Severity Reaction Status Date / Time No Known Allergies Allergy Verified 05/12/18 09:13 Physical Exam Vitals: Vital Signs Temp Pulse Pulse Resp BP BP Pulse Ox 05/12/18 07:00 98 F 89 12 149/99 99 05/12/18 00:30 98.3 F 87 16 140/87 98 05/12/18 00:00 149/97 05/11/18 23:30 143/96 05/11/18 23:27 143/96 05/11/18 23:00 68 16 123/79 98 05/11/18 22:30 60 16 138/87 97 05/11/18 22:00 65 16 150/93 98 05/11/18 21:30 61 16 143/90 97 05/11/18 21:28 100 16 143/90 98 05/11/18 20:45 98.8 F 114 H 18 119/70 97 Intake and Output 05/11/18 05/12/18 05/12/18 22:59 06:59 14:59 Intake Total 500 Output Total 1800 Balance -1300 Intake: Intake, IV Titration 500 Amount Sodium Chloride 0.9% 1, 500 000 ml @ 100 mls/hr IV . Q10H [facility] Rx#:[id number] Output: Urine 1800 Other: Weight 70.307 kg PHYSICAL EXAMINATION: GENERAL: The patient is alert and oriented x3, not in any acute distress. Well developed, well nourished. HEENT: Pupils are round and equally reacting to light. EOMI. No scleral icterus. No conjunctival pallor. Normocephalic, atraumatic. No pharyngeal erythema. No thyromegaly. CARDIOVASCULAR: S1 and S2 present. No murmurs, rubs, or gallops. PULMONARY: Chest is clear to auscultation, no wheezing or crackles. ABDOMEN: Soft, nontender, nondistended, normoactive bowel sounds. No palpable organomegaly. MUSCULOSKELETAL: No joint swelling or deformity. EXTREMITIES: No cyanosis, clubbing, or pedal edema. Patient had an amputated first toe the left foot with an ulceration although there is no exposed bone with surrounding cellulitis no significant pus base appears to be infected and the stump area NEUROLOGICAL: Gross neurological examination did not reveal any focal deficits. SKIN: No rashes. Results CBC & Chem 7: 05/11/18 21:14 05/11/18 21:14 Labs: Abnormal Lab Results - Last 24 Hours (Table) 05/11/18 05/11/18 05/11/18 Range/Units 21:14 21:14 21:29 RBC 3.76 L (4.30-5.90) m/uL Hgb 11.4 L (13.0-17.5) gm/dL Hct 31.9 L (39.0-53.0) % Creatinine 0.64 L (0.66-1.25) mg/dL Glucose 322 H (74-99) mg/dL POC Glucose (mg/dL) 347 H (75-99) mg/dL Alkaline Phosphatase 164 H (38-126) U/L Total Protein 5.3 L (6.3-8.2) g/dL Albumin 3.0 L (3.5-5.0) g/dL Thrombosis Risk Factor Assmnt - Choose All That Apply Any of the Below Risk Factors Present?: No Each Risk Factor Represents 2 Points: Age 61-74 years Thrombosis Risk Factor Assessment Total Risk Factor Score: 2 Thrombosis Risk Factor Assessment Level: Low Risk Assessment and Plan Plan: -Diabetic foot infection diabetic foot ulcer of the left fast and second metatarsal heads with possibility of possible colitis: Patient is on Zosyn and vancomycin wound cultures were obtained infectious disease will evaluate the patient. 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
[2018-05-12] MEDS ORDERED: PIPERACILLIN-TAZOBACTAM 3.375 GM in DEXTROSE/WATER 1 50ML.BAG IVPB SCH (16:00)
[2018-05-12 17:11] LABS: Glucose,Whole Blood 198 mg/dL (75-99)
[2018-05-12 20:28] LABS: Glucose,Whole Blood 155 mg/dL (75-99)
[2018-05-12] MEDS: TAMSULOSIN 0.4 MG CAP.ER.24H PO SCH (22:10)
[2018-05-12] MEDS: buPROPion SR 150 MG TABLET.ER PO SCH (22:10)
[2018-05-12] MEDS: PREGABALIN 100 MG CAP PO SCH (22:10)
[2018-05-12 22:49] LABS: Hemoglobin A1C 10.9 % (4.0-6.0)
--- NOTE | 2018-05-12 22:51 | CONS ---
CONSULTATION DATE OF SERVICE: 05/12/2018. REASON FOR CONSULTATION: Left foot wound and cellulitis. HISTORY OF PRESENT ILLNESS: The patient is a 37-year-old male who did have a history of left big toe amputation because of infection. The patient apparently did have a callus on the plantar aspect of his left foot. The patient has subsequently developed an ulcer to the left foot, plantar ulcer, which he did mention is more of a pustule on the skin and some clear secretion came out it, mostly milky as he mentions. He did have some swelling and redness of his left foot area with persistent worsening. He did present to the [facility] ER for further evaluation of the same. The patient did mention that he did have some dull aching pain to the with no radiation. The patient with these symptoms was evaluated by the ER physician. On arrival to the ER, the patient has been afebrile. His white count was 8.8. He did have x-rays of the left foot, which shows some changes at the 2nd and 3rd metatarsal head consistent with old fracture, lucency at the 2nd metatarsal head, possible osteomyelitis. The distal 4th metatarsal head appears unchanged. The patient was started on vancomycin and Zosyn was added. Infectious Disease was consulted for further recommendation regarding antibiotic therapy. REVIEW OF SYSTEMS: CONSTITUTIONAL: Positive for weakness but no high-grade fever. EYES: No complaint. ENT: No complaint. RESPIRATORY: No complaint. CARDIOVASCULAR: No complaint. GENITOURINARY: No complaint. GASTROINTESTINAL: No complaint. MUSCULOSKELETAL: As per HPI. INTEGUMENTARY: As per HPI. PSYCHOLOGICAL: No complaint. ENDOCRINE: No complaint. NEUROLOGIC: No complaint. PAST MEDICAL HISTORY: COPD, diabetes mellitus, hypertension, diabetic neuropathy, retinopathy, depression, diabetic foot ulcer on left great toe. PAST SURGICAL HISTORY: Left great toe amputation and middle finger traumatic injury at work. PAST MEDICAL HISTORY: History of anxiety and depression. SOCIAL HISTORY: Positive for smoking marijuana and amphetamine use. FAMILY HISTORY: Mother with history of cancer. ALLERGIES: No known drug allergies. MEDICATIONS: Currently include the patient is on Zosyn, vancomycin, Wellbutrin SR, Lexapro, NovoLog, Zestril, Lopressor, insulin pump, morphine sulfate, , nicotine patch, Lyrica, Flomax. EXAMINATION: Blood pressure is 147/96 with pulse of 92, temperature 98, he is 96% on room air. GENERAL DESCRIPTION: A middle-aged male, lying in bed in no distress. No tachypnea or accessory muscle of respiration use. HEENT: No pallor or scleral icterus. Oral mucosa is dry. No pharyngeal erythema. NECK: Trachea is central. No thyromegaly. LUNGS: Unlabored breathing. Clear to auscultation anteriorly. HEART: S1, S2. Regular rate and rhythm. ABDOMEN: Soft, no tenderness. No guarding or rigidity. EXTREMITIES: No edema of the feet. Examination of the left foot on the plantar aspect did have a wound from ruptured blister. Wound still looks superficial. Minimal slough tissue. Some surrounding swelling but no redness. No foul smelling drainage. NEUROLOGIC: The patient is awake, alert, oriented x3. Mood and affect normal. LABS: Hemoglobin 11.4, white count 8.8 with a BUN of 17, creatinine 0.64. Blood culture obtained currently pending. No local wound culture. DIAGNOSTIC IMPRESSION AND PLAN: Patient with left diabetic foot wound with secondary cellulitis, more likely a gram- positive skin bobby. Underlying gram infection not entirely excluded. Previous culture did have been predominantly Klebsiella and MSSA and Strep with no evidence of any MRSA infection. X-rays with no specific bony changes, especially at the left 1st metatarsal head area where the patient did have a wound and wound is not improved with . PLAN: 1. Discontinue the vancomycin and Zosyn. 2. Unasyn 3 g every 6 hours. 3. Local wound care with Aquacel dressing to be changed . 4. We will obtain a CRP pneumonia. 5. We will follow up on clinical condition and culture to further adjust medication if needed. Thank you for this consultation. Will follow this patient along with you. MMODL / IJN: [id number] /
[2018-05-13] MEDS: AMPICILLIN-SULBACTAM 3 GM in SODIUM CHLORIDE 0.9% 100 ML IVPB SCH ×5 (00:44→23:25)
[2018-05-13] MEDS: MORPHINE SULFATE 4 MG/ML SYRINGE IV PRN ×5 (02:41→21:01)
[2018-05-13] MEDS: SODIUM CHLORIDE 0.9% 1,000 ML IV SCH ×2 (03:58→05:28)
[2018-05-13 05:19] LABS: HGB 11.1 gm/dL (13.0-17.5); MCH 30.3 pg (25.0-35.0); MCHC 34.7 g/dL (31.0-37.0); MCV 87.4 fL (80.0-100.0); Mean Platelet Volume 6.7; Platelet Count 231 k/uL (150-450); RBC 3.66 m/uL (4.30-5.90); RDW 13.4 % (11.5-15.5); WBC 7.2 k/uL (3.8-10.6)
[2018-05-13 05:33] LABS: Anion Gap 4 mmol/L; Blood Urea Nitrogen 13 mg/dL (9-20); C Reactive Protein <5.0 mg/L (<10.0); Calcium 8.6 mg/dL (8.4-10.2); Carbon Dioxide 34 mmol/L (22-30); Chloride 100 mmol/L (98-107); Glucose 208 mg/dL (74-99); Potassium 4.2 mmol/L (3.5-5.1); Sodium 138 mmol/L (137-145)
[2018-05-13 06:24] LABS: Erythrocyte Sedimentation Rate 11 mm/hr (0-15)
[2018-05-13 07:37] LABS: Glucose,Whole Blood 230 mg/dL (75-99)
[2018-05-13] MEDS: ESCITALOPRAM 20 MG TAB PO SCH (08:25)
[2018-05-13] MEDS: METOPROLOL TARTRATE 50 MG TAB PO SCH (08:25)
[2018-05-13] MEDS: PREGABALIN 100 MG CAP PO SCH ×2 (08:25→20:54)
[2018-05-13] MEDS: LISINOPRIL 2.5 MG TAB PO SCH (08:25)
[2018-05-13] MEDS: NICOTINE 14MG/24HR PATCH TRANSDERM SCH (08:26)
[2018-05-13] MEDS: buPROPion SR 150 MG TABLET.ER PO SCH ×2 (08:26→21:34)
[2018-05-13] MEDS: INSULIN PUMP MEAL BOLUS 1 UNIT MISC MISCELLANE SCH ×4 (08:26→21:30)
[2018-05-13 12:04] VITALS: BMI 21.6
[2018-05-13 12:17] LABS: Glucose,Whole Blood 197 mg/dL (75-99)
--- NOTE | 2018-05-13 15:19 | P.PN ---
Subjective 35-year-old the time and diabetic came in infection of the left great toe wound cultures are being obtained. Continue with antibiotics. Blood sugars are fairly better controlled today than yesterday after diabetic education. Constitutional: Denied any fatigue denied any fever. Cardio vascular: denied any chest pain, palpitations Gastrointestinal denied any nausea vomiting Pulmonary: Denied any shortness of breath cough Neurologic denied any new focal deficits Objective - Vital Signs Vital signs: Vital Signs Temp 97.6 F 05/13/18 08:06 Pulse 103 H 05/13/18 08:06 Resp 16 05/13/18 08:06 BP 145/80 05/13/18 08:06 Pulse Ox 99 05/13/18 08:06 Intake & Output 05/12/18 05/13/18 05/13/18 18:59 06:59 18:59 Intake Total 1450 600 420 Output Total 1800 Balance -350 600 420 Weight 70.307 kg Intake: Intake, IV Titration 1450 600 Amount Piperacillin-Tazobactam 3 50 .375 gm In Dextrose/Water 1 50ml.bag @ 12.5 mls/hr IVPB Q8HR [facility] Rx#: [id number] Sodium Chloride 0.9% 1, 1300 600 000 ml @ 100 mls/hr IV . Q10H [facility] Rx#:[id number] cefTRIAXone 2,000 mg In 100 Sodium Chloride 0.9% 100 ml @ 100 mls/hr IVPB Q12H [facility] Rx#:[id number] Oral 420 Output: Urine 1800 Other: # Voids 3 1 - Exam PHYSICAL EXAMINATION: GENERAL: The patient is alert and oriented x3, not in any acute distress. Well developed, well nourished. HEENT: Pupils are round and equally reacting to light. EOMI. No scleral icterus. No conjunctival pallor. Normocephalic, atraumatic. No pharyngeal erythema. No thyromegaly. CARDIOVASCULAR: S1 and S2 present. No murmurs, rubs, or gallops. PULMONARY: Chest is clear to auscultation, no wheezing or crackles. ABDOMEN: Soft, nontender, nondistended, normoactive bowel sounds. No palpable organomegaly. MUSCULOSKELETAL: No joint swelling or deformity. EXTREMITIES: No cyanosis, clubbing, or pedal edema. Patient had an amputated first toe the left foot with an ulceration although there is no exposed bone with surrounding cellulitis no significant pus base appears to be infected and the stump area, redness improved NEUROLOGICAL: Gross neurological examination did not reveal any focal deficits. SKIN: No rashes. - Labs CBC & Chem 7: 05/13/18 04:45 05/13/18 04:45 Labs: Abnormal Lab Results - Last 24 Hours (Table) 05/11/18 05/12/18 05/12/18 Range/Units 21:14 17:07 20:26 RBC (4.30-5.90) m/uL Hgb (13.0-17.5) gm/dL Hct (39.0-53.0) % Carbon Dioxide (22-30) mmol/L Creatinine (0.66-1.25) mg/dL Glucose (74-99) mg/dL POC Glucose (mg/dL) 198 H 155 H (75-99) mg/dL Hemoglobin A1c 10.9 H (4.0-6.0) % 05/13/18 05/13/18 05/13/18 Range/Units 04:45 04:45 07:35 RBC 3.66 L (4.30-5.90) m/uL Hgb 11.1 L (13.0-17.5) gm/dL Hct 32.0 L (39.0-53.0) % Carbon Dioxide 34 H (22-30) mmol/L Creatinine 0.62 L (0.66-1.25) mg/dL Glucose 208 H (74-99) mg/dL POC Glucose (mg/dL) 230 H (75-99) mg/dL Hemoglobin A1c (4.0-6.0) % 05/13/18 Range/Units 12:06 RBC (4.30-5.90) m/uL Hgb (13.0-17.5) gm/dL Hct (39.0-53.0) % Carbon Dioxide (22-30) mmol/L Creatinine (0.66-1.25) mg/dL Glucose (74-99) mg/dL POC Glucose (mg/dL) 197 H (75-99) mg/dL Hemoglobin A1c (4.0-6.0) % Microbiology - Last 24 Hours (Table) 05/11/18 21:14 Blood Culture - Preliminary Blood No Growth after 24 hours Assessment and Plan Plan: -Diabetic foot infection diabetic foot ulcer of the left fast and second metatarsal heads with possibility of possible colitis: He is on Unasyn now -Type 2 diabetes mellitus elevated hemoglobin C A1c available education was provided regarding usage of insulin pump Diabetic peripheral neuropathy patient is on pregabalin which will be continued -Hypertension -Depression -Chronic Urinary retention secondary to diabetes mellitus and neuropathy and patient is on Flomax which will be continued For above-mentioned chronic medical problems patient will be resumed on appropriate home medications
[2018-05-13 18:25] LABS: Glucose,Whole Blood 122 mg/dL (75-99)
[2018-05-13 19:51] LABS: Glucose,Whole Blood 226 mg/dL (75-99)
[2018-05-13] MEDS: TAMSULOSIN 0.4 MG CAP.ER.24H PO SCH (20:54)
--- NOTE | 2018-05-13 23:19 | PN ---
PROGRESS NOTE DATE OF SERVICE: 05/13/2018 REASON FOR FOLLOWUP: Left diabetic foot infection. INTERVAL HISTORY: The patient is currently afebrile. He is breathing comfortably. The patient's main symptom remains significant swelling in both of his legs. He did have some superficial wound on his left foot plantar aspect at the site of his left big toe amputation. No significant purulence was noticed or any drainage and no pain to the left foot area. Denies having any chest pain, shortness of breath or cough. No abdominal pain or any diarrhea. PHYSICAL EXAMINATION: Blood pressure 127/74 with a pulse of 92, temperature 98.5. He is 99% on room air. General description is a middle-aged male lying in bed in no distress. RESPIRATORY SYSTEM: Unlabored breathing. Clear to auscultation anteriorly. HEART: S1, S2. Regular rate and rhythm. ABDOMEN: Soft. No tenderness. Left foot DIAGNOSTIC IMPRESSION AND PLAN: Left diabetic foot infection with a wound on the lateral aspect and secondary cellulitis, clinically suspicious for an underlying deep infection. Patient is currently covered with Unasyn; that will be continued. Will wait for the culture to finalize to determine discharge antibiotics. Local care to continue with an Aquacel Silver dressing. Continue with supportive care. MMODL / IJN: [id number] /
[2018-05-14] MEDS: SODIUM CHLORIDE 0.9% 1,000 ML IV SCH ×3 (01:47→21:32)
[2018-05-14] MEDS: AMPICILLIN-SULBACTAM 3 GM in SODIUM CHLORIDE 0.9% 100 ML IVPB SCH ×3 (05:13→19:08)
[2018-05-14] MEDS: MORPHINE SULFATE 4 MG/ML SYRINGE IV PRN ×3 (07:21→20:18)
[2018-05-14 07:38] LABS: Glucose,Whole Blood 175 mg/dL (75-99)
[2018-05-14 08:41] LABS: ALT 26 U/L (21-72); AST 17 U/L (17-59); Albumin 2.9 g/dL (3.5-5.0); Alkaline Phosphatase 63 U/L (38-126); Anion Gap 3 mmol/L; Blood Urea Nitrogen 12 mg/dL (9-20); Calcium 8.4 mg/dL (8.4-10.2); Carbon Dioxide 37 mmol/L (22-30); Chloride 98 mmol/L (98-107); Glucose 164 mg/dL (74-99); Potassium 4.7 mmol/L (3.5-5.1); Sodium 138 mmol/L (137-145); Total Bilirubin 0.2 mg/dL (0.2-1.3); Total Protein 5.3 g/dL (6.3-8.2)
[2018-05-14] MEDS: LISINOPRIL 2.5 MG TAB PO SCH (09:31)
[2018-05-14] MEDS: buPROPion SR 150 MG TABLET.ER PO SCH ×2 (09:31→22:32)
[2018-05-14] MEDS: NICOTINE 14MG/24HR PATCH TRANSDERM SCH (09:31)
[2018-05-14] MEDS: ESCITALOPRAM 20 MG TAB PO SCH (09:31)
[2018-05-14] MEDS: PREGABALIN 100 MG CAP PO SCH ×2 (09:31→21:31)
[2018-05-14] MEDS: METOPROLOL TARTRATE 50 MG TAB PO SCH (09:32)
[2018-05-14] MEDS: INSULIN PUMP MEAL BOLUS 1 UNIT MISC MISCELLANE SCH ×4 (09:34→20:10)
[2018-05-14] MEDS ORDERED: VANCOMYCIN IV PER PHARMACY 1 EACH MISC MISCELLANE PRN (11:29)
[2018-05-14 11:41] LABS: Glucose,Whole Blood 180 mg/dL (75-99)
[2018-05-14] MEDS ORDERED: VANCOMYCIN 1,500 MG in SODIUM CHLORIDE 0.9% 250 ML IVPB STA (12:09)
[2018-05-14 17:14] LABS: Glucose,Whole Blood 157 mg/dL (75-99)
--- NOTE | 2018-05-14 17:53 | CDI ---
Last Revision, June 2017 Documentation Clarification Form Date: 05/14/2018 5:39:49 PM From: Tressa Bernabe RN, CCDS Admit Date: 05/11/2018 11:23:00 PM Patient Name: Mukesh Thapa Visit Number: [id number] Discharge Date: ATTENTION: The Clinical Documentation Specialists (CDI) and [facility] Coding Staff appreciate your assistance in clarifying documentation. Please respond to the clarification below the line at the bottom and electronically sign. The CDI & [facility] Coding staff will review the response and follow-up if needed. Please note: Queries are made part of the Legal Health Record. If you have any questions, please contact the author of this message via ITS. Kait Card MD Osteomyelitis has been documented in the foot XR on 05/11/18. History/Risk Factors: Diabetes Mellitus, Left big toe amputation, Clinical Indicators: Developed an ulcer to the left foot, plantar ulcer, with swelling and redness of his left foot area with persistent worsening. Labs: WBC 8.8 X-Ray Results: Changes at the 2nd and 3rd metatarsal head consistent with old fracture, lucency at the 2nd metatarsal head possible osteomyelitis. Treatment: Unasyn IV Local wound care with Adquacel dressing In your professional opinion, please specify the following: Left 2nd metatarsal head possible osteomyelitis Osteomyelitis Ruled in Osteomyelitis Ruled out Acuity: Acute Chronic Subacute Unable to Determine Cause: Viral (specify organism if know): Bacterial (specify organism if know): Other (please specify): Unable to Determine Associated condition (if applicable): Diabetic Major osseous defect (specify site) Other (please specify): Please continue to document in your progress notes and discharge summary in order to capture severity of illness and risk of mortality. Include clinical findings that support your diagnosis. MTDD
[2018-05-14 20:13] LABS: Glucose,Whole Blood 283 mg/dL (75-99)
[2018-05-14] MEDS: TAMSULOSIN 0.4 MG CAP.ER.24H PO SCH (21:31)
[2018-05-14] MEDS ORDERED: VANCOMYCIN 1,500 MG in SODIUM CHLORIDE 0.9% 250 ML IVPB SCH (22:00)
--- NOTE | 2018-05-14 22:05 | PN ---
PROGRESS NOTE DATE OF SERVICE: 05/14/2018 REASON FOR FOLLOWUP: Left diabetic foot wound with secondary cellulitis. INTERVAL HISTORY: The patient is currently afebrile. He is breathing comfortably. Denies having any chest pain, shortness of breath or cough. No abdominal pain or any significant pain in the left foot area. PHYSICAL EXAMINATION: Blood pressure 126/73 with a pulse of 94, temperature 98.3. He is 98% on room air. General description is a middle-aged male up in the bed in no distress. RESPIRATORY SYSTEM: Unlabored breathing. Clear to auscultation anteriorly. HEART: S1, S2. Regular rate and rhythm. ABDOMEN: Soft. No tenderness. Left foot wound is currently dressed up. No obvious drainage on the dressing. LABS: BUN of 12, creatinine 0.59. Wound culture with presumptive MRSA. DIAGNOSTIC IMPRESSION AND PLAN: Patient with left diabetic foot infection, Robert's grade 2, with abnormality seen on the x-rays of the foot with the second metatarsal head; however, the patient currently does not have any abnormality or wound at the second toe. Wound culture with possible MRSA. Vancomycin has been added. Patient's sed rate has not been elevated, making it unlikely an osteomyelitis. We will continue the patient on Unasyn with the vancomycin added today. Discharge antibiotic depending upon the final culture as well as clinical response. Continue with supportive care. MMODL / IJN: [id number] /
[2018-05-14] MEDS: VANCOMYCIN 1,250 MG in SODIUM CHLORIDE 0.9% 250 ML IVPB SCH (22:37)
[2018-05-15] MEDS: traMADol 50 MG TAB PO PRN ×4 (00:25→20:37)
[2018-05-15] MEDS: AMPICILLIN-SULBACTAM 3 GM in SODIUM CHLORIDE 0.9% 100 ML IVPB SCH ×4 (00:44→17:46)
[2018-05-15] MEDS: MORPHINE SULFATE 4 MG/ML SYRINGE IV PRN ×4 (01:43→22:16)
[2018-05-15] MEDS: VANCOMYCIN 1,250 MG in SODIUM CHLORIDE 0.9% 250 ML IVPB SCH ×3 (06:24→22:15)
[2018-05-15 07:03] LABS: Glucose,Whole Blood 177 mg/dL (75-99)
[2018-05-15] MEDS: PREGABALIN 100 MG CAP PO SCH ×2 (08:41→20:31)
[2018-05-15] MEDS: ESCITALOPRAM 20 MG TAB PO SCH (08:41)
[2018-05-15] MEDS: NICOTINE 14MG/24HR PATCH TRANSDERM SCH (08:41)
[2018-05-15] MEDS: INSULIN PUMP MEAL BOLUS 1 UNIT MISC MISCELLANE SCH ×4 (08:41→20:31)
[2018-05-15] MEDS: METOPROLOL TARTRATE 50 MG TAB PO SCH (08:41)
[2018-05-15] MEDS: buPROPion SR 150 MG TABLET.ER PO SCH ×2 (08:42→20:31)
[2018-05-15] MEDS: LISINOPRIL 2.5 MG TAB PO SCH (08:44)
[2018-05-15] MEDS: SODIUM CHLORIDE 0.9% 1,000 ML IV SCH ×2 (08:50→17:43)
[2018-05-15 11:53] LABS: Glucose,Whole Blood 109 mg/dL (75-99)
[2018-05-15 16:01] LABS: Glucose,Whole Blood 50 mg/dL (75-99)
[2018-05-15 16:15] LABS: Glucose,Whole Blood 76 mg/dL (75-99)
[2018-05-15 17:25] LABS: Glucose,Whole Blood 83 mg/dL (75-99)
[2018-05-15] MEDS: TAMSULOSIN 0.4 MG CAP.ER.24H PO SCH (20:31)
[2018-05-15 20:36] LABS: Glucose,Whole Blood 206 mg/dL (75-99)
--- NOTE | 2018-05-15 21:13 | P.PN ---
Subjective Progress Note Date: 05/14/18 progress note being dictated for Dr. Butcher. Interval history:this is a 37-year-old the time and diabetic came in infection of the left great toe wound cultures are being obtained. Continue with antibiotics. Blood sugars are fairly better controlled today than yesterday after diabetic education. Constitutional: Denied any fatigue denied any fever. Cardio vascular: denied any chest pain, palpitations Gastrointestinal denied any nausea vomiting Pulmonary: Denied any shortness of breath cough Neurologic denied any new focal deficits 05/14/2018 maintained on IV antibiotics of Vancomycin and Unasyn as per infectious disease. Preliminary wound cultures reporting presumptive MRSA.Pain currently controlled. blood sugars improving.afebrile.denies chest pain, palpitations or increasing shortness of breath. Objective - Vital Signs Vital signs: Vital Signs Temp 97.6 F 05/14/18 15:00 Pulse 79 05/14/18 15:00 Resp 16 05/14/18 07:26 BP 92/55 05/14/18 15:00 Pulse Ox 99 05/14/18 15:00 Intake & Output 05/14/18 05/14/18 05/15/18 06:59 18:59 06:59 Intake Total 1500 360 Balance 1500 360 Intake: Intake, IV Titration 1300 Amount Ampicillin-Sulbactam 3 gm 200 In Sodium Chloride 0.9% 100 ml @ 200 mls/hr IVPB Q6HR RICHARD Rx#:[id number] Sodium Chloride 0.9% 1, 1100 000 ml @ 100 mls/hr IV . Q10H RICHARD Rx#:[id number] Oral 200 360 Other: # Voids 1 - Exam EXAMINATION: GENERAL: The patient is sitting up in a chair,alert and oriented x3, not in any acute distress. HEENT: Pupils are round and equally reacting to light. EOMI. No scleral icterus. No conjunctival pallor. Normocephalic, atraumatic. No pharyngeal erythema. No thyromegaly. CARDIOVASCULAR: S1 and S2 present. No murmurs, rubs, or gallops. PULMONARY: Chest is clear to auscultation, no wheezing or crackles. ABDOMEN: Soft, nontender, nondistended, normoactive bowel sounds. No palpable organomegaly. MUSCULOSKELETAL: No joint swelling or deformity. EXTREMITIES: No cyanosis, clubbing, or pedal edema. Left foot dressing, clean, dry and intact. NEUROLOGICAL: Gross neurological examination did not reveal any focal deficits. - Labs CBC & Chem 7: 05/13/18 04:45 05/14/18 07:35 Labs: Abnormal Lab Results - Last 24 Hours (Table) 05/14/18 05/14/18 05/14/18 Range/Units 07:16 07:35 11:30 Carbon Dioxide 37 H (22-30) mmol/L Creatinine 0.59 L (0.66-1.25) mg/dL Glucose 164 H (74-99) mg/dL POC Glucose (mg/dL) 175 H 180 H (75-99) mg/dL Total Protein 5.3 L (6.3-8.2) g/dL Albumin 2.9 L (3.5-5.0) g/dL 05/14/18 05/14/18 Range/Units 17:01 20:12 Carbon Dioxide (22-30) mmol/L Creatinine (0.66-1.25) mg/dL Glucose (74-99) mg/dL POC Glucose (mg/dL) 157 H 283 H (75-99) mg/dL Total Protein (6.3-8.2) g/dL Albumin (3.5-5.0) g/dL Microbiology - Last 24 Hours (Table) 05/13/18 11:55 Gram Stain - Preliminary Toe - Left Second Wound Culture - Preliminary Presumptive MRSA 05/11/18 21:14 Blood Culture - Preliminary Blood No Growth after 48 hours Assessment and Plan Assessment: -Diabetic Left foot infection with ulcer, Robert's grade 2,changes at the second and third metatarsal heads consistent with old fractures,lucency at second metatarsal-possible osteomyelitis, though doubtful given non-elevated sed rate. 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 Plan.: COntinue on current medical therapy, monitoring. Antibiotics as per ID. Close monitoring of blood sugars. Discharge planning in progress for tomorrow, pending final culture results. The impression and plan of care has been dictated as directed. : I performed a history and examination of this patient, discussed the same with the dictator. I agree with the dictator's note ,documented as a scribe. Any additional findings or plans will be noted.
--- NOTE | 2018-05-15 21:21 | P.PN ---
Subjective Progress Note Date: 05/15/18 progress note being dictated for Dr. Guzman Interval history:this is a 37-year-old the time and diabetic came in infection of the left great toe wound cultures are being obtained. Continue with antibiotics. Blood sugars are fairly better controlled today than yesterday after diabetic education. Constitutional: Denied any fatigue denied any fever. Cardio vascular: denied any chest pain, palpitations Gastrointestinal denied any nausea vomiting Pulmonary: Denied any shortness of breath cough Neurologic denied any new focal deficits 05/14/2018 maintained on IV antibiotics of Vancomycin and Unasyn as per infectious disease. Preliminary wound cultures reporting presumptive MRSA.Pain currently controlled. blood sugars improving.afebrile.denies chest pain, palpitations or increasing shortness of breath. 05/15/2018 continues to do well, on IV antibiotics. Afebrile. Denies shortness of breath. Denies lightheadedness dizziness or focal deficits. Blood sugars currently in the low 200s. Objective - Vital Signs Vital signs: Vital Signs Temp 98 F 05/15/18 14:34 Pulse 77 05/15/18 14:34 Resp 16 05/15/18 14:34 BP 132/81 05/15/18 14:34 Pulse Ox 100 05/15/18 14:34 Intake & Output 05/15/18 05/15/18 05/16/18 06:59 18:59 06:59 Intake Total 950 880 Balance 950 880 Intake: Oral 950 480 Other 400 Other: Voiding Method Toilet # Voids 3 3 - Exam EXAMINATION: GENERAL: alert and oriented x3, not in any acute distress. HEENT: Pupils are round and equally reacting to light. EOMI. No scleral icterus. No conjunctival pallor. Normocephalic, atraumatic. CARDIOVASCULAR: S1 and S2 present. No murmurs, rubs, or gallops. PULMONARY: Chest is clear to auscultation, no wheezing or crackles. ABDOMEN: Soft, nontender, nondistended, normoactive bowel sounds. No palpable organomegaly. MUSCULOSKELETAL: No joint swelling or deformity. EXTREMITIES: No cyanosis, clubbing, or pedal edema. Left foot dressing, clean, dry and intact. NEUROLOGICAL: Gross neurological examination did not reveal any focal deficits. - Labs CBC & Chem 7: 05/13/18 04:45 05/14/18 07:35 Labs: Abnormal Lab Results - Last 24 Hours (Table) 05/15/18 05/15/18 05/15/18 Range/Units 06:57 11:39 15:48 POC Glucose (mg/dL) 177 H 109 H 50 L (75-99) mg/dL 05/15/18 Range/Units 20:25 POC Glucose (mg/dL) 206 H (75-99) mg/dL Microbiology - Last 24 Hours (Table) 05/12/18 Unknown Anaerobic Culture - Preliminary Toe - Left Second 05/13/18 11:55 Gram Stain - Final Toe - Left Second Wound Culture - Final Methicillin resist S. aureus 05/11/18 21:14 Blood Culture - Preliminary Blood No Growth after 72 hours Assessment and Plan Assessment: -Diabetic Left foot MRSA infection with ulcer, Robert's grade 2,changes at the second and third metatarsal heads consistent with old fractures,lucency at second metatarsal-possible osteomyelitis, though doubtful given non-elevated sed rate. 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 Plan.: COntinue on current medical therapy, monitoring. Antibiotics as per ID. Close monitoring of blood sugars. Dr. Vanessa recommending another day of IV antibiotics, monitoring. Discharge planning in progress for tomorrow, pending ID clearance. The impression and plan of care has been dictated as directed. : I performed a history and examination of this patient, discussed the same with the dictator. I agree with the dictator's note ,documented as a scribe. Any additional findings or plans will be noted.
--- NOTE | 2018-05-15 22:33 | PN ---
PROGRESS NOTE DATE OF SERVICE: 05/15/2018. REASON FOR FOLLOWUP: Left diabetic foot wound infection. INTERVAL HISTORY: The patient is currently afebrile. He is breathing comfortably. Denies having any chest pain, shortness of breath, abdominal pain, or any worsening pain to the left foot area. EXAMINATION: Blood pressure is 130/70 with a pulse of 80, temperature 98.3. He is 100% on room air. General description is a middle-aged male lying in bed in no distress. Respiratory system: Unlabored breathing, clear to auscultation anteriorly. Heart S1, S2. Regular rate and rhythm. ABDOMEN soft. No tenderness. Left foot plantar wound significantly improved. Some swelling. No redness or any drainage. LABS: Sedimentation rate is 11. No CBC was done today. Wound culture with MRSA. DIAGNOSTIC IMPRESSION AND PLAN: Patient with left diabetic foot infection, superficial. No evidence of osteomyelitis clinically, abnormality on the x-ray is pointing towards the 2nd digit which currently no abnormality exists. The patient does have a wound at the left big toe amputation site which looks superficial. The patient with no fever, no white count or elevated Sed rate making it to be less likely osteomyelitis. The patient, at this time, on vancomycin that will be transitioned to oral Bactrim DS for about a week tomorrow and the patient will be closely followed up in outpatient setting. Continue supportive care. MMODL / IJN: [id number] /
[2018-05-16] MEDS: AMPICILLIN-SULBACTAM 3 GM in SODIUM CHLORIDE 0.9% 100 ML IVPB SCH ×3 (00:33→11:35)
[2018-05-16] MEDS ORDERED: VANCOMYCIN TROUGH DUE 1 EACH MISC MISCELLANE ONE (05:00)
[2018-05-16] MEDS: SODIUM CHLORIDE 0.9% 1,000 ML IV SCH ×2 (05:23→11:37)
[2018-05-16] MEDS: MORPHINE SULFATE 4 MG/ML SYRINGE IV PRN ×2 (05:24→11:21)
[2018-05-16 05:35] LABS: Anion Gap 4 mmol/L; Blood Urea Nitrogen 12 mg/dL (9-20); Calcium 8.5 mg/dL (8.4-10.2); Carbon Dioxide 32 mmol/L (22-30); Chloride 103 mmol/L (98-107); Glucose 87 mg/dL (74-99); Potassium 4.3 mmol/L (3.5-5.1); Sodium 139 mmol/L (137-145)
[2018-05-16] MEDS: VANCOMYCIN 1,250 MG in SODIUM CHLORIDE 0.9% 250 ML IVPB SCH (06:37)
[2018-05-16 06:56] LABS: Glucose,Whole Blood 201 mg/dL (75-99)
[2018-05-16 07:58] VITALS: RESP 16; TEMP 98
[2018-05-16] MEDS: PREGABALIN 100 MG CAP PO SCH (08:40)
[2018-05-16] MEDS: traMADol 50 MG TAB PO PRN (08:40)
[2018-05-16] MEDS: METOPROLOL TARTRATE 50 MG TAB PO SCH (08:40)
[2018-05-16] MEDS: buPROPion SR 150 MG TABLET.ER PO SCH (08:41)
[2018-05-16] MEDS: INSULIN PUMP MEAL BOLUS 1 UNIT MISC MISCELLANE SCH ×2 (08:41→11:22)
[2018-05-16] MEDS: NICOTINE 14MG/24HR PATCH TRANSDERM SCH ×2 (08:41→08:43)
[2018-05-16] MEDS: ESCITALOPRAM 20 MG TAB PO SCH (08:41)
[2018-05-16] MEDS: LISINOPRIL 2.5 MG TAB PO SCH (08:41)
[2018-05-16 11:22] LABS: Glucose,Whole Blood 400 mg/dL (75-99)
[2018-05-16 11:28] VITALS: PULSE 84
[2018-05-16] MEDS ORDERED: VANCOMYCIN 1,000 MG in SODIUM CHLORIDE 0.9% 250 ML IVPB SCH (14:00)
[2018-05-16 14:54] VITALS: BP 112/68
--- NOTE | 2018-05-16 15:23 | P.DS ---
Providers Date of admission: 05/11/18 23:23 Expected date of discharge: 05/16/18 Attending physician: Mauricio Guzman Consults: 05/11/18 23:22 Consult Physician Routine Consulting Provider: Kait Vanessa Consult Reason/Comments: Osteomyelitis Do you want consulting provider notified?: Yes, Notify in am Primary care physician: Physician Nonstaff Hospital Course: Final Diagnoses: -Diabetic Left foot MRSA infection with ulcer, Robert's grade 2,changes at the second and third metatarsal heads consistent with old fractures,lucency at second metatarsal-possible osteomyelitis, though doubtful given non-elevated sed rate. 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 Hospital course:this is a 37-year-old diabetic admitted with infection of the left great toe wound. Evaluated by infectious disease, maintained on IV antibiotics. Cultures obtained: Microbiology 05/13/18 11:55 Toe - Left Second Gram Stain - Final 05/13/18 11:55 Toe - Left Second Wound Culture - Final Methicillin resist S. aureus 05/11/18 21:14 Blood Blood Culture - Preliminary No Growth after 96 hours 05/12/18 Unknown Toe - Left Second Anaerobic Culture - Preliminary Significant clinical improvement. Patient has been cleared for discharge by infectious disease. Patient is being discharged home in a stable condition with guarded prognosis. EXAMINATION: GENERAL: alert and oriented x3, not in any acute distress. CARDIOVASCULAR: S1 and S2 present. No murmurs, rubs, or gallops. PULMONARY: Chest is clear to auscultation, no wheezing or crackles. ABDOMEN: Soft, nontender, nondistended, normoactive bowel sounds. No palpable organomegaly. EXTREMITIES: No cyanosis, clubbing, or pedal edema. Left foot dressing, clean, dry and intact. NEUROLOGICAL: Gross neurological examination did not reveal any focal deficits. The impression and plan of care has been dictated as directed. : I performed a history and examination of this patient, discussed the same with the dictator. I agree with the dictator's note ,documented as a scribe. Any additional findings or plans will be noted. Time taken: 35 minutes Patient Condition at Discharge: Stable Plan - Discharge Summary Discharge Rx Participant: Yes New Discharge Prescriptions: New Nicotine 14Mg/24Hr Patch [Habitrol] 1 patch TRANSDERM DAILY #30 patch traMADol HCl [Ultram] 50 mg PO Q6H PRN #20 tab PRN Reason: Pain Sulfamethox-Tmp 800-160Mg [Bactrim DS 800-160 mg] 1 tab PO Q12HR #20 tab Continue Glucagon Emergency Kit 1 mg IM ONCE PRN PRN Reason: Hypoglycemia buPROPion HCL [Wellbutrin SR] 150 mg PO BID Escitalopram [Lexapro] 20 mg PO DAILY Albuterol Inhaler [Ventolin Hfa Inhaler] 2 puff INHALATION RT-Q6H PRN PRN Reason: Shortness Of Breath Lisinopril [Zestril] 2.5 mg PO DAILY Metoprolol Tartrate [Lopressor] 50 mg PO DAILY tab Pregabalin [Lyrica] 100 mg PO BID cap Tamsulosin [Flomax] 0.4 mg PO HS cap.er.24h Insulin Aspart (For Pump) [NovoLOG (For Pump)] 0.01 unit SQ-PUMP CONTINUOUS Discharge Medication List Albuterol Inhaler [Ventolin Hfa Inhaler] 2 puff INHALATION RT-Q6H PRN 03/30/18 [ History] Escitalopram [Lexapro] 20 mg PO DAILY 03/30/18 [History] Glucagon Emergency Kit 1 mg IM ONCE PRN 03/30/18 [History] Lisinopril [Zestril] 2.5 mg PO DAILY 03/30/18 [History] buPROPion HCL [Wellbutrin SR] 150 mg PO BID 03/30/18 [History] Metoprolol Tartrate [Lopressor] 50 mg PO DAILY tab 04/03/18 [Rx] Pregabalin [Lyrica] 100 mg PO BID cap 04/03/18 [Rx] Tamsulosin [Flomax] 0.4 mg PO HS cap.er.24h 04/03/18 [Rx] Insulin Aspart (For Pump) [NovoLOG (For Pump)] 0.01 unit SQ-PUMP CONTINUOUS [History] Nicotine 14Mg/24Hr Patch [Habitrol] 1 patch TRANSDERM DAILY #30 patch 05/15/18 [ Rx] traMADol HCl [Ultram] 50 mg PO Q6H PRN #20 tab 05/15/18 [Rx] Sulfamethox-Tmp 800-160Mg [Bactrim DS 800-160 mg] 1 tab PO Q12HR #20 tab [Rx] Follow up Appointment(s)/Referral(s): Eliana Ramsay MD [REFERRING] - 05/27/18 1:00 am Kait Vanessa MD [STAFF PHYSICIAN] - 05/29/18 9:45 am Ambulatory/Diagnostic Orders: Complete Blood Count w/diff [LAB.AMB] Time Frame: 3 Days, Location: None Selected Activity/Diet/Wound Care/Special Instructions: Aquacel silver dressing to the left foot wound change q48hr follow up with Dr vanessa next week at wound care call [phone] to make an appointment next week saturday Diet: Consistent carb Activity: Limited till f/u
[2018-05-17] MEDS ORDERED: VANCOMYCIN TROUGH DUE 1 EACH MISC MISCELLANE ONE (13:00)
--- NOTE | 2018-05-19 09:16 | PN ---
PROGRESS NOTE DATE OF SERVICE: 05/16/2018. REASON FOR FOLLOWUP: Left foot diabetic foot wound infection with MRSA. INTERVAL HISTORY: The patient is currently afebrile. He is feeling much better, breathing comfortably. Denies having any chest pain, shortness of breath, abdominal pain, no pain to the left foot area. EXAMINATION: Blood pressure 112/68 with a pulse of 84, temperature 98. He is 94% on room air. General description is a middle aged male up in the bed in no distress. Respiratory system unlabored breathing. Clear to auscultation anteriorly. Heart S1, S2. Regular rate and rhythm. Skin is left foot plantar wound has decreased in size. No swelling, redness or drainage. No fluctuation. LABS: BUN of 12, creatinine 0.71, and Vanco trough of 13.3. DIAGNOSTIC IMPRESSION AND PLAN: Patient with left diabetic foot wound with secondary cellulitis. Osteomyelitis has been ruled out. Clinically the patient at this time will be transitioned to Bactrim DS 1 twice a day. Local wound care to continue with Aquacel silver dressing and to [facility] next [facility]. Prescription has been sent to the pharmacy. Continue supportive care. MMODL / IJN: [id number] /
== END 2018-05-16 16:40 | disposition home or self-care (01) | DRG 638 ==
LOC: EC 20:33 → UNDOADMIN 23:23 → 4SSUR 23:23
PROVIDERS: ADMIT Internal Medicine; ATTEND Internal Medicine
DX: E10.628 Type 1 diabetes mellitus with other skin complications (principal); L03.116 Cellulitis of left lower limb; E10.621 Type 1 diabetes mellitus with foot ulcer; J44.9 Chronic obstructive pulmonary disease, unspecified; I10 Essential (primary) hypertension; E10.319 Type 1 diabetes mellitus with unspecified diabetic retinopathy without macular edema; F32.9 Major depressive disorder, single episode, unspecified; F17.210 Nicotine dependence, cigarettes, uncomplicated; E10.42 Type 1 diabetes mellitus with diabetic polyneuropathy; E10.65 Type 1 diabetes mellitus with hyperglycemia; R33.9 Retention of urine, unspecified; Z96.41 Presence of insulin pump (external) (internal); E10.69 Type 1 diabetes mellitus with other specified complication; F41.9 Anxiety disorder, unspecified; B95.62 Methicillin resistant Staphylococcus aureus infection as the cause of diseases classified elsewhere; Z89.412 Acquired absence of left great toe; Z79.4 Long term (current) use of insulin; Z79.899 Other long term (current) drug therapy
CPT/HCPCS: 36415; 80048; 80053; 80202; 83036; 83605; 85025; 85027; 85610; 85652; 85730; 86140; 87040; 87070; 87075; 87077; 87186; 87205; 96365; 96366; 96367; 96375; 99284